=== PATIENT | female | born 1940 | race Caucasian/White ===

== ENCOUNTER 2023-01-29 10:28 | Inpatient (IN) | payer MEDICARE, SELFPAY ==
[2023-01-29 10:40] VITALS: BP 200/74; PULSE 63; RESP 18; TEMP 37.4; O2SAT 96; BMI 24.9
--- NOTE | 2023-01-29 10:48 | CRLHL7_ITS ---
For Patients: As a result of the Century Cures Act, medical imaging exams and procedure reports are released immediately into your electronic medical record. You may view this report before your referring provider. If you have questions, please contact your health care provider. Indication: PAIN, SWOLLEN, DENTAL ABSCESS Technique: Helical axial sections were obtained through the facial skeleton, mandible and adjacent structures without intravenous contrast material. Data was reformatted not only in axial but also coronal planes. Comparison: None Findings: Examination of oral cavity and left facial structures is limited due to significant metallic streak artifact from dental hardware. No fracture is demonstrated in the facial skeleton or mandible. The orbits and their contents are normal in appearance. There is no evidence for penetrating injury to the ocular globes. The lenses are situated in their normally expected anterior locations. No radiodense or metallic foreign body is demonstrated. No significant abnormality is demonstrated in the sinonasal cavities or adjacent structures. Moderate mucosal thickening in the left maxillary sinus. Mild mucosal thickening along the floor of the right maxillary sinus. The ostiomeatal complexes on each side are structurally normal and widely patent. The nasal septum is relatively midline. Periapical lucency along the root of the left maxillary canine tooth with erosion of the buccal cortex. There is moderate adjacent soft tissue swelling of the left nasolabial fold, left facial subcutaneous fat extending to the left submandibular fat concerning for cellulitis. No discrete fluid collection is identified on this noncontrast exam. There is mild thickening of the partially visualized left platysma muscle concerning for myositis. The visualized portions of the brain are normal in appearance. Thinning of the roof and posterior wall of the left superior semicircular canal raises the possibility for dehiscence. Multilevel cervical facet arthrosis. Fusion of the right C2-3 posterior elements. Impression: 1. Periapical lucency along the root of the left maxillary canine tooth with erosion of the buccal cortex. There is moderate adjacent soft tissue swelling of the left nasolabial fold, left facial subcutaneous fat extending to the left submandibular fat concerning for cellulitis. There is mild thickening of the partially visualized left platysma muscle concerning for myositis. No discrete fluid collection is identified on this noncontrast exam. Examination of oral cavity and left facial structures is limited due to significant metallic streak artifact from dental hardware. 2. No facial bone fractures. 3. Thinning of the roof and posterior wall of the left superior semicircular canal raises the possibility for dehiscence. 4. Cervical spondylosis. Please note that all CT scans at this facility use dose modulation, iterative reconstruction, and/or weight-based dosing when appropriate to reduce radiation dose to as low as reasonably achievable. Dictated by Satish Jimenez MD @ 01/29/2023 11:33:27 AM (Electronically Signed)
--- NOTE | 2023-01-29 10:49 | ED.GENADULT ---
HPI - General Adult General Time Seen by Provider: 10:49 Date Seen: 01/29/23 Chief complaint: Dental/Oral/Mouth Injury/Pain Stated complaint: LT side of face very swollen Time Seen by Provider: 01/29/23 10:34 Source: patient Mode of arrival: ambulatory Limitations: no limitations History of Present Illness HPI narrative: Patient is a 82 year white female diabetic insulin-dependent who developed left facial swelling after a sore tooth on the upper gumline about 2 days ago, she noted marked swelling in her left cheek and even up around her eye today. Patient denies rigors or chills has been in a good amount of pain in her left cheek area and gumline area. She has been able to swallow and drink, has no nuchal rigidity. She has been on metformin and insulin as well as metoprolol. Patient presents to ED in moderate discomfort and alert oriented, but seeking help for her situation Related Data Home Medications Medication Instructions Recorded Confirmed insulin glargine 100 unit/mL (3 12 unit subcut HS 05/25/22 01/29/23 mL) subcutaneous pen amlodipine 5 mg tablet 5 mg PO DAILY 01/29/23 01/29/23 chlorthalidone 25 mg tablet 25 mg PO DAILY 01/29/23 01/29/23 insulin aspart U-100 100 unit/mL 5 - 7 unit subcut TIDWMEAL 01/29/23 01/29/23 (3 mL) subcutaneous pen losartan 100 mg tablet 100 mg PO DAILY 01/29/23 01/29/23 metformin 500 mg tablet,extended 2,000 mg PO QPM 01/29/23 01/29/23 release 24 hr metoprolol tartrate 50 mg tablet 50 mg PO BID 01/29/23 01/29/23 Allergies Allergy/AdvReac Type Severity Reaction Status Date / Time No Known Allergies Allergy Verified 01/29/23 13:49 Review of Systems Status of ROS: Reports: 6 or more systems reviewed and unremarkable except as noted in History and below PFSH [facility] Social History Smoking Status: Never smoker Exam Narrative: Exam Narrative: Objective: Patient's vital signs show slightly elevated temperature 99.3?, blood pressure elevated 200/74 O2 sat 96% on room air HEENT shows swelling over her upper eyelid lower eyelid left vehicle area, mild warmth to the vehicle area no obvious fluctuance She has tenderness along her gumline on the left but no obvious abscess throat appears clear Neck is supple Pulse regular Neurologic nonfocal Const: Vital Signs, click to edit/add: Vital Signs - 24 hr 01/29/23 10:40 Temperature 99.3 F Pulse Rate [Right Pulse Oximeter] 63 Respiratory Rate 18 Blood Pressure [Ri ght Upper Arm] 200/74 H Pulse Oximetry 96 Oxygen Delivery Me thod Room Air Course Vital Signs Vital signs: Initial Vital Signs Temperature 99.3 F 01/29/23 10:40 Temperature Source Temporal Artery Scan 01/29/23 10:40 Pulse Rate 63 01/29/23 10:40 Respiratory Rate 18 01/29/23 10:40 Blood Pressure 200/74 H 01/29/23 10:40 Blood Pressure Mean 116 H 01/29/23 10:40 Blood Pressure Position Sitting 01/29/23 10:40 Pulse Oximetry 96 01/29/23 10:40 Oxygen Delivery Method Room Air 01/29/23 10:40 Vital Signs Temperature 99.3 F 01/29/23 10:40 Pulse Rate 63 01/29/23 10:40 Respiratory Rate 18 01/29/23 10:40 Blood Pressure 200/74 H 01/29/23 10:40 Pulse Oximetry 96 01/29/23 10:40 Oxygen Delivery Method Room Air 01/29/23 10:40 Temperature 99.3 F 01/29/23 10:40 Pulse Rate 63 01/29/23 10:40 Respiratory Rate 18 01/29/23 10:40 Blood Pressure 200/74 H 01/29/23 10:40 Pulse Oximetry 96 01/29/23 10:40 Oxygen Delivery Method Room Air 01/29/23 10:40 Medical Decision Making [facility] Narrative Medical decision making narrative: The patient is an 82 year white female diabetic with left facial swelling and likely be a cool cellulitis versus tooth infection. I think at this point a CT scan of her face would be appropriate and maxillofacial bones, blood cultures, IV fluid, IV Zosyn. Patient may need observation in the hospital and repeat antibiotic dosages to make sure this is improving. I am concerned that she is diabetic and might have difficulty getting rid of this infection, and may need further workup and follow-up. Please see addendum dictation. Addendum: Patient has an elevated white count, has a low-grade fever, has CT scan of the face that shows facial cellulitis as well as oscar dental infection possible. I think at this point IV antibiotics and hospital admission be appropriate and treat aggressively. Will notify hospitalist Addendum: Discussed with Dr. Cazares [facility] on-call oral surgeon. Discussed the case, CT findings and he was not convinced that immediate surgery without obvious drainable abscess would be appropriate. And would recommend IV antibiotics which is probably would happen at [facility]. I think we can do that here keep close eye on the patient watch her swelling. Pain control and referred to Dentistry as needed. Patient was comfortable plan. Will discuss with hospitalist as mention. Lab Data Labs: Lab Results 01/29/23 Range/Units 11:15 WBC 12.61 H (4.50-11.00) K/uL RBC 4.46 (4.00-5.20) m/uL Hgb 13.9 (12.0-16.0) gm/dL Hct 40.3 (33.0-51.0) % MCV 90 (80-100) fL MCH 31 (26-34) pg MCHC 35 (32-36) gm/dL RDW Coeff of Funmilayo 11.9 (11.5-15.5) % Plt Count 261 (140-440) K/uL Neut % (Auto) 78.8 H (42.0-72.0) % Lymph % (Auto) 10.9 L (20-44) % [place] % (Auto) 8.1 (0.0-11.0) % Eos % (Auto) 1.8 (0.0-7.0) % Baso % (Auto) 0.2 (0.0-3.0) % Neut # (Auto) 9.90 H (1.7-7.0) K/uL Lymph # (Auto) 1.40 (0.90-2.90) K/uL [place] # (Auto) 1.00 H (0.00-0.90) K/UL Eos # (Auto) 0.20 (0.00-0.50) K/uL Baso # (Auto) 0.00 (0.00-0.30) K/uL Sodium 136 (135-149) mmol/L Potassium 3.7 (3.6-5.1) mmol/L Chloride 102 (96-114) mmol/L Carbon Dioxide 25 (20-32) mmol/L BUN 20 (7-30) mg/dL Creatinine 0.7 (0.5-1.5) mg/dL Estimated Creat Clear 32.73 Estimated GFR 86 ml/min Glucose 268 H (60-115) mg/dL Calcium 9.7 (8.4-10.6) mg/dL C-Reactive Protein 5.2 H (0.5-1.0) mg/dL
[2023-01-29 11:20] LABS: Basophils Percent Auto 0.2 % (0.0-3.0); Eosinophils Percent Auto 1.8 % (0.0-7.0); Hematocrit 40.3 % (33.0-51.0); Hemoglobin* 13.9 gm/dL (12.0-16.0); Immature Granulocytes Pct Auto 0.2 %; Lymphocytes Percent Auto 10.9 % (20-44); Mean Corpuscular HGB Conc 35 gm/dL (32-36); Mean Corpuscular Hemoglobin 31 pg (26-34); Mean Corpuscular Volume 90 fL (80-100); Monocytes Percent Auto 8.1 % (0.0-11.0); Neutrophils Percent Auto 78.8 % (42.0-72.0); Platelet Count* 261 K/uL (140-440); RDW Coefficient of Variation % 11.9 % (11.5-15.5); Red Blood Count 4.46 m/uL (4.00-5.20); White Blood Count* 12.61 K/uL (4.50-11.00)
[2023-01-29 11:24] LABS: Slide Review Reflex No
[2023-01-29 11:40] LABS: Chloride* 102 mmol/L (96-114); Potassium* 3.7 mmol/L (3.6-5.1); Sodium* 136 mmol/L (135-149)
[2023-01-29 11:43] LABS: Carbon Dioxide* 25 mmol/L (20-32); Creatinine* 0.7 mg/dL (0.5-1.5); Est. Creatinine Clearance* 32.73; Estimated Glomerular Filt Rate 86 ml/min
[2023-01-29 11:44] LABS: Blood Urea Nitrogen* 20 mg/dL (7-30); Calcium* 9.7 mg/dL (8.4-10.6); Glucose* 268 mg/dL (60-115)
[2023-01-29 11:47] LABS: C Reactive Protein* 5.2 mg/dL (0.5-1.0)
[2023-01-29] MEDS: 0.9 % SODIUM CHLORIDE 500 ML 500 ML IV (11:47)
[2023-01-29] MEDS: PIPERACILLIN/TAZOBACTAM 3.375 GM in 0.9 % SODIUM CHLORIDE Mini-bag 100 ML IVPB (11:48)
[2023-01-29] MEDS: MORPHINE 2 MG/ML inj IVP (11:48)
[2023-01-29] MEDS: MORPHINE 4 MG/ML INJ 2 MG IVP (12:47)
[2023-01-29 13:48] VITALS: BP 177/70; PULSE 67; RESP 16; TEMP 36.8; O2SAT 95; BMI 26.1
--- NOTE | 2023-01-29 14:07 | P.IMHP_ITS ---
Hospitalist- H&P: HPI History of Present Illness Date Seen: 01/29/23 Chief complaint: LT side of face very swollen Narrative: Lynn Martins is a 82 year old female presenting for evaluation of left facial swelling. The patient lives alone in [place]. She has a history of Insulin dependent T2DM, HTN, who has noted progressive left side facial swelling. She has had increased pain when chewing. She is able to tolerate oral liquids and solids. She has had low grade temp but no fever. She presented to ED where CT face showed Periapical lucency along the root of the left maxillary canine tooth with erosion of the buccal cortex. There is moderate adjacent soft tissue swelling of the left nasolabial fold, left facial subcutaneous fat extending to the left submandibular fat concerning for cellulitis. There is mild thickening of the partially visualized left platysma muscle concerning for myositis. No discrete fluid collection is identified on this noncontrast exam. Examination of oral cavity and left facial structures is limited due to significant metallic streak artifact from dental hardware. No facial bone fractures. Thinning of the roof and posterior wall of the left superior semicircular canal raises the possibility for dehiscence. Her case was discussed with oral surgery. She was started on zosyn and admitted for further evaluation. [facility] Social History Smoking Status: Never smoker Do you use any of these nicotine containing products: None How often do you have a drink containing alcohol: never How often do you have six or more drinks on one occasion: Never AUDIT-C Alcohol total score: 0 Non-prescribed substance use: denies use Caffeine: Yes service: No Meds Home Medications and Allergies Home Medications Medication Instructions Recorded Confirmed Type insulin glargine 100 unit/mL (3 12 unit subcut HS 05/25/22 01/29/23 History mL) subcutaneous pen amlodipine 5 mg tablet 5 mg PO DAILY 01/29/23 01/29/23 History chlorthalidone 25 mg tablet 25 mg PO DAILY 01/29/23 01/29/23 History insulin aspart U-100 100 unit/mL 5 - 7 unit subcut TIDWMEAL 01/29/23 01/29/23 History (3 mL) subcutaneous pen losartan 100 mg tablet 100 mg PO DAILY 05/06/23 05/06/23 History metformin 500 mg tablet,extended 2,000 mg PO QPM 01/29/23 01/29/23 History release 24 hr metoprolol tartrate 50 mg tablet 50 mg PO BID 01/29/23 01/29/23 History Allergies Allergy/AdvReac Type Severity Reaction Status Date / Time No Known Allergies Allergy Verified 01/29/23 13:49 Exam Narrative: Exam Narrative: Gen: no acute distress HEENT: NCAT EOMI mmm; erythema and edema of left face Neck: Supple CV: RRR normal s1 s2 Lungs: CTAB Abd: Soft,nt, nd Neuro: Alert, oriented, CN grossly intact; nonfocal screening exam Psych: appropriate affect MSK: age appropriate muscle mass Skin; Warm, dry no rash on face Const: Vital Signs, click to edit/add: Vital Signs - 24 hr 01/29/23 10:40 Temperature 99.3 F Pulse Rate [Right Pulse Oximeter] 63 Respiratory Rate 18 Blood Pressure [Ri ght Upper Arm] 200/74 H Pulse Oximetry 96 Oxygen Delivery Me thod Room Air Hospitalist - H&P: Result Labs Labs: Short CBC 01/29/23 Range/Units 11:15 WBC 12.61 H (4.50-11.00) K/uL Hgb 13.9 (12.0-16.0) gm/dL Hct 40.3 (33.0-51.0) % Plt Count 261 (140-440) K/uL BMP 01/29/23 11:15 Sodium 136 Potassium 3.7 Chloride 102 Carbon Dioxide 25 BUN 20 Creatinine 0.7 Glucose 268 H Calcium 9.7 Assessment and Plan Assessment and plan (1) Cellulitis: Status: Acute (2) Hypertension: Status: Acute (3) Type II diabetes mellitus: Status: Acute Plan Lynn Martins is a 82 year old female presenting for evaluation of left facial swelling. She presented to ED where CT face showed Periapical lucency along the root of the left maxillary canine tooth with erosion of the buccal cortex. There is moderate adjacent soft tissue swelling of the left nasolabial fold, left facial subcutaneous fat extending to the left submandibular fat concerning for cellulitis. There is mild thickening of the partially visualized left platysma muscle concerning for myositis. No discrete fluid collection is identified on this noncontrast exam. Examination of oral cavity and left facial structures is limited due to significant metallic streak artifact from dental hardware. No facial bone fractures. Thinning of the roof and posterior wall of the left superior semicircular canal raises the possibility for dehiscence. Her case was discussed with oral surgery. She was started on zosyn and admitted for further evaluation. 1. Left facial cellulitis 2. Hx of Type II DM 3. Hx of HTn Plan -admit to inpatient -dc zosyn; start unasyn -pain control -hold metformin -continue presser automatic antihypertensives -outpatient Oral Surgery follow up; if no improvement consider repeat CT scan with contrast Code-Full DVt ppx-
[2023-01-29] MEDS: OXYCODONE 5 MG TABLET PO ×2 (14:32→22:28)
[2023-01-29 15:51] VITALS: BP 167/98; PULSE 66; RESP 18; TEMP 37.2; O2SAT 94
[2023-01-29] MEDS: AMPICILLIN/SULBACTAM 3 GM in 0.9 % SODIUM CHLORIDE Mini-bag 100 ML IVPB ×2 (16:23→22:30)
[2023-01-29] MEDS: SODIUM CHLORIDE 0.9 % (FLUSH) 10 ML SYRINGE 5 ML IVF ×2 (16:23→20:17)
[2023-01-29] MEDS: ONDANSETRON 2 MG/ML inj 4 MG IVP (16:35)
[2023-01-29] MEDS: 0.9 % SODIUM CHLORIDE 250 ml IV (16:36)
[2023-01-29 19:22] VITALS: BP 174/71; PULSE 73; RESP 20; TEMP 36.7; O2SAT 94
[2023-01-29] MEDS: PROCHLORPERAZINE 5 MG/ML VIAL IVP (20:16)
[2023-01-29] MEDS: METOPROLOL TARTRATE 50 MG TABLET PO (21:08)
--- NOTE | 2023-01-29 22:15 | PC.NURSE ---
[id number]: Patient pleasant and cooperative. A&Ox3. Afebrile. Rates pain 2-3/10 on L. side of face. Zofran and Compazine administered for emesis x2. Independent in room and walked halls x2. Eating and voiding.
[2023-01-29] MEDS: MELATONIN 3 MG TABLET PO (22:28)
[2023-01-29 22:37] VITALS: BP 166/95; PULSE 68; RESP 18; TEMP 36.9; O2SAT 93
[2023-01-29 23:00] VITALS: RESP 18
[2023-01-30] VITALS (9 sets, daily range): BP systolic 148–165; BP diastolic 56–82; PULSE 55–73; RESP 16–20; TEMP 36.6–37.5; O2SAT 82–95
[2023-01-30] MEDS: AMPICILLIN/SULBACTAM 3 GM in 0.9 % SODIUM CHLORIDE Mini-bag 100 ML IVPB ×4 (03:42→21:34)
--- NOTE | 2023-01-30 06:38 | PC.NURSE ---
23-: pleasant and cooperative. [place]. Hearing aids charging. Indep. Walks halls. Left side of face and eye swollen, pain controlled with prn oxy given prev shift, pt declined need for ice pack or Tylenol. O2 sats dropped 82% on RA while asleep, 2L O2 NC applied, maintaining sats in the low 90s.
[2023-01-30 06:48] LABS: Basophils Percent Auto 0.4 % (0.0-3.0); Eosinophils Percent Auto 0.8 % (0.0-7.0); Hemoglobin* 12.4 gm/dL (12.0-16.0); Immature Granulocytes Pct Auto 0.2 %; Lymphocytes Percent Auto 13.1 % (20-44); Mean Corpuscular HGB Conc 34 gm/dL (32-36); Mean Corpuscular Hemoglobin 32 pg (26-34); Mean Corpuscular Volume 93 fL (80-100); Monocytes Percent Auto 9.2 % (0.0-11.0); Neutrophils Percent Auto 76.3 % (42.0-72.0); Platelet Count* 225 K/uL (140-440); Red Blood Count 3.88 m/uL (4.00-5.20); White Blood Count* 11.17 K/uL (4.50-11.00)
[2023-01-30 06:54] LABS: Slide Review Reflex No
[2023-01-30 06:58] LABS: Chloride* 102 mmol/L (96-114); Potassium* 3.9 mmol/L (3.6-5.1); Sodium* 137 mmol/L (135-149)
[2023-01-30 07:01] LABS: Creatinine* 0.8 mg/dL (0.5-1.5); Est. Creatinine Clearance* 32.73; Estimated Glomerular Filt Rate 74 ml/min
[2023-01-30 07:02] LABS: Blood Urea Nitrogen* 18 mg/dL (7-30); Calcium* 9.4 mg/dL (8.4-10.6); Carbon Dioxide* 31 mmol/L (20-32); Glucose* 178 mg/dL (60-115)
[2023-01-30 07:16] LABS: C Reactive Protein* 13.6 mg/dL (0.5-1.0)
[2023-01-30] MEDS: LOSARTAN POTASSIUM 50 MG TABLET 100 MG PO (08:43)
[2023-01-30] MEDS: AMLODIPINE 5 MG TABLET PO (08:44)
[2023-01-30] MEDS: METOPROLOL TARTRATE 50 MG TABLET PO ×2 (08:44→20:39)
[2023-01-30] MEDS: CHLORTHALIDONE 25 MG TABLET PO (08:45)
[2023-01-30] MEDS: SODIUM CHLORIDE 0.9 % (FLUSH) 10 ML SYRINGE 5 ML IVF ×2 (09:26→20:45)
--- NOTE | 2023-01-30 15:15 | PM.IMPN1 ---
Progress Note: A&P Assessment and plan (1) Cellulitis: Problem details: Left facial likely due to left canine dental abscess. Responding to IV ampicillin with sulbactam. Status: Acute (2) Hypertension: Status: Acute (3) Type II diabetes mellitus: Status: Acute Plan 1. Reviewed impression with patient. 2. Answered her questions. 3. Continue current plan of care including IV antibiotics and insulin. 4. Patient agreeable to above stated plans and recommendations Time Spent With Patient Total time spent: 30 minute Subjective Time Seen by Provider: 09:00 Date Seen: 01/30/23 Interval history: Hospital day 2. 82-year-old woman with left facial cellulitis from left canine dental abscess. She was given a single dose of piperacillin with tazobactam IV in the emergency department yesterday then subsequently admitted to the floor and started on ampicillin sulbactam. Tolerating this. Exam Narrative: Exam Narrative: T-max today 99.5? F. Appears comfortable and in no acute distress. Friendly, cooperative, articulate. Alert and oriented to self, place, time, situation. Mood and affect are congruent. Persistent mild to moderate amount of left facial erythema and swelling including left suborbital. Patient indicates this is vastly improved from yesterday. Oropharynx benign in appearance. Tenderness to palpation over left canine. Neck is supple. Lungs clear to auscultation. Heart tones with regular rhythm. Abdomen benign. Const: Vital Signs, click to edit/add: Vital Signs - 24 hr 01/29/23 15:51 01/29/23 19:22 01/29/23 22:37 Temperature 98.9 F 98.0 F 98.4 F Pulse Rate [Apical ] 66 73 68 Pulse Rate [Pulse Oximeter] Respiratory Rate 18 20 18 Blood Pressure [Ri ght Arm] 167/98 H 174/71 H 166/95 H Pulse Oximetry 94 94 93 Oxygen Delivery Me thod Room Air Room Air Room Air Oxygen Flow Rate 01/29/23 23:00 01/30/23 03:00 01/30/23 03:53 Temperature 99.4 F Pulse Rate [Apical ] Pulse Rate [Pulse Oximeter] 69 Respiratory Rate 18 20 Blood Pressure [Ri ght Arm] 148/56 H Pulse Oximetry 82 L 92 Oxygen Delivery Me thod Room Air Nasal Cannula Oxygen Flow Rate 2 01/30/23 08:09 01/30/23 12:45 Temperature 99.5 F 98.5 F Pulse Rate [Apical ] Pulse Rate [Pulse Oximeter] 73 58 L Respiratory Rate 16 16 Blood Pressure [Ri ght Arm] 153/82 H 160/67 H Pulse Oximetry 91 91 Oxygen Delivery Me thod Room Air Room Air Oxygen Flow Rate Documenting provider has reviewed patient's vital signs: yes HENMT: Mouth: tongue not normal Labs Labs: Laboratory Results - last 24 hr 01/30/23 06:10 WBC 11.17 H RBC 3.88 L Hgb 12.4 Hct 36.0 MCV 93 MCH 32 MCHC 34 RDW Coeff of Funmilayo 12.0 Plt Count 225 Neut % (Auto) 76.3 H Lymph % (Auto) 13.1 L [place] % (Auto) 9.2 Eos % (Auto) 0.8 Baso % (Auto) 0.4 Neut # (Auto) 8.50 H Lymph # (Auto) 1.50 [place] # (Auto) 1.00 H Eos # (Auto) 0.10 Baso # (Auto) 0.00 Sodium 137 Potassium 3.9 Chloride 102 Carbon Dioxide 31 BUN 18 Creatinine 0.8 Estimated Creat Clear 32.73 Estimated GFR 74 Glucose 178 H Calcium 9.4 C-Reactive Protein 13.6 H
[2023-01-30] MEDS: 0.9 % SODIUM CHLORIDE 250 ml IV ×2 (16:19→16:22)
--- NOTE | 2023-01-30 17:45 | PC.NURSE ---
Pt calm and cooperative during shift (15-1900). Pt alert and oriented. Pt had pain ranging from 1-2. Pain is a 1 when the left side of face is untouched and rates pain a 2 when touching. Pt did not want anything for pain during shift. Pt is independent in room/hallway. Pt's blood glucose 181 see EMAR for insulin adminstration.Pt's IV infiltrated, it was removed catheter intact and new IV placed in L forearm.
--- NOTE | 2023-01-30 18:07 | PC.NURSE ---
Shift Summary 07-15: Patient pleasant and cooperative, up independently, seen walking in halls. Denies nausea, rated pain 2/10 denied need for medication. Tolerating regular diet. Vitals stable and WNL.
[2023-01-30] MEDS: MELATONIN 3 MG TABLET PO (20:38)
[2023-01-31] MEDS: AMPICILLIN/SULBACTAM 3 GM in 0.9 % SODIUM CHLORIDE Mini-bag 100 ML IVPB ×2 (03:24→10:06)
[2023-01-31 03:31] VITALS: BP 136/85; PULSE 65; RESP 16; TEMP 37.1; O2SAT 92
--- NOTE | 2023-01-31 03:34 | PC.NURSE ---
Pt rested well this night. Up IND and walking halls. Afebrile. Left side of face slightly swollen. Rates 1-2 with touch. Oriented and pleasant.
[2023-01-31 07:00] VITALS: BP 163/78; PULSE 62; RESP 14; TEMP 36.7; O2SAT 96
[2023-01-31 07:17] LABS: Hematocrit 34.4 % (33.0-51.0); Hemoglobin* 11.8 gm/dL (12.0-16.0); Mean Corpuscular HGB Conc 34 gm/dL (32-36); Mean Corpuscular Hemoglobin 31 pg (26-34); Mean Corpuscular Volume 92 fL (80-100); Platelet Count* 207 K/uL (140-440); Red Blood Count 3.76 m/uL (4.00-5.20); Slide Review Reflex No; White Blood Count* 8.19 K/uL (4.50-11.00)
[2023-01-31 07:36] LABS: Chloride* 101 mmol/L (96-114); Potassium* 3.2 mmol/L (3.6-5.1); Sodium* 136 mmol/L (135-149)
[2023-01-31 07:39] LABS: Blood Urea Nitrogen* 20 mg/dL (7-30); Carbon Dioxide* 29 mmol/L (20-32); Creatinine* 0.6 mg/dL (0.5-1.5); Est. Creatinine Clearance* 32.73; Estimated Glomerular Filt Rate 90 ml/min; Glucose* 166 mg/dL (60-115)
[2023-01-31 07:40] LABS: Calcium* 9.2 mg/dL (8.4-10.6)
[2023-01-31] MEDS: LOSARTAN POTASSIUM 50 MG TABLET 100 MG PO (09:13)
[2023-01-31] MEDS: AMLODIPINE 5 MG TABLET PO (09:13)
[2023-01-31] MEDS: METOPROLOL TARTRATE 50 MG TABLET PO (09:13)
[2023-01-31] MEDS: CHLORTHALIDONE 25 MG TABLET PO (09:13)
[2023-01-31] MEDS: SODIUM CHLORIDE 0.9 % (FLUSH) 10 ML SYRINGE 5 ML IVF ×2 (10:06→10:07)
[2023-01-31 10:51] VITALS: RESP 14; TEMP 36.7
--- NOTE | 2023-01-31 12:20 | PC.NURSE ---
Patient alert and oriented x 3. Pain to left upper lip and left maxilla reported, patients declines any tylenol for pain. Lungs clear and bowel sounds active x 4 quadrants. Patient reports that she was able to make a dental appointment for this afternoon. Patient discharged from unit at 1125 accompanied by self and patient 's personal vehicle.
--- NOTE | 2023-01-31 12:35 | P.DS_ITS ---
DS: Providers Provider Time Seen by Provider: 08:20 Date Seen: 01/31/23 Date of admission: 01/29/23 14:07 Primary care physician: Not a Local Provider Admitting Clinician: Benito Matias MD Attending Physician on discharge: Benito Matias MD Date of Discharge: 01/31/23 DS: Diagnosis Discharge Diagnosis (1) Cellulitis: Status: Acute Problem details: Left facial likely due to left canine dental abscess. Responding to IV ampicillin with sulbactam. (2) Dental abscess: Status: Acute Problem details: Left canine (3) Type II diabetes mellitus: Status: Acute (4) Hypertension: Status: Acute DS: Summary Hospital Course Hospital Course: Lynn Martins is a 82 year old female presenting for evaluation of left facial swelling. The patient lives alone in [place]. She has a history of Insulin dependent T2DM, HTN, who has noted progressive left side facial swelling. She has had increased pain when chewing. She is able to tolerate oral liquids and solids. She has had low grade temp but no fever. She presented to ED where CT face showed?Periapical lucency along the root of the left maxillary canine tooth with erosion of the buccal cortex. There is moderate adjacent soft tissue swelling of the left nasolabial fold, left facial subcutaneous fat extending to the left submandibular fat concerning for cellulitis. There is mild thickening of the partially visualized left platysma muscle concerning for myositis. No discrete fluid collection is identified on this noncontrast exam. Examination of oral cavity and left facial structures is limited due to significant metallic streak artifact from dental hardware. No facial bone fractures. Thinning of the roof and posterior wall of the left superior semicircular canal raises the possibility for dehiscence. Her case was discussed with oral surgery, who recommended admission for IV antibiotics and close monitoring. If she is responsive to the IV antibiotics then in time switch to oral antibiotics and have her follow-up with her dentist in the outpatient setting. If she is not responsive to the IV antibiotics then transfer her to a tertiary care facility that is able to provide source control. Patient responded well to ampicillin sulbactam IV antibiotics at we initiated in hospital. The pain, swelling, erythema improved over the course of the time that she was here in the hospital. We switched to oral Augmentin and arrange for to have follow-up with her dentist the next 2-4 days. She is to return to the dentist's office, Clinic, or hospital sooner if her condition warrants. Status at Discharge Functional status at discharge: independent ambulation Overall status at discharge: patient is progressing back to baseline Time Spent with Patient Time attestation: Total time spent providing and/or coordinating discharge services: Time spent: Less than 30 minutes Exam Narrative: Exam Narrative: T-max today 99.5? F. Appears comfortable and in no acute distress. Friendly, cooperative, articulate.? Alert and oriented to self, place, time, situation.? Mood and affect are congruent. Persistent mild to moderate amount of left facial erythema and swelling including left suborbital.? Patient indicates this is vastly improved from yesterday. Oropharynx benign in appearance.? Tenderness to palpation over left canine. Neck is supple. Lungs clear to auscultation.? Heart tones with regular rhythm.? Abdomen benign. Independent in transfer, station, and gait. No focal motor neurologic deficits. No lower extremity edema. Const: Vital Signs, click to edit/add: Vital Signs - 24 hr 01/30/23 12:45 01/30/23 15:00 01/30/23 15:15 Temperature 98.5 F 98.0 F Pulse Rate [Pulse Oximeter] 58 L 67 67 Respiratory Rate 16 18 18 Blood Pressure [Ri ght Arm] 160/67 H 158/68 H Pulse Oximetry 91 92 Oxygen Delivery Me thod Room Air Room Air 01/30/23 19:00 01/30/23 22:10 01/30/23 22:14 Temperature 98.7 F 97.8 F Pulse Rate [Pulse Oximeter] 65 55 L 55 L Respiratory Rate 16 16 16 Blood Pressure [Ri ght Arm] 165/68 H 151/61 H Pulse Oximetry 94 95 Oxygen Delivery Me thod Room Air Room Air 01/31/23 03:31 01/31/23 07:00 01/31/23 10:51 Temperature 98.7 F 98.0 F 98.0 F Pulse Rate [Pulse Oximeter] 65 62 Respiratory Rate 16 14 14 Blood Pressure [Ri ght Arm] 136/85 163/78 H Pulse Oximetry 92 96 Oxygen Delivery Me thod Room Air Room Air Documenting provider has reviewed patient's vital signs: yes DS: Data Data Completed and Pending Labs on day of discharge: Labs from last 24 hours 01/31/23 06:14 WBC 8.19 RBC 3.76 L Hgb 11.8 L Hct 34.4 MCV 92 MCH 31 MCHC 34 Plt Count 207 Sodium 136 Potassium 3.2 L Chloride 101 Carbon Dioxide 29 BUN 20 Creatinine 0.6 Estimated Creat Clear 32.73 Estimated GFR 90 Glucose 166 H Calcium 9.2 Preliminary micro results at discharge 01/29/23 11:20 Blood Culture - Preliminary Blood NO GROWTH AFTER 48 HOURS 01/29/23 11:15 Blood Culture - Preliminary Blood NO GROWTH AFTER [address] of face: Attestation: I have reviewed the pertinent imaging results. Radiologist's impression: Impression: 1. Periapical lucency along the root of the left maxillary canine tooth with erosion of the buccal cortex. There is moderate adjacent soft tissue swelling of the left nasolabial fold, left facial subcutaneous fat extending to the left submandibular fat concerning for cellulitis. There is mild thickening of the partially visualized left platysma muscle concerning for myositis. No discrete fluid collection is identified on this noncontrast exam. Examination of oral cavity and left facial structures is limited due to significant metallic streak artifact from dental hardware. 2. No facial bone fractures. 3. Thinning of the roof and posterior wall of the left superior semicircular canal raises the possibility for dehiscence. 4. Cervical spondylosis. Discharge Plan Discharge Disposition: Home, Self-Care Date of Admission: 01/29/23 14:07 Attending Provider on Discharge: Benito Matias Primary Care Provider: Provider,Not a Local Condition: Improved Anticipated Discharge Date/Time: 01/31/23 11:30 Discharge Medications: New amoxicillin-pot clavulanate 875-125 mg tablet 1 tab PO BID Qty: 14 0RF acetaminophen 325 mg tablet 650 mg PO QID PRNQty: 100 0RF Continued insulin glargine 100 unit/mL (3 mL) insulin pen 12 unit subcut HS chlorthalidone 25 mg tablet 25 mg PO DAILY amlodipine 5 mg tablet 5 mg PO DAILY metoprolol tartrate 50 mg tablet 50 mg PO BID losartan 100 mg tablet 100 mg PO DAILY metformin 500 mg tablet extended release 24 hr 2,000 mg PO QPM insulin aspart U-100 100 unit/mL (3 mL) insulin pen 5 - 7 unit subcut TIDWMEAL Rx Instructions: TAKES 5 UNITS WITH BREAKFAST 6-7 UNITS WITH LUNCH AND SUPPER Discharge Orders: Discharge Order (Routine); Ordered 01/31/23 Ordered By: Benito Matias Patient Education: Acetaminophen (By mouth), Amoxicillin/Clavulanate Potassium (By mouth) (Augmentin, Augmentin..., Dental Abscess (GEN), Cellulitis (GEN) Additional Instructions: 1. Make appointment to see your dentist in next 2-4 days; 2. Complete entire course of antibiotic therapy initiated; 3. Return to dentist, clinic, or hospital sooner if needed. Activity Level: No Restrictions and Activity as Tolerated Discharge Diet: Diabetic Follow Up Appointments: Provider,Not a Local [Primary Care Provider] - (Make an appointment to see your dentist in 2 to 4 days. ) Mona Al MD [Referring] - Forms: Tag & See Info Instructions
== END 2023-01-31 11:20 | disposition home or self-care (01) | DRG 603 ==
LOC: ED 12:03 → MEDSURG 13:13
PROVIDERS: Hospitalist; Admitting Provider Internal Medicine; Emergency Provider Family Medicine; Visit Provider Internal Medicine
DX: L03.211 Cellulitis of face (principal); K04.7 Periapical abscess without sinus; E11.9 Type 2 diabetes mellitus without complications; Z79.4 Long term (current) use of insulin; Z79.84 Long term (current) use of oral hypoglycemic drugs; I10 Essential (primary) hypertension
CPT/HCPCS: 36415; 70486; 80048; 82962; 85025; 85027; 86140; 87040; 99284; A9270; J0295; J0780; J2270; J2405; J2543; J7050; J7120

== ENCOUNTER 2023-11-28 10:33 | Outpatient (RCR) | payer SELFPAY | END 2024-01-23 14:47 | disposition home or self-care (01) | LOC: MOW 10:33 | PROVIDERS: Visit Provider Physician Assistant | DX: Z76.0 Encounter for issue of repeat prescription (principal) | CPT/HCPCS: S5170 ==

== ENCOUNTER 2024-04-15 20:53 | Emergency (ER) | payer MEDICARE, MEDICAID, SELFPAY ==
[2024-04-15 20:59] VITALS: BP 155/98; PULSE 72; RESP 18; TEMP 36.7; O2SAT 96; BMI 23.8
--- NOTE | 2024-04-15 21:18 | ED.GENADULT ---
HPI - General Adult General Chief complaint: Unspecified Complaint, Adult Stated complaint: shingles, unable to sleep Time Seen by Provider: 04/15/24 20:56 Source: patient and family Mode of arrival: ambulatory Limitations: no limitations History of Present Illness HPI narrative: Patient is a very nice 83-year-old lady who developed shingles approximately 10 days ago and has finished her course of Valtrex, she finds that the Tylenol number threes make her too tired, and has split them in half, and still makes her somewhat groggy. She is forgetting to take her other medications. She has not had fevers chills there is no nausea vomiting she denies a headache. Or any other stigmata that would suggest an calf follow-up with the. She has no problems walking, she does not have a wide-based gait. She is brought in tonight by her son. She has not tried Tylenol she says that does not any not work for her, despite multiple people telling her to try this. She does find ibuprofen very helpful for her pain. She is followed by her primary care physician. Related Data Home Medications ?Medication ?Instructions ?Recorded ?Confirmed insulin glargine 100 unit/mL (3 12 unit subcut HS 05/25/22 01/29/23 mL) subcutaneous pen amlodipine 5 mg tablet 5 mg PO DAILY 01/29/23 01/29/23 chlorthalidone 25 mg tablet 25 mg PO DAILY 01/29/23 01/29/23 insulin aspart U-100 100 unit/mL 5 - 7 unit subcut TIDWMEAL 01/29/23 01/29/23 (3 mL) subcutaneous pen losartan 100 mg tablet 100 mg PO DAILY 01/29/23 01/29/23 metformin 500 mg tablet,extended 2,000 mg PO QPM 01/29/23 01/29/23 release 24 hr metoprolol tartrate 50 mg tablet 50 mg PO BID 01/29/23 01/29/23 Previous Rx's ?Medication ?Instructions ?Recorded acetaminophen 325 mg tablet 650 mg (2 x 325 mg) PO QID PRN 01/31/23 #100 tabs amoxicillin 875 mg-potassium 1 tab PO BID #14 tabs 01/31/23 clavulanate 125 mg tablet gabapentin 100 mg capsule 100 mg PO TID #90 caps 04/15/24 Allergies Allergy/AdvReac Type Severity Reaction Status Date / Time No Known Allergies Allergy Verified 01/29/23 13:49 Review of Systems Status of ROS: Reports: 10 or more systems reviewed and unremarkable except as noted in History and below [facility] Social History Smoking Status: Never smoker Do you use any of these nicotine containing products: None How often do you have a drink containing alcohol: never How often do you have six or more drinks on one occasion: Never AUDIT-C Alcohol total score: 0 Non-prescribed substance use: denies use Caffeine: Yes service: No Exam Narrative: Exam Narrative: On examination of the T7 dermatome on on the left side, there is a characteristic dried up rash consistent with shingles. No obvious open, or draining lesions. Const: Vital Signs, click to edit/add: Vital Signs - 24 hr 04/15/24 20:59 Temperature 98.0 F Pulse Rate [Pulse Oximeter] 72 Respiratory Rate 18 Blood Pressure [Ri ght Upper Arm] 155/98 H Pulse Oximetry 96 Oxygen Delivery Me thod Room Air Documenting provider has reviewed patient's vital signs: yes Course Course ED Course: I discussed with her and her son, what is been going on with her treatment, she clearly has some grogginess associated with the narcotics, the all can cause this and other side effects. I would recommend that she try Tylenol 1st 1 g 3 times a day, then use some ibuprofen, and then if that does not work then we can try some gabapentin. She was on gabapentin once before she says for tailbone pain that did not work, and I says clearly that is not the indication for this. And it works very well for nerve pain. Any sort of medication can and may not work, but I would think it is worthwhile trying. I went over the risks benefits and side effects of this, and the titration that goes with this. And they think they can try this. They were little concerned with not getting a prescription for more Valtrex, and I explained to them there is no indication for this. I do not think that she has any and couple up with the based on what I am seeing. Vital Signs Vital signs: Initial Vital Signs Temperature 98.0 F 04/15/24 20:59 Temperature Source Temporal Artery Scan 04/15/24 20:59 Pulse Rate 72 04/15/24 20:59 Respiratory Rate 18 04/15/24 20:59 Blood Pressure 155/98 H 04/15/24 20:59 Blood Pressure Mean 117 H 04/15/24 20:59 Blood Pressure Position Sitting 04/15/24 20:59 Pulse Oximetry 96 04/15/24 20:59 Oxygen Delivery Method Room Air 04/15/24 20:59 Vital Signs Temperature 98.0 F 04/15/24 20:59 Pulse Rate 72 04/15/24 20:59 Respiratory Rate 18 04/15/24 20:59 Blood Pressure 155/98 H 04/15/24 20:59 Pulse Oximetry 96 04/15/24 20:59 Oxygen Delivery Method Room Air 04/15/24 20:59 Temperature 98.0 F 04/15/24 20:59 Pulse Rate 72 04/15/24 20:59 Respiratory Rate 18 04/15/24 20:59 Blood Pressure 155/98 H 04/15/24 20:59 Pulse Oximetry 96 04/15/24 20:59 Oxygen Delivery Method Room Air 04/15/24 20:59 Discharge Plan Discharge Clinical Impression: Shingles, Inadequate pain control Patient Disposition: Home w/ Parent or Adult Condition: Stable Instructions: Shingles (ED), Pain Management in Older Adults (DC) Additional Instructions: One star was some Tylenol, and ibuprofen for the discomfort. He may take Tylenol 1 g 3 times a day for the pain. Along with ibuprofen 600 mg 3 times a day. If you feel you still need some other prescription medication we can try the gabapentin we will start with a low-dose of 100 mg by mouth 3 times a day. Follow-up with primary care. Stop the Tylenol with codeine. Activity Level: Light activity Prescriptions: New gabapentin 100 mg capsule 100 mg PO TID Qty: 90 2RF Rx Instructions: Start with 1 pill once a day, increase to 1 pill twice daily after 3 days, then 1 pill 3 times a day after that. Barring side effects such as sedation. No Action insulin glargine 100 unit/mL (3 mL) insulin pen 12 unit subcut HS chlorthalidone 25 mg tablet 25 mg PO DAILY amlodipine 5 mg tablet 5 mg PO DAILY metoprolol tartrate 50 mg tablet 50 mg PO BID losartan 100 mg tablet 100 mg PO DAILY metformin 500 mg tablet extended release 24 hr 2,000 mg PO QPM insulin aspart U-100 100 unit/mL (3 mL) insulin pen 5 - 7 unit subcut TIDWMEAL Rx Instructions: TAKES 5 UNITS WITH BREAKFAST 6-7 UNITS WITH LUNCH AND SUPPER amoxicillin-pot clavulanate 875-125 mg tablet 1 tab PO BID Qty: 14 0RF acetaminophen 325 mg tablet 650 mg PO QID PRNQty: 100 0RF Follow Up/Referrals: Provider,Not a Local [Primary Care Provider] - Stand Alone Forms: WhoGotStuffealth Info Instructions
--- OUTSIDE RECORDS SUMMARY | 2024-04-15 21:24 | XMS_ITS | Clinical Summary ---
Author Organization [facility] Address [place], [place] [address] Care Team Providers Care Engine Lathe Set Up Operator Name Role Phone Jelena Ron Primary Care Provider [phone] Mona Max MOVIE EDITOR Student Unavailable [phone] Allergies No known active allergies Medications Medication Sig Dispensed Refills Start Date End Date Status blood-glucose meterIndications :Type 2 diabetes mellitus without complication, with long-term current use of insulin (HC) Dispense meter, test strips, lancets covered by pt ins. E11.9 NIDDM type II - Test 4 times/day. Reason: Hypoglycemia 1 Device 9 Active OneTouch Delica Plus Lancet 30 gauge miscIndications: Type 2 diabetes mellitus without complication, with long-term current use of insulin (HC) TEST DIRECTED FOUR TIMES DAILY 400 Each 3 3 Active blood sugar diagnostic (OneTouch Verio test strips) stripIndications :Type 2 diabetes mellitus without complication, with long-term current use of insulin (HC) TEST FOUR TIMES DAILY 400 Each 3 3 Active Insulin Spring, Disposable, (BD Suly 2nd Gen Pen Needle) 32 gauge x 5/32Indications :Type 2 diabetes mellitus without complication, with long-term current use of insulin (HC) As directed. Remove the 2 covers on the insulin pen needle before administering insulin dose. 400 Each 3 3 Active cholecalciferol (Vitamin D) 1,000 unit tabletIndication s:Vitamin D deficiency Take 1 Tablet (1,000 units) by mouth once daily. 90 Tablet 3 3 Active aspirin (ECOTRIN) 81 mg enteric coated tabletIndication s:3rd cranial nerve palsy, left Take 1 Tablet (81 mg) by mouth once daily with a meal. 3 Active amLODIPine (NORVASC) 10 mg tabletIndication s:Hypertension, unspecified type Take 1 Tablet (10 mg) by mouth once daily. 90 Tablet 3 3 Active hydrALAZINE (APRESOLINE TABLET) 50 mg tabletIndication s:Hypertensive crisis Take 2 Tablets (100 mg) by mouth three times daily. 180 Tablet 11 3 Active hydroCHLOROthiaz young (HCTZ) 25 mg tabletIndication s:Hypertension, unspecified type Take 1 Tablet (25 mg) by mouth once daily. 90 Tablet 3 3 Active labetaloL (TRANDATE) 200 mg tabletIndication s:Hypertensive urgency Take 1 Tablet (200 mg) by mouth two times daily. 180 Tablet 3 3 Active nystatin (MYCOSTATIN) 100,000 unit/gram topical creamIndications :Intertrigo Apply topically to affected area(s) two times daily. 30 g 3 Active famotidine (PEPCID) 20 mg tabletIndication s:Acute gastritis without hemorrhage, unspecified gastritis type Take 1 Tablet (20 mg) by mouth two times daily. 180 Tablet 3 3 Active atorvastatin (LIPITOR) 10 mg tabletIndication s:3rd cranial nerve palsy, left Take 1 Tablet (10 mg) by mouth at bedtime. 90 Tablet 3 4 Active insulin aspart, U-100, (NOVOLOG FLEXPEN) 100 unit/mL (3 mL) penIndications:T ype II diabetes mellitus with complication (HC) 5 units before breakfast and 6-7 units before lunch and 5 units before supper meals 60 mL 4 Active sertraline (ZOLOFT) 50 mg tabletIndication s:Adjustment disorder with depressed mood Take 1 Tablet (50 mg) by mouth every morning. 90 Tablet 1 4 Active acetaminophen (TYLENOL EXTRA STRGTH) 500 mg tablet Take 500 mg by mouth every 4 hours if needed. Take 1-2 tablets every 4 hours PRN pain max dosing 4000mg in 24 hours. 4 Active hydrOXYzine HCL (ATARAX) 25 mg tabletIndication s:Primary insomnia Take 1 Tablet (25 mg) by mouth at bedtime. 90 Tablet 3 4 Active insulin glargine, U-100, (Lantus Solostar U-100 Insulin) 100 unit/mL (3 mL) penIndications:T ype II diabetes mellitus with complication (HC) Inject 12 units subcutaneous at bedtime. 15 mL 2 4 Active FreeStyle Smith 3 Sensor for continuous blood glucose monitor (CGM)Indications :Type II diabetes mellitus with complication (HC) To be used to read blood sugars, follow filter cleaner directions. 6 Each 3 4 Active FreeStyle Smith 3 [place] for continuous blood glucose monitor (CGM)Indications :Type II diabetes mellitus with complication (HC) To be used to read blood sugars follow filter cleaner directions. 1 Each 4 Active oxybutynin (DITROPAN) 5 mg tabletIndication s:OAB (overactive bladder) Take 0.5 Tablets (2.5 mg) by mouth once daily in the evening. 45 Tablet 4 Active valsartan (DIOVAN) 160 mg tabletIndication s:Hypertensive urgency Take 1 Tablet (160 mg) by mouth two times daily. 180 Tablet 3 4 Active Semglee,insulin glarg-yfgn,Pen 100 unit/mL (3 mL) pen INJECT 15 UNIT SUBCUTANEOUS AT BEDTIME 4 Active acetaminophen-co deine (TYLENOL #3) 300-30 mg per tabletIndication s:Acute left-sided thoracic back pain,Left-sided chest wall pain,Herpes zoster without complication TAKE 0.5-1 TABLETS BY MOUTH 2 TIMES DAILY IF NEEDED FOR PAIN. MAX ACETAMINOPHEN DOSE: 4000MG IN 24 HRS. 10 Tablet 4 Active metFORMIN (GLUCOPHAGE XR) 500 mg Extended-Release tabletIndication s:Type II diabetes mellitus with complication (HC) Take 4 Tablets (2,000 mg) by mouth once daily with evening meal. 360 Tablet 4 Active metFORMIN (GLUCOPHAGE XR) 500 mg Extended-Release tabletIndication s:Type II diabetes mellitus with complication (HC) Take 4 Tablets (2,000 mg) by mouth once daily with evening meal. 360 Tablet 3 3 024 Discontinued(*A vailability/For mulary change/Cost of medication) valsartan (DIOVAN) 160 mg tabletIndication s:Hypertensive urgency Take 1 Tablet (160 mg) by mouth two times daily. 180 Tablet 3 3 024 Discontinued HYDROcodone-acet aminophen (5-325 mg/tablet)Indica tions:Rib pain on left side Take 1/2 tablet-1 tablet up to 2 times in a day for severe pain if needed. Max acetaminophen dose: 4000 mg in 24 hrs. 10 Tablet 4 024 Discontinued(*M edication adjustment) acetaminophen-co deine (TYLENOL #3) 300-30 mg per tabletIndication s:Acute left-sided thoracic back pain,Left-sided chest wall pain Take 0.5-1 Tablets by mouth 2 times daily if needed for Pain. Max acetaminophen dose: 4000mg in 24 hrs. 10 Tablet 4 024 Discontinued(Re order (E-cancel not sent)) acetaminophen-co deine (TYLENOL #3) 300-30 mg per tabletIndication s:Acute left-sided thoracic back pain,Left-sided chest wall pain Take 0.5-1 Tablets by mouth 2 times daily if needed for Pain. Max acetaminophen dose: 4000mg in 24 hrs. 10 Tablet 4 024 Discontinued valACYclovir (Valtrex) 1 gram tabletIndication s:Herpes zoster without complication Take 1 Tablet (1 g) by mouth two times daily for 7 days. 14 Tablet 4 024 Active Problems Problem Noted Date Diagnosed Date Potential for cognitive impairment 09/06/2023 Maxillary sinusitis 09/06/2023 Hypertensive urgency 09/05/2023 3rd cranial nerve palsy, left 09/05/2023 Basal cell carcinoma (BCC) of ala nasi 2 Osteoporosis 01/29/2021 Overview: DEXA scan 01/2021 CKD (chronic kidney disease) stage 3, GFR 30-59 ml/min 10/02/2019 Overview: Initially decreased 05/2019 Problems with hearing, bilateral 09/27/2017 HTN (hypertension) 09/14/2016 Hyperlipidemia associated with type 2 diabetes m karl 09/14/2016 Type II diabetes mellitus with complication 08/27 Overview: Diagnosed about age 60 Resolved Problems Problem Noted Date Diagnosed Date Resolved Date Impacted cerumen of left ear 09/27/2017 11/16/2023 Encounters Date Type Department Care Team Description 04/13/2024 Refill [facility] [address] [place] [address] Jelena Ron PA Refill Request (Metformin) 04/12/[address] [address] Jelena Ron PA Refill Request (Acetaminophen-code ine) 04/11/[address] [address] Jelena Ron PA Refill Request (Valtrex & TYLENOL #3) 04/10/[address] [address] Jelena Ron PA Medication Management 04/06/2024 6:30 PM CDT Office Visit [facility] [address] [place] [phone] Lizz Calderón NP Derm Problem (rash left side and back, painful) 04/06/2024 1:50 PM CDT Office Visit [address] [address] Jelena Ron PA Pain (Left rib cage is very painful-hurts to lay on back and very painful to hit a bump in the car) 04/06/2024 Nurse Triage [facility] [address] [place] [address] Jelena Ron PA Derm Problem (Painful linear, blistered rash to left trunk) 04/06/2024 Travel 04/05/[address] [place] [address] Jelena Ron PA Results 04/03/[address] [address] Jelena Ron PA Refill Request (Valsartan) 03/24/[address] [address] Jelena Ron PA Refill Request (Valsartan, Oxybutynin) 02/03/2024 2:00 PM CDT Ancillary Procedure [address] [address] 02/03/2024 1:30 PM CDT Office Visit [address] [address] Jelnea Ron PA Pain (Upper left sided pain for two weeks-had to stop wearing under wire bras as they were too painful) 02/03/2024 Travel 02/03/2024 Nurse Triage [address] [address] Jelena Ron PA Chest Pain 01/30/[address] [address] Jelena Ron PA Refill Request (Oxybutynin) 01/24/2024 3:10 PM CDT Office Visit [address] [address] Jelena Ron PA Ear Problem (Check ears-getting new hearing aids on 01-30) 01/24/2024 Travel from Last 3 Months Immunizations Name Administration Dates Next Due COVID-19 vaccine (Pfizer-Bio NTech 30mcg/0.3mL) 12YO+ BIVALENT PF, MDV 06/14/2022 COVID-19 vaccine (Pfizer-Bio NTech 30mcg/0.3mL) PF, MDV 12/23/2020,12/02/2020 Influenza Virus, Unspecified 07/15/2014,07/10/20 10 Influenza, High-dose Inactivated 09/14/2016,11/0 02/2015 Influenza, IIV3 (Age >=3 years) 06/26/20 12,10/15/2008,07/17/2007,2001 Influenza, Inactivated AIIV4 (Age 65+ Years) Preserv Free 09/07/2023,08/09/2022,10/07/2021,2019 Influenza, Inactivated IIV3 (Age 65+ Years) Preserv Free 09/27/2019,07/12/2017 Pneumococcal Poly,23-Valent (Pneumovax) 06/01/2018,04/05/2005,07/17/2002 Pneumococcal conj 13-Valent (Prevnar 13) 01/20/2015 Tdap 08/01/2015,04/05/2015,04/05/2005 Family History Relation Name Status Comments Son (Age 51) suicide Social History Tobacco Use Types Packs/Day Years Used Date Smoking Tobacco: Never Smokeless Tobacco: Never Tobacco Cessation:Counseling Given: Yes Alcohol Use Standard Drinks/Week Comments No 0 (1 standard drink = 0.6 oz pur e alcohol) rarely PHQ-2 Answer Date Recorded PHQ-2 TOTAL SCORE 0 08/12/2023 Social Connections Answer Date Recorded Frequency of Communication with Friends and Fami ly 0 09/06/2023 Financial Resource Strain Answer Date R ecorded Difficulty of Paying Living Expenses 3 09/06/2023 Difficulty of Paying Living Expenses Not on file 09/06/2023 Food Insecurity Answer Date Recorded Worried About Running Out of Food in the Last Ye ar 1 09/06/2023 Transportation Needs Answer Date Record ed Lack of Transportation (Medical) 1 09/06/2023 Housing Stability Answer Date Recorded Unable to Pay for Housing in the Last Year 1 09/06/2023 Sex and Gender Information Value Date Recorded Sex Assigned at Not on file Gender Identity Not on file Sexual Orientation Not on file Obstetrics History Last Filed Vital Signs Vital Sign Reading Time Taken Comments Blood Pressure 158/88 04/06/2024 6:37 PM CDT Pulse 70 04/06/2024 6:37 PM CDT Temperature 37.7 ??C (99.8 ??F) 04/06/2024 6:37 PM CD T Respiratory Rate 20 04/06/2024 6:37 PM CDT Oxygen Saturation 94% 04/06/2024 6:37 PM CDT Inhaled Oxygen Concentration - - Weight 60.3 kg (133 lb) 04/06/2024 6:37 PM CDT Height 155 cm (5' 1.02) 11/14/2023 2:36 PM CUSTOMER TRAINER Body Mass Index 25.11 11/14/2023 2:36 PM CUSTOMER TRAINER Plan of Treatment Health Maintenance Due Date Last Done Comments Zoster (shingles) series for age 50+ (1 of 2) 1990 COVID-19 vaccine series ( season) 2023 06/14/2022, 09/04/2021, 12/23/2020, Additional history exists Influenza for age 65+ 05/27/2024 09/07/2023 , 08/09/2022, 10/07/2021, Additional history exists Medicare Wellness for age 65+ 08/12/2024, 08/09/2022, 01/29/2021 Depression screening for age 12+ 08/15/2024 08/15/2023, 08/12/2023, 08/11/2022, Additional history exists BMI (ht and wt on same day) for age 18+ 11/14/2024 11/14/2023, 08/12/2023, 08/09/2022, Additional history exists Tetanus booster 08/01/2025 08/01/2015, 03/26, 04/05/2005 Tdap Completed 08/01/2015, 03/26, 04/05/2005 Pneumococcal series for age 65+ Completed 06/01/2018, 01/20/2015, 04/05/2005, Additional history exists DEXA/DXA scan for age 65+ Completed 02/19/2021 Procedures Procedure Name Priority Date/Time Associated Diagnosis Comments FERRITIN Add On 04/06/2024 2:40 PM CDT Anemia of unknown etiology IRON PLUS IRON BINDING CAP Add On 04/06/2024 2:40 PM CDT Anemia of unknown etiology CBC WITH AUTO DIFFERENTIAL Routine 04/06/2024 2:40 PM CDT Upper abdominal pain LIPASE Routine 04/06/2024 2:40 PM CDT Upper abdominal pain C-REACTIVE PROTEIN Routine 04/06/2024 2: 40 PM CDT Upper abdominal pain COMP METABOLIC PANEL Routine 04/06/2024 2:40 PM CDT Upper abdominal pain CBC WITH AUTO DIFFERENTIAL Routine 04/06/2024 2:40 PM CDT Upper abdominal pain XR RIBS LEFT AND PA CHEST MINIMUM 3 VIEWS Routine 02/03/2024 2:08 PM CDT Rib pain on left side XR DXA BONE DENSITY 2 SITES AXIAL Routine 02/19/2021 3:02 PM CDT Menopause Osteopenia, unspecified location from Last 3 Months or Most Recently Relevant to Health Maintenance Results * (ABNORMAL) CBC WITH AUTO DIFFERENTIAL (04/06/2024 2:40 PM CDT) [facility] WHITE BLOOD COUNT 7.1 4.5 - 11.0 thou/cu mm 04/06/2024 2:47 PM CDT [facility] RED BLOOD COUNT 3.40(L) 4.00 - 5.20 mil/cu mm 04/06/2024 2:47 PM CDT [facility] HEMOGLOBIN 10.9(L) 12.0 - 16.0 g/dL 04/06/2024 2:47 PM CDT [facility] HEMATOCRIT 31.9(L) 33.0 - 51.0 % 04/06/2024 2:47 PM CDT [facility] MCV 94 80 - 100 fL 04/06/2024 2:47 PM CDT [facility] MCH 32.1 26.0 - 34.0 pg 04/06/2024 2:47 PM CDT [facility] MCHC 34.2 32.0 - 36.0 g/dL 04/06/2024 2:47 PM CDT [facility] RDW 12.8 11.5 - 15.5 % 04/06/2024 2:47 PM CDT [facility] PLATELET COUNT 214 140 - 440 thou/cu mm 04/06/2024 2:47 PM CDT [facility] MPV 10.3 6.5 - 11.0 fL 04/06/2024 2:47 PM CDT [facility] % NEUT 75.3 % 04/06/2024 2:47 PM CDT [facility] % LYMPH 10.2 % 04/06/2024 2:47 PM CDT [facility] % MONO 9.1 % 04/06/2024 2:47 PM CDT [facility] % EOS 4.7 % 04/06/2024 2:47 PM CDT [facility] % BASO 0.7 % 04/06/2024 2:47 PM CDT [facility] ABSOLUTE NEUTROPHILS 5.3 1.7 - 7.0 thou/cu mm 04/06/2024 2:47 PM CDT [facility] ABSOLUTE LYMPHOCYTES 0.7(L) 0.9 - 2.9 thou/cu mm 04/06/2024 2:47 PM CDT [facility] ABSOLUTE MONOCYTES 0.6 <0.9 thou/cu mm 04/06/2024 2:47 PM CDT [facility] ABSOLUTE EOSINOPHILS 0.3 <0.5 thou/cu mm 04/06/2024 2:47 PM CDT [facility] ABSOLUTE BASOPHILS 0.1 <0.3 thou/cu mm 04/06/2024 2:47 PM CDT [facility] Blood BLOOD SPECIMEN / Unknown Venipuncture / Unknown 04/06/2024 2:40 PM CDT 04/06/2024 2:42 PM CDT Jelena HAGER HEMATOLOGY [facility] [address] [place] [address], [place] [phone] * IRON PLUS IRON BINDING CAP (04/06/2024 2:40 PM CDT) IRON 69 37 - 145 ug/dL 04/09/2024 1:22 PM CDT [facility] UIBC (UNSATURATED) 240 112 - 347 ug/dL 04/09/2024 1:22 PM CDT [facility] IRON BINDING CAPACITY 309 250 - 400 ug/dL 04/09/2024 1:22 PM CDT [facility] IRON,% SATURATION 22 14 - 50 % 04/09/2024 1:22 PM CDT [facility] Blood BLOOD SPECIMEN / Unknown Venipuncture / Unknown 04/06/2024 2:40 PM CDT 04/06/2024 2:42 PM CDT Jelena HAGER CHEMISTRY [facility] [address] [place] [address], * C-REACTIVE PROTEIN (04/06/2024 2:40 PM CDT) C-REACTIVE PROTEIN <0.3 <0.5 mg/dL 04/06/2024 11:21 PM CDT [facility] Blood BLOOD SPECIMEN / Unknown Venipuncture / Unknown 04/06/2024 2:40 PM CDT 04/06/2024 2:42 PM CDT Jelena HAGER CHEMISTRY [facility] [address] [place] [address], * LIPASE (04/06/2024 2:40 PM CDT) LIPASE 28.1 13.0 - 60.0 IU/L 04/06/2024 11:40 PM CDT [facility] Blood BLOOD SPECIMEN / Unknown Venipuncture / Unknown 04/06/2024 2:40 PM CDT 04/06/2024 2:42 PM CDT Jelena [facility]AGER [facility] [address] [place] [address], * FERRITIN (04/06/2024 2:40 PM CDT) FERRITIN 55.0 15.0 - 150.0 ng/mL 04/09/2024 1:13 PM CDT [facility] Blood BLOOD SPECIMEN / Unknown Venipuncture / Unknown 04/06/2024 2:40 PM CDT 04/06/2024 2:42 PM CDT Jelena HAGER CHEMISTRY Performing Organization Address [facility]/ZIP Co de Phone Number [facility] [address] [place] [address], * (ABNORMAL) COMP METABOLIC PANEL (04/06/2024 2:40 PM CDT) Pathologist [facility] SODIUM 137 136 - 145 mmol/L 04/06/2024 11:21 PM CDT [facility] POTASSIUM 4.4 3.5 - 5.1 mmol/L 04/06/2024 11:21 PM CDT [facility] CHLORIDE 104 98 - 107 mmol/L 04/06/2024 11:21 PM CDT [facility] CO2,TOTAL 25 22 - 29 mmol/L 04/06/2024 11:21 PM CDT [facility] ANION GAP 8 5 - 18 04/06/2024 11:21 PM CDT [facility] GLUCOSE 166(H) 70 - 99 mg/dL 04/06/2024 11:21 PM CDT [facility] CALCIUM 10.4(H) 8.8 - 10.2 mg/dL 04/06/2024 11:21 PM CDT [facility] BUN 25(H) 8 - 23 mg/dL 04/06/2024 11:21 PM CDT [facility] CREATININE 0.91(H) 0.50 - 0.90 mg/dL 04/06/2024 11:21 PM CDT [facility] BUN/CREAT RATIO 27(H) 10 - 20 11:21 PM CDT [facility] eGFR 63(L) >90 mL/min/1.7 3m2 04/06/2024 11:21 PM CDT [facility] Comment:As of 2021, eG FR is calculated by the CKD-EPI creatinine equation without race adjustment. ??eGFR can be influenced by muscle mass, exercise, and diet. ??The reported eGFR is an estimation only and is only applicable if the renal function is stable. ALBUMIN 4.2 4.0 - 4.9 g/dL 04/06/2024 11:21 PM CDT [facility] PROTEIN,TOTAL 6.8 6.0 - 8.0 g/dL 04/06/2024 11:21 PM CDT [facility] BILIRUBIN,TOTAL 0.5 0.0 - 1.2 mg/dL 04/06/2024 11:21 PM CDT [facility] ALK PHOSPHATASE 100 35 - 104 IU/L 04/06/2024 11:21 PM CDT [facility] ALT (SGPT) 29 10 - 35 IU/L 04/06/2024 11:21 PM CDT [facility] AST (SGOT) 33 10 - 35 IU/L 04/06/2024 11:21 PM CDT [facility] Blood BLOOD SPECIMEN / Unknown Venipuncture / Unknown 04/06/2024 2:40 PM CDT 04/06/2024 2:42 PM CDT Jelena HAGER CHEMISTRY [facility] [address] [place] [address], * XR RIBS LEFT AND PA CHEST MINIMUM 3 VIEWS (02/03/2024 2:08 PM CDT) Anatomical Region Laterality Modality RIBS, RIBS L, CHEST Computed Rad iography 02/06/2024 6:47 AM CDT Impressions 02/06/2024 6:47 AM CDT No acute cardiopulmonary disease. Intact left-sided ribs. Dictated by Satish Goodman MD @ 02/06/2024 6:47:24 AM (Electronically Signed) Narrative 02/06/2024 6:47 AM CDT For Patients: ??As a result of the Cures Act, medical imaging exams and procedure reports are released immediately into your electronic medical record. ??You may view this report before your referring provider. ??If you have questions, please contact your health care provider. INDICATION: Rib pain on left side COMPARISON: none TECHNIQUE: PA chest and left ribs. FINDINGS: Mild areas of scarring are present bilaterally. There is no evidence of pulmonary contusion, pneumothorax or pleural effusion. The cardiac silhouette is prominent and there is tortuosity of the aorta along with vascular calcifications. Oblique detail views of the ribs demonstrate no evidence of fracture or intrinsic bone lesion. ??There is no evidence of pleural hematoma. Procedure Note Satish Goodman MD - 02/06/2024 For Patients: As a result of the Cures Act, medical imagingexams and procedure reports are released immediately into your electronicmedical record. You may view this report before your referring provider.If you have questions, please contact your health care provider. INDICATION: Rib pain on left side COMPARISON: none TECHNIQUE: PA chest and left ribs. FINDINGS: Mild areas of scarring are present bilaterally. There is no evidence ofpulmonary contusion, pneumothorax or pleural effusion. The cardiacsilhouette is prominent and there is tortuosity of the aorta along withvascular calcifications. Oblique detail views of the ribs demonstrate noevidence of fracture or intrinsic bone lesion. There is no evidence ofpleural hematoma. IMPRESSION: No acute cardiopulmonary disease. Intact left-sided ribs. Dictated by Satish Goodman MD @ 02/06/2024 6:47:24 AM (Electronically Signed) Jelena HAGER GENERAL IMAGING * (ABNORMAL) XR DXA BONE DENSITY 2 SITES AXIAL [99223.1] (02/19/2021 3:02 PM CDT) Anatomical Region Laterality Modality Spine, HIPS, HIPL, HIPR Other Impressions 02/24/2021 4:34 PM CDT Osteoporosis. RECOMMENDATIONS: The National Osteoporosis Foundation recommends pharmacologic treatment for patients with T-scores of -2.5 or less, patients with prior history of fragility fractures, or patients with 10-year probability of greater than 3% at hips or greater than 20% of suffering major osteoporotic fractures. Recommend continued optimization of calcium and vitamin D intake through dietary means and/or supplementation and regular exercise. Consider pharmacologic therapy for osteoporosis. Follow-up bone density reading in 2 years if therapy initiated to assess therapeutic efficacy. Halina Arriaga PA-C [facility] 02/24/2021 Narrative 02/24/2021 4:34 PM CDT XR DXA Bone Mineral Density (BMD) EXAM LOCATION: [address] [address] PATIENT NAME: Lynn Martins DATE OF : 1940 EXAM DATE: 02/19/2021 REQUESTING PROVIDER: Mona Al MD GENDER AT : female HEIGHT: 5' 1.5 (01/29/2021) WEIGHT: ??133 lb 9.6 oz (01/29/2021) MENOPAUSAL STATUS: Postmenopausal RACE/ETHNICITY: White RISK FACTORS: White Race CURRENT MEDICATION FOR BONE LOSS: NONE INDICATION: Screening for osteoporosis COMPARISON DATE(S): none DXA scans are compared to prior studies for a patient only when the two (or more) studies were performed on the same scanner. It is not possible to compare data generated on one scanner to data from another because there are not standards in DXA equipment. This applies even if the two scanners are made by the same filter cleaner. PROCEDURE: Dual-energy x-ray absorptiometry performed with routine technique. Reporting is completed in the form of a T-score. The T-score represents the standard deviation from peak bone mass based on young healthy adult. A Z-score is used for diagnosis in premenopausal women, and for men under the age of 50. FINDINGS: RESULT LUMBAR SPINE L1 - L4 BMD: 1.099 g/cm2 T-Score: - 0.8 Z-Score: + 1.2 RESULT FEMORAL NECK Right Total Femoral Neck BMD: 0.658 g/cm2 T-Score: - 2.7 Z-Score: - 0.5 RESULT TOTAL HIP Bilateral Total Hip BMD: 0676 g/cm2 T-Score: - 2.6 Z-Score: - 0.5 WHO criteria: Normal: T-score at or above -1 SD Osteopenia: T-score between -1.1 and -2.4 SD Osteoporosis: T-score at or below -2.5 SD Mona Al MD DEXA from Last 3 Months or Most Recently Relevant to Health Maintenance Advance Directives * Full Code (Latest Code Status on File) Date Activated Date Inactivated Comments 09/05/2023 10:42 PM 09/09/2023 6:59 PM Question Answer Comments Code Status Discussion: Reviewed Preferences Care Teams Engine Lathe Set Up Operator Relationship Specialty Start Date End Date Jelena Ron PA [address] [place] [address] PCP - General Physician Truck Crane Operator 10/20/23 Mona Max, MOVIE EDITOR Student [address] [place] [address] Inventory Control/Shipping Receiving Registered Nurse 12/16/23
[2024-04-15 21:33] VITALS: TEMP 36.7
[2024-04-15] MEDS: ACETAMINOPHEN 500 MG TABLET 1000 MG PO (21:33)
[2024-04-15 21:34] VITALS: TEMP 36.7
[2024-04-15] MEDS: IBUPROFEN 200 MG TABLET 600 MG PO (21:34)
== END 2024-04-15 21:37 | disposition home or self-care (01) ==
PROVIDERS: Emergency Provider Family Medicine; PCP Physician Assistant
DX: B02.9 Zoster without complications (principal); G89.4 Chronic pain syndrome
CPT/HCPCS: 99283; A9270

== ENCOUNTER 2025-05-19 13:20 | Inpatient (IN) | payer MEDICARE, SELFPAY ==
--- OUTSIDE RECORDS SUMMARY | 2025-05-19 13:23 | XMS_ITS | Clinical Summary ---
Author Organization [employer] [facility] Address [address] [place] [id number] Care Team Providers Care Cat Scan Technologist Name Role Phone Jelena Ron Primary Care Provider [phone] Mona Max NP Unavailable [phone] Allergies No known active allergies Medications OneTouch Delica Plus Lancet 30 gauge miscIndications :Type 2 diabetes mellitus without complication, with long-term current use of insulin (HC) TEST DIRECTED FOUR TIMES DAILY 400 Each 3 023 Active acetaminophen (TYLENOL EXTRA STRGTH) 500 mg tablet Take 500 mg by mouth every 4 hours if needed. Take 1-2 tablets every 4 hours PRN pain max dosing 4000mg in 24 hours. 024 Active amLODIPine (NORVASC) 10 mg tabletIndicatio ns:Hypertension , unspecified type Take 1 Tablet (10 mg) by mouth once daily. 90 Tablet 3 024 Active atorvastatin (LIPITOR) 10 mg tabletIndicatio ns:3rd cranial nerve palsy, left Take 1 Tablet (10 mg) by mouth at bedtime. 90 Tablet 3 024 Active cholecalciferol (Vitamin D) 1,000 unit tabletIndicatio ns:Vitamin D deficiency Take 1 Tablet (1,000 units) by mouth once daily. 90 Tablet 3 024 Active hydrALAZINE (APRESOLINE TABLET) 50 mg tabletIndicatio ns:Hypertension , unspecified type Take 2 Tablets (100 mg) by mouth three times daily. 180 Tablet 11 Active hydroCHLOROthia zide 25 mg tabletIndicatio ns:Hypertension , unspecified type Take 1 Tablet (25 mg) by mouth once daily. 90 Tablet 3 024 Active hydrOXYzine HCL (ATARAX) 25 mg tabletIndicatio ns:Primary insomnia Take 1 Tablet (25 mg) by mouth at bedtime. 90 Tablet 3 024 Active labetaloL (TRANDATE) 200 mg tabletIndicatio ns:Hypertension , unspecified type Take 1 Tablet (200 mg) by mouth two times daily. 180 Tablet 3 Active valsartan (DIOVAN) 160 mg tabletIndicatio ns:Hypertension , unspecified type Take 1 Tablet (160 mg) by mouth two times daily. 180 Tablet 3 Active pen needle (BD Suly 2nd Gen Pen Needle) 32 gauge x 5/32 (disposable insulin pen needle)Indicati ons:Type II diabetes mellitus with complication (HC),Type 2 diabetes mellitus without complication, with long-term current use of insulin (HC) Use to administer insulin 4 times daily. Remove the 2 covers on the insulin pen needle before administering insulin dose.As directed. Remove the 2 covers on the insulin pen needle before administering insulin dose. 400 Each 3 Active gabapentin (NEURONTIN) 100 mg capsule Take 100 mg by mouth two times daily. Active sensor (Open Utility G7 Sensor) for continuous blood glucose monitor (CGM) To be used to read blood sugars, follow agricultural produce packer directions. Active aspirin enteric coated 81 mg tabletIndicatio ns:3rd cranial nerve palsy, left Take 1 Tablet (81 mg) by mouth once daily with a meal. 90 Tablet 3 Active gabapentin (NEURONTIN) 100 mg capsuleIndicati ons:Post herpetic neuralgia Take 1 Capsule (100 mg) by mouth two times daily. 180 Capsule 3 Active insulin aspart (U-100) (NOVOLOG FLEXPEN) 100 unit/mL (3 mL) penIndications: Type II diabetes mellitus with complication (HC) 5 units before breakfast and 6-7 units before lunch and 5 units before supper meals 60 mL 1 025 Active insulin glargine (U-100) (Lantus Solostar U-100 Insulin) 100 unit/mL (3 mL) penIndications: Type II diabetes mellitus with complication (HC) Inject 12 units subcutaneous at bedtime. 15 mL 2 025 Active metFORMIN (GLUCOPHAGE XR) 500 mg Extended-Releas e tabletIndicatio ns:Type II diabetes mellitus with complication (HC) Take 4 Tablets (2,000 mg) by mouth once daily with evening meal. 360 Tablet 1 025 Active ferrous sulfate 325 mg delayed release tabletIndicatio ns:Iron deficiency anemia, unspecified iron deficiency anemia type Take 1 Tablet (325 mg) by mouth once daily with a meal. 90 Tablet 3 025 Active aspirin (ECOTRIN) 81 mg enteric coated tabletIndicatio ns:3rd cranial nerve palsy, left Take 1 Tablet (81 mg) by mouth once daily with a meal. 023 2024 Discontinued(R eorder (E-cancel not sent)) nystatin (MYCOSTATIN) 100,000 unit/gram topical creamIndication s:Intertrigo Apply topically to affected area(s) two times daily. 30 g 023 2024 Discontinued(* Med complete/Regim en complete/Level of care change) FreeStyle Smith 3 Sensor for continuous blood glucose monitor (CGM)Indication s:Type II diabetes mellitus with complication (HC) To be used to read blood sugars, follow agricultural produce packer directions. 6 Each 3 024 2024 Discontinued(* Med complete/Regim en complete/Level of care change) FreeStyle Smith 3 [place] for continuous blood glucose monitor (CGM)Indication s:Type II diabetes mellitus with complication (HC) To be used to read blood sugars follow agricultural produce packer directions. 1 Each 024 2024 Discontinued(* Med complete/Regim en complete/Level of care change) famotidine (PEPCID) 20 mg tabletIndicatio ns:Acute gastritis without hemorrhage, unspecified gastritis type Take 1 Tablet (20 mg) by mouth two times daily. 180 Tablet 3 024 2024 Discontinued(* Med complete/Regim en complete/Level of care change) insulin aspart, U-100, (NOVOLOG FLEXPEN) 100 unit/mL (3 mL) penIndications: Type II diabetes mellitus with complication (HC) 5 units before breakfast and 6-7 units before lunch and 5 units before supper meals 60 mL 1 024 2024 Discontinued(R eorder (E-cancel not sent)) insulin glargine, U-100, (Lantus Solostar U-100 Insulin) 100 unit/mL (3 mL) penIndications: Type II diabetes mellitus with complication (HC) Inject 12 units subcutaneous at bedtime. 15 mL 2 024 2024 Discontinued(R eorder (E-cancel not sent)) oxybutynin (DITROPAN) 5 mg tabletIndicatio ns:OAB (overactive bladder) Take 0.5 Tablets (2.5 mg) by mouth once daily in the evening. 45 Tablet 3 024 2024 Discontinued(* Med complete/Regim en complete/Level of care change) sertraline (ZOLOFT) 50 mg tabletIndicatio ns:Adjustment disorder with depressed mood Take 1 Tablet (50 mg) by mouth once daily in the morning. 90 Tablet 3 024 2024 Discontinued(* Med complete/Regim en complete/Level of care change) fluticasone (50 mcg per actuation) nasal solution (FLONASE)Indica tions:Viral sinusitis Inhale 2 Sprays in both nostrils once daily. 16 g 025 2024 Discontinued(* Med complete/Regim en complete/Level of care change) gabapentin 300 mg capsuleIndicati ons:Post herpetic neuralgia TAKE 1 CAPSULE BY MOUTH THREE TIMES A DAY 270 Capsule 025 2024 Discontinued metFORMIN 500 mg Extended-Releas e tabletIndicatio ns:Type II diabetes mellitus with complication (HC) TAKE 4 TABLETS BY MOUTH ONCE DAILY WITH EVENING MEAL. 360 Tablet 025 2024 Discontinued(R eorder (E-cancel not sent)) gabapentin (NEURONTIN) 300 mg capsuleIndicati ons:Post herpetic neuralgia TAKE 1 CAPSULE BY MOUTH THREE TIMES A DAY 270 Capsule 025 2024 Discontinued(* Medication adjustment) Active Problems Problem Noted Date Diagnosed Date Post herpetic neuralgia 06/25/2024 Potential for cognitive impairment 09/06/2023 Maxillary sinusitis 09/06/2023 3rd cranial nerve palsy, left 09/05/2023 Basal cell carcinoma (BCC) of ala nasi 2 Osteoporosis 01/29/2021 Overview (03/05/2021): DEXA scan 01/2021 CKD (chronic kidney disease) stage 3, GFR 30-59 ml/min 10/02/2019 Overview (10/02/2019): Initially decreased 05/2019 Problems with hearing, bilateral 09/27/2017 HTN (hypertension) 09/14/2016 Hyperlipidemia associated with type 2 diabetes m ellitus 09/14/2016 Type II diabetes mellitus with complication 08/27 Overview (07/12/2017): Diagnosed about age 60 Resolved Problems Problem Noted Date Diagnosed Date Resolved Date Hypertensive urgency 09/05/2023 024 Impacted cerumen of left ear 09/27/2017 11/16/2023 Encounters Date Type Department Care Team Description 05/13/2025 12:30 PM CDT Office Visit [facility] [address] [place] [address] Jenna Mejia AuD Hearing Aid (ANGELO fitting) 05/13/2025 Travel 05/03/2025 Telephone [facility] [address] [place] [address] Jelena Ron PA Medication Management (Ibuprofen /) 05/03/2025 Telephone [facility] [address] [place] [address] Jelena Ron PA Results 05/02/2025 3:00 PM CDT Ancillary Procedure [facility] [address] [place] [address] 05/02/2025 1:10 PM CDT Office Visit [facility] [address] [place] [address] Jelena Ron PA Medication Management; Hand Pain/problem (Wakes up in the night and can't feel her hands but they hurt-gets up to walk around and it goes away-also was moving a table a few weeks ago and sprained both of her wrists-swollen) 05/02/2025 Travel 04/25/2025 12:30 PM CDT Office Visit [facility] [address] [place] [address] Jenna Mejia AuD Hearing Aid (ANGELO consult) 04/25/[address] [phone] Jenna Mejia AuD Hearing Aid (ANGELO medical clearance) 04/25/2025 Travel 04/20/2025 Refill [facility] [address] [place] [address] Jelena Ron PA Refill Request (Gabapentin) 04/12/2025 2:00 PM CDT Office Visit [address] [phone] Ashlee Car PA Recheck (sudden hearing loss) 04/12/2025 1:30 PM CDT Office Visit [facility] [address] [place] [phone] Moraima Pan, Rito Ear Problem 04/12/2025 Travel 03/18/2025 Refill [facility] [address] [place] [address] Jelena Ron PA Refill Request (Metformin) 03/12/2025 10:30 AM CDT Office Visit [address] [phone] Ashlee Car PA Consult (SNHL) 03/12/2025 Orders Only [address] [address] Ashlee Car PA <No scans attached> 03/11/2025 9:30 AM CDT Office Visit [facility] [address] [place] [address] Jenna Mejia AuD Hearing Problem (Urgent audio) 03/11/2025 Telephone [facility] [address] [place] [phone] Jenna Mejia AuD Appointment (Sudden SNHL) 03/11/2025 Travel 03/08/2025 3:35 PM CDT Office Visit [facility] [address] [address] Ayse Toledo DO Ear Problem (Muffled, [place] DEE-NI') 03/08/2025 Travel from Last 3 Months Immunizations Immunization Administration Dates Next Due COVID-19 vaccine (Pfizer-Bio NTech 30mcg/0.3mL) 12YO+ BIVALENT PF, MDV 06/14/2022 COVID-19 vaccine (Pfizer-Bio NTech 30mcg/0.3mL) PF, MDV 12/23/2020,12/02/2020 Influenza Virus, Unspecified 07/15/2014,07/10/20 10 Influenza, High-dose Inactivated 09/14/2016,02/2015 Influenza, IIV3 (Age >=3 years) 06/26/20 12,10/15/2008,07/17/2007,2001 Influenza, Inactivated AIIV4 (Age 65+ Years) Preserv Free 09/07/2023,08/09/2022,10/07/2021,2019 Influenza, Inactivated IIV3 (Age 65+ Years) Preserv Free 08/16/2024,09/27/2019,07/12/2017 Pneumococcal Poly,23-Valent (Pneumovax) 06/01/2018,04/05/2005,07/17/2002 Pneumococcal conj 13-Valent (Prevnar 13) 01/20/2015 Tdap 08/01/2015,04/05/2015,04/05/2005 Zoster (Shingrix-RZV, recombinant) 02/06/2024 Family History Relation Name Status Comments Son (Age 51) suicide Social History Tobacco Use Types Packs/Day Years Used Date Smoking Tobacco: Never Smokeless Tobacco: Never Tobacco Cessation:Counseling Given: Yes Alcohol Use Standard Drinks/Week Comments No 0 (1 standard drink = 0.6 oz pur e alcohol) rarely PHQ-2 Answer Date Recorded PHQ-2 TOTAL SCORE 0 08/16/2024 Social Connections Answer Date Recorded Do you often feel lonely or isolated from those around you? 0 10/24/2024 Financial Resource Strain Answer Date R ecorded Difficulty of Paying Living Expenses 3 10/24/2024 Difficulty of Paying Living Expenses Not on file 10/24/2024 Food Insecurity Answer Date Recorded Do you worry your food will run out before you are able to buy more? 1 10/24/2024 Transportation Needs Answer Date Record ed Does lack of transportation keep you from medica l appointments? 1 10/24/2024 Does lack of transportation keep you from work, meetings or getting things that you need? 1 10/24/2024 Housing Stability Answer Date Recorded What is your housing situation today? 1 10/24/2024 Utilities Answer Date Recorded Do you have trouble paying f or utilities (for example, heat, electricity, water, phone)? 1 10/24/2024 Comments No Sex and Gender Information Value Date Recorded Sex Assigned at Not on file Legal Sex Female 5:28 AM [employer] Gender Identity Not on file Sexual Orientation Not on file Obstetrics History Last Filed Vital Signs Vital Sign Reading Time Taken Comments Blood Pressure 144/64 05/02/2025 2:01 PM CDT Pulse 61 05/02/2025 1:23 PM CDT Temperature 36.8 C (98.2 F) 10/24/2024 2:22 PM [employer] Respiratory Rate 20 04/06/2024 6:37 PM CDT Oxygen Saturation 95% 05/02/2025 1:23 PM CDT Inhaled Oxygen Concentration - - Weight 59 kg (130 lb) 05/02/2025 1:23 PM CDT Height 153 cm (5' 0.25) 08/16/2024 1:04 PM [employer] Body Mass Index 25.18 08/16/2024 1:04 PM [employer] Plan of Treatment Upcoming Encounters Date Type Department Care Team (Late st Contact Info) Description 06/03/2025 12:30 PM CDT Office Visit [address] [place] [address] Jackie, Jenna, AuD [address] [place] [address] 06/14/2025 2:15 PM CDT Orders Only [facility] [address] [place] [address] Lab, [place] [facility] Maintenance Due Date Last Done Comments RSV vaccine for adults or (1 - 1-dose 75+ series) 2015 Zoster (shingles) series for age 50+ (2 of 2) 04/02/2024 02/06/2024 COVID-19 vaccine series (2023- season) 2024 06/14/2022, 09/04/2021, 12/23/2020, Additional history exists Influenza Vaccine (#1) 2025 , 09/07/2023, 08/09/2022, Additional history exists Tetanus booster 08/01/2025 08/01/2015, 03/26, 04/05/2005 BMI (ht and wt on same day) for age 18+ 08/16/2025 08/16/2024, 11/14/2023, 08/12/2023, Additional history exists Medicare Wellness for age 65+ 08/17/2025 08/16/2024, 08/12/2023, 08/09/2022, Additional history exists Depression screening for age 12+ 08/20/2025 08/20/2024, 08/16/2024, 08/15/2023, Additional history exists Pneumococcal series for age 50+ Completed 06/01/2018, 01/20/2015, 04/05/2005, Additional history exists DEXA/DXA scan for age 65+ Completed 02/19/2021 Hepatitis B series for 19+ Aged Out N o longer eligible based on patient's age to complete this topic Procedures Procedure Name Priority Date/Time Associated Diagnosis Comments HEMOGLOBIN A1C MONITORING (POCT) Routine 05/02/2025 2:33 PM CDT Type II diabetes mellitus with complication (HC) XR HAND 3 VIEWS BILATERAL Routine 05/02/2025 2:32 PM CDT Injury of right hand, initial encounter CBC WITH AUTO DIFFERENTIAL Routine 05/02/2025 2:32 PM CDT Anemia of unknown etiology URINE ALBUMIN TO CREATININE RATIO, RANDOM Routine 05/02/2025 2:31 PM CDT Type II diabetes mellitus with complication (HC) Stage 3a chronic kidney disease (HC) HEARING AID MEDICAL CLEARANCE Routine 04/25/2025 3:48 PM CDT Mixed conductive and sensorineural hearing loss of left ear with restricted hearing of right ear Sensorineural hearing loss (SNHL) of right ear with restricted hearing of left ear XR DXA BONE DENSITY 2 SITES AXIAL Routine 02/19/2021 3:02 PM CDT Menopause Osteopenia, unspecified location from Last 3 Months or Most Recently Relevant to Health Maintenance Results * (ABNORMAL) HEMOGLOBIN A1C MONITORING (POCT) (05/02/2025 2:33 PM CDT) POC HEMOGLOBIN A1C 6.0(H) <6.0 % OF TOTAL HGB [facility] Comment: Any point of care results exhibiting inconsistency with the patient's clinical status should be repeated using a different testing method. Blood BLOOD SPECIMEN / Unknown 05/02/2025 2:33 PM CDT 05/02/2025 2:34 PM CDT us Jelena HAGER CHEMISTRY Final Resu lt [facility] [address] [place] [address], [facility] [address] [place] [phone] * XR HAND 3 VIEWS BILATERAL (05/02/2025 2:32 PM CDT) Anatomical Region Laterality Modality HAND L, HAND R, HANDS Computed R adiography 05/02/2025 3:18 PM CDT Narrative 05/02/2025 3:18 PM CDT For Patients: As a result of the Cures Act, medical imaging exams and procedure reports are released immediately into your electronic medical record. You may view this report before your referring provider. If you have questions, please contact your health care provider. Indication: Injury, pain Technique: Three views each hand, 6 views total Comparison: None Findings: Narrowing and spurring at the 1st carpometacarpal joints bilaterally with subchondral degenerative cystic change. No erosions. Osteopenia. Multifocal narrowing and spurring at the interphalangeal joints bilaterally. Relative sparing of the metacarpophalangeal joints. Impression: Multifocal degenerative joint disease bilaterally particularly at the 1st carpometacarpal joints. Dictated by Satish Goodman MD @ 05/02/2025 3:18:59 PM (Electronically Signed) Procedure Note Satish Goodman MD - 05/02/2025 For Patients: As a result of the Cures Act, medical imagingexams and procedure reports are released immediately into your electronicmedical record. You may view this report before your referring provider.If you have questions, please contact your health care provider. Indication: Injury, pain Technique: Three views each hand, 6 views total Comparison: None Findings: Narrowing and spurring at the 1st carpometacarpal joints bilaterally withsubchondral degenerative cystic change. No erosions. Osteopenia.Multifocal narrowing and spurring at the interphalangeal jointsbilaterally. Relative sparing of the metacarpophalangeal joints. Impression: Multifocal degenerative joint disease bilaterally particularly at the 1stcarpometacarpal joints. Dictated by Satish Goodman MD @ 05/02/2025 3:18:59 PM (Electronically Signed) us Jelena HAGER GENERAL IMAGING Final Resu lt * (ABNORMAL) CBC AND DIFFERENTIAL (05/02/2025 2:32 PM CDT) WHITE BLOOD CELL COUNT 8.6 3.8 - 10.8 Thousand/u L [facility] RED BLOOD CELL COUNT 3.52(L) 3.80 - 5.10 Million/uL [facility] HEMOGLOBIN 10.9(L) 11.7 - 15.5 g/dL [facility] HEMATOCRIT 33.6(L) 35.0 - 45.0 % [facility] MCV 95.5 80.0 - 100.0 fL [facility] MCH 31.0 27.0 - 33.0 pg [facility] MCHC 32.4 32.0 - 36.0 g/dL [facility] Comment: For adults, a slight decrease in the calculated MCHC value (in the range of 30 to 32 g/dL) is most likely not clinically significant; however, it should be interpreted with caution in correlation with other red cell parameters and the patient's clinical condition. RDW 12.5 11.0 - 15.0 % [facility] PLATELET COUNT 254 140 - 400 Thousand/u L [facility] MPV 10.6 7.5 - 12.5 fL [facility] ABSOLUTE NEUTROPHILS 6,717 1,500 - 7,800 cells/uL [facility] ABSOLUTE LYMPHOCYTES 1,041 850 - 3,900 cells/uL [facility] ABSOLUTE MONOCYTES 593 200 - 950 cells/uL [facility] ABSOLUTE EOSINOPHILS 198 15 - 500 cells/uL [facility] ABSOLUTE BASOPHILS 52 0 - 200 cells/uL [facility] NEUTROPHILS 78.1 % [facility] LYMPHOCYTES 12.1 % [facility] MONOCYTES 6.9 % [facility] EOSINOPHILS 2.3 % [facility] BASOPHILS 0.6 % [facility] Blood BLOOD SPECIMEN / Unknown 05/02/2025 2:32 PM CDT 05/02/2025 2:32 PM CDT us Jelena HAGER HEMATOLOGY Final Resu lt [facility] [address] [place] [address], [facility] [address] [place] [phone] * URINE ALBUMIN TO CREATININE RATIO, RANDOM (05/02/2025 2:31 PM CDT) ALB RAND URINE <12.0 mg/L 05/03/2025 12:38 AM CDT [facility] CREATININE,URINE 0.46 g/L 05/03/20 12:38 AM CDT [facility] ALBUMIN TO CREATININE RATIO,RAND UR 05/03/2025 12:38 AM CDT [facility] Comment:Urine Albumin below measurement range, unable to calculate. Urine URINE SPECIMEN / Unknown Non-Blood / Unknown 05/02/2025 2:31 PM CDT 05/02/2025 2:31 PM CDT Narrative [facility] - 05/03/2025 12:38 AM CDT If Albumin to Creatinine Ratio is elevated, consider the following: Elevations seen with incipient nephropathy associated with diabetes mellitus or hypertension. Stress, exercise,hematuria, and urinary tract infection may also produce elevated results. If clinically indicated, confirm with 24 Hour Albumin to Creatinine Ratio. us Jelena Ron PA URINE Final [facility] [address] [place] [address], [place] * (ABNORMAL) XR DXA BONE DENSITY 2 SITES AXIAL [62701.1] (02/19/2021 3:02 PM CDT) Anatomical Region Laterality [...] to assess therapeutic efficacy. Halina Arriaga PA-C [facility] 02/24/2021 Narrative 02/24/2021 4:34 PM CDT XR DXA Bone Mineral Density (BMD) EXAM LOCATION: [facility] [address] [facility] [address] PATIENT NAME: Lynn Martins DATE OF : 1940 EXAM DATE: 02/19/2021 REQUESTING PROVIDER: Mona Al MD GENDER AT : female HEIGHT: 5' 1.5 (01/29/2021) WEIGHT: 133 lb 9.6 oz (01/29/2021) MENOPAUSAL STATUS: Postmenopausal [...] two scanners are made by the same agricultural produce packer. PROCEDURE: Dual-energy x-ray absorptiometry performed with routine [...] below -2.5 SD Mona Al MD DEXA Final Result from Last 3 Months or Most Recently Relevant to Health Maintenance Insurance [facility] MEDICARE ADVANTAGE MR [facility] MEDICARE [place] MEDICAID Advance Directives * Full Code (Latest Code Status on File) Date Activated Date Inactivated Comments 09/05/2023 10:42 PM 09/09/2023 6:59 PM Question Answer Comments Code Status Discussion: Reviewed Preferences Care Teams Cat Scan Technologist Relationship Specialty Start Date End Date Jelena Ron PA [address] [place] [address] PCP - General Physician [employer] Machine Operator 10/20/23 Mona Max NP [address] [facility] [address] [place] [address] Community Support Professional Registered Nurse 12/16/23
[2025-05-19 13:30] VITALS: BP 130/71; PULSE 57; RESP 20; TEMP 37.1; O2SAT 92; BMI 24.6
--- NOTE | 2025-05-19 13:43 | ED.GENADULT ---
HPI - General Adult General Date Seen: 05/19/25 Chief complaint: Shortness of Breath/Dyspnea Stated complaint: difficulty breathing, fatigued Time Seen by Provider: 05/19/25 13:21 History of Present Illness HPI narrative: Patient is an 84-year-old woman here with her daughter for evaluation of shortness of breath. Daughter went to pick her up today to do some grocery shopping and noted that her breathing was fairly labored. She says she has been feeling short of breath for the past 4 days or so, it is difficult for her to get up and do anything due to shortness of breath. She denies any chest pain. Not aware of any swelling on her legs, denies fever cough. No ill exposures that they know of. She is currently getting supplements for low iron and thought maybe that was why she was feeling short of breath. She has insulin-dependent diabetes but no history of COPD, asthma, congestive heart failure. Patient reports an echo a couple of years ago and says her heart looked fine, I am not able to find that in our system. She does not smoke. Related Data Home Medications ?Medication ?Instructions ?Recorded ?Confirmed insulin glargine 100 unit/mL (3 12 unit subcut HS 05/25/22 01/29/23 mL) subcutaneous pen amlodipine 5 mg tablet 5 mg PO DAILY 01/29/23 01/29/23 chlorthalidone 25 mg tablet 25 mg PO DAILY 01/29/23 01/29/23 insulin aspart U-100 100 unit/mL 5 - 7 unit subcut TIDWMEAL 01/29/23 01/29/23 (3 mL) subcutaneous pen losartan 100 mg tablet 100 mg PO DAILY 01/29/23 01/29/23 metformin 500 mg tablet,extended 2,000 mg PO QPM 01/29/23 01/29/23 release 24 hr metoprolol tartrate 50 mg tablet 50 mg PO BID 01/29/23 01/29/23 Previous Rx's ?Medication ?Instructions ?Recorded acetaminophen 325 mg tablet 650 mg (2 x 325 mg) PO QID PRN 01/31/23 #100 tabs amoxicillin 875 mg-potassium 1 tab PO BID #14 tabs 01/31/23 clavulanate 125 mg tablet gabapentin 100 mg capsule 100 mg PO TID #90 caps 04/15/24 Allergies Allergy/AdvReac Type Severity Reaction Status Date / Time No Known Allergies Allergy Verified 05/19/25 15:30 Review of Systems Status of ROS: Reports: 10 or more systems reviewed and unremarkable except as noted in History and below [facility] Social History Smoking Status: Never smoker Do you use any of these nicotine containing products: None How often do you have a drink containing alcohol: never How often do you have six or more drinks on one occasion: Never AUDIT-C Alcohol total score: 0 Non-prescribed substance use: denies use Caffeine: Yes service: No Exam Narrative: Exam Narrative: Vital signs reviewed In general, alert, nontoxic elderly woman. Tachypneic. Head: Normocephalic, atraumatic. Eyes: Sclera clear. Pupils equal and reactive. ENT: Mucous membranes moist. Neck: Supple without adenopathy. Heart: Regular rate and rhythm, systolic murmur heard over the right and left upper sternal border. Lungs: Overall clear, significantly decreased in the right base and somewhat decreased throughout. No wheezes. No crackles. Abdomen: Soft, nontender to palpation. Extremities: Well perfused, pulses intact. One to 2+ pitting edema in bilateral lower extremities. No calf tenderness or erythema. Neurologic: Alert, conversant. Speech fluent, face symmetric. Moves all extremities equally. Speaks in short sentences. Skin: Warm, dry well perfused. Affect: Normal. Const: Vital Signs, click to edit/add: Vital Signs - 24 hr 05/19/25 13:30 05/19/25 14:45 05/19/25 14:51 Temperature 98.7 F Pulse Rate [Pulse Oximeter] 57 L Respiratory Rate 20 33 H 29 H Blood Pressure [Ri t Upper Arm] 130/71 Pulse Oximetry 92 86 L 88 Oxygen Delivery Me thod Room Air Room Air Room Air Course Course ED Course: Patient presents with shortness of breath for several days, tachypneic and mildly labored on initial evaluation, O2 sats borderline low at 92%. Diagnostic considerations include congestive heart failure, pulmonary embolism, pleural effusion, pneumonia, pneumothorax, viral process, anemia among others. Will start with routine labs, EKG, chest x-ray. At this time I do not hear any significant bronchospasm, would suspect that this is more likely heart failure in the setting of leg edema and heart murmur, but may try a neb depending on how evaluation proceeds. Labs reviewed in their entirety. BNP mildly elevated at 1080, no previous values for comparison. Troponin is 0. D-dimer was elevated at 2.5 and therefore elected to do a CT scan. Did review the chest x-ray 1st, she has an effusion on the left, did not see any significant consolidation, maybe a little bit of vascular congestion. Radiology report reviewed, they note a small left-sided effusion, diffuse interstitial prominence bilaterally, and then some patchy opacification in the left base which could be pneumonia versus atelectasis. She does not complain of cough, is afebrile, has a normal white blood cell count of 8.8, overall I think this is more likely to be related to fluid overload than infection. I did review her CT scan, she has bilateral pleural effusions which are small, I do not see any significant consolidation on CT scan. Awaiting final radiology read. We did ambulate her in the ER here, she had become significantly dyspneic and O2 sats dropped to 86%. I think she will need hospitalization for diuresis and observation, will discuss with hospitalist. CT scan read reviewed and discussed with hospitalist as well, no PE, bilateral pleural effusions, note is made some somewhat pathologic adenopathy in the axilla and chest wall of indeterminate significance at this time. Admitted to hospital service. Vital Signs Vital signs: Initial Vital Signs Respiratory Effort Tachypnea 05/19/25 13:22 Respiratory Depth Normal 05/19/25 13:22 Respiratory Pattern Tachypnea 05/19/25 13:22 Vital Signs Temperature 98.7 F 05/19/25 13:30 Pulse Rate 57 L 05/19/25 13:30 Respiratory Rate 20 05/19/25 13:30 Blood Pressure 130/71 05/19/25 13:30 Pulse Oximetry 92 05/19/25 13:30 Oxygen Delivery Method Room Air 05/19/25 13:30 Temperature 98.7 F 05/19/25 13:30 Pulse Rate 57 L 05/19/25 13:30 Respiratory Rate 29 H 05/19/25 14:51 Blood Pressure 130/71 05/19/25 13:30 Pulse Oximetry 88 05/19/25 14:51 Oxygen Delivery Method Room Air 05/19/25 14:51 Medical Decision Making Lab Data Labs: Lab Results 05/19/25 05/19/25 Range/Units 13:43 14:04 WBC 8.82 (4.50-11.00) K/uL RBC 3.32 L (4.00-5.20) m/uL Hgb 10.1 L (12.0-16.0) gm/dL Hct 30.4 L (33.0-51.0) % MCV 92 (80-100) fL MCH 30 (26-34) pg MCHC 33 (32-36) gm/dL RDW Coeff of Funmilayo 12.8 (11.5-15.5) % Plt Count 248 (140-440) K/uL Neut % (Auto) 87.7 H (42.0-72.0) % Lymph % (Auto) 6.1 L (20-44) % Catron % (Auto) 4.2 (0.0-11.0) % Eos % (Auto) 1.4 (0.0-7.0) % Baso % (Auto) 0.3 (0.0-3.0) % Neut # (Auto) 7.70 H (1.7-7.0) K/uL Lymph # (Auto) 0.50 L (0.90-2.90) K/uL Catron # (Auto) 0.40 (0.00-0.90) K/UL Eos # (Auto) 0.12 (0.00-0.50) K/uL Baso # (Auto) 0.03 (0.00-0.30) K/uL Abs Immat Gran (auto) 0.03 (0.00-0.30) K/uL Imm/Tot Granulo (auto) 0.3 % D-Dimer Quant (PE/DVT) 2.50 H (0.00-0.50) ug/ml VBG pH 7.415 (7.32-7.43) VBG pCO2 40 (40-50) mmHG VBG pO2 57.6 H (25-47) mmHG VBG HCO3 25 (21-28) mmol/L Sodium 134 L (135-149) mmol/L Potassium 4.1 (3.6-5.1) mmol/L Chloride 104 (96-114) mmol/L Carbon Dioxide 26 (20-32) mmol/L Anion Gap 4 L (7-15) mEq/L BUN 31 H (7-30) mg/dL Creatinine 0.8 (0.5-1.5) mg/dL Estimated Creat Clear 31.60 Estimated GFR 73 ml/min Glucose 221 H (60-115) mg/dL Calcium 10.6 (8.4-10.6) mg/dL Magnesium 1.6 (1.5-2.6) mg/dL Total Bilirubin 0.6 (0.1-1.5) mg/dL AST 27 (12-35) U/L ALT 21 (4-35) U/L Alkaline Phosphatase 90 (40-150) U/L C-Reactive Protein 2.7 H (0.5-1.0) mg/dL NT-Pro-B Natriuret Pep 1080 H (See Note) pg/mL Total Protein 6.3 (6.0-8.3) g/dL Albumin 3.6 (3.3-5.0) g/dL SARS-CoV-2 (PCR) Negative SARS-CoV-2 (Negative) Influenza Type A (PCR) Negative PCR FLU A (Negative) Influenza Type B (PCR) Negative PCR FLU B (Negative) RSV (PCR) Negative PCR RSV (Negative) POC Troponin I 0.00 L (0.01-0.04) ng/ml Imaging Data Chest x-ray: Attestation: I have reviewed the pertinent imaging results. Radiologist's impression: Patient: Lynn Martins MR#: [id number] : 1940 Acct:[id number] Loc: ED Service Date: 05/19/[address]: Ordering Physician: Jelena Krishnamurthy M.D. Date of Service: 05/19/25 Procedure(s): XR chest 1V portable Accession Number(s): [id number] cc: Jelena Krishnamurthy M.D.; Jelena Ron PA-C~ For Patients: As a result of the Century Cures Act, medical imaging exams and procedure reports are released immediately into your electronic medical record. You may view this report before your referring provider. If you have questions, please contact your health care provider. INDICATION: Shortness of breath TECHNIQUE: Chest radiograph 1 view COMPARISON: None FINDINGS: Mediastinum: The central pulmonary arteries are near the upper limits of normal in size. The heart silhouette is normal in size and morphology. Lung: Diffuse interstitial prominence is present bilaterally with small left pleural effusion. Patchy airspace consolidation is seen in the left lateral lung base. No pneumothorax is identified. Bone and Soft tissue: Unremarkable for age. IMPRESSIONS: 1. Diffuse interstitial prominence is present bilaterally with small left pleural effusion. Findings may be due to interstitial edema. 2. Patchy airspace consolidation is seen in the left lateral lung base. These findings can be seen with atelectasis and/or pneumonia. Dictated by Norberto Benitez MD @ 05/19/2025 2:15:07 PM Dictated by: Norberto Benitez MD @ 05/19/2025 14:15:09 CT scan - chest: Attestation: I have reviewed the pertinent imaging results. Radiologist's impression: Patient: Lynn Martins MR#: [id number] : 1940 Acct:[id number] Loc: ED Service Date: 05/19/[address]: Ordering Physician: Jelena Krishnamurthy M.D. Date of Service: 05/19/25 Procedure(s): CT angio chest PE protocol Accession Number(s): [id number] cc: Jelena Krishnamurthy M.D.; Jelena Ron PA-C~ For Patients: As a result of the Cures Act, medical imaging exams and procedure reports are released immediately into your electronic medical record. You may view this report before your referring provider. If you have questions, please contact your health care provider. Indication: Shortness of breath, elevated D-dimer Technique: Volumetric multidetector CT images of the chest were obtained after the administration of IV contrast. 95 cc Isovue 370 low osmolar intravenous contrast Comparison: None available. Findings: There is a somewhat bulky appearance of the thyroid with minimal substernal thyroid extension. The thoracic aorta is nonaneurysmal with scattered atherosclerotic calcification. There is no central filling defect to suggest pulmonary embolism. There are extensive pathologic and confluent mediastinal and hilar lymph nodes. There is additional prominent lymph nodes appreciated within the right axilla. Marked central bronchial thickening and mucoid impaction of the lower lobe bronchi. Moderate basilar pleural effusions with diffusely increased interlobular septal markings and ground-glass opacity throughout the bilateral hemithoraces. No definite suspicious pulmonary mass lesion. The partially visualized upper abdomen demonstrates cystic changes. The thoracic vertebral body heights are grossly maintained with flowing anterior osteophytosis. There is no significant spondylolisthesis or displaced fracture. Impression: 1. Extensive thickening of the bronchi with mucoid impaction and confluent hilar and mediastinal soft tissue which may represent extensive pathologic mediastinal adenopathy. Additional somewhat pathologic right axillary and chest wall lymph nodes are appreciated. Findings may represent sequela atypical infectious process; however, underlying metastatic disease of unknown primary is not entirely excluded. 2. No evidence of pulmonary embolus. Moderate basilar pleural effusions with diffusely increased interlobular septal markings and ground-glass opacity commensurate with pulmonary edema. Please note that all CT scans at this facility use dose modulation, iterative reconstruction, and/or weight-based dosing when appropriate to reduce radiation dose to as low as reasonably achievable. Dictated by Freddie Bray MD @ 05/19/2025 4:10:12 PM Discharge Plan Discharge Clinical Impression: Dyspnea on exertion, Pleural effusion, bilateral Patient Disposition: Admitted As Inpatient Procedures ABG Interpretation ABG Results: 05/19/25 14:04 VBG pH 7.415 VBG pCO2 40 VBG pO2 57.6 H VBG HCO3 25
[2025-05-19 14:15] LABS: Hematocrit 30.4 % (33.0-51.0); Hemoglobin* 10.1 gm/dL (12.0-16.0); Immature Granulocytes Abs Auto 0.03 K/uL (0.00-0.30); Immature Granulocytes Pct Auto 0.3 %; Mean Corpuscular HGB Conc 33 gm/dL (32-36); Mean Corpuscular Hemoglobin 30 pg (26-34); Mean Corpuscular Volume 92 fL (80-100); RDW Coefficient of Variation % 12.8 % (11.5-15.5); Red Blood Count 3.32 m/uL (4.00-5.20); White Blood Count* 8.82 K/uL (4.50-11.00)
[2025-05-19 14:18] LABS: HCO3 VBG 25 mmol/L (21-28); PCO2 VBG 40 mmHG (40-50); PO2 VBG 57.6 mmHG (25-47); pH VBG 7.415 (7.32-7.43)
[2025-05-19 14:20] LABS: Troponin, Point-of-Care* 0.00 ng/ml (0.01-0.04)
[2025-05-19 14:23] LABS: Lymphocytes Absolute Auto 0.50 K/uL (0.90-2.90); Slide Review Reflex No
[2025-05-19 14:35] LABS: Albumin* 3.6 g/dL (3.3-5.0); Chloride* 104 mmol/L (96-114); Potassium* 4.1 mmol/L (3.6-5.1); Sodium* 134 mmol/L (135-149)
[2025-05-19 14:37] LABS: Alanine Aminotransferase* 21 U/L (4-35); Aspartate Amino Transferase* 27 U/L (12-35); Blood Urea Nitrogen* 31 mg/dL (7-30); Creatinine* 0.8 mg/dL (0.5-1.5); Est. Creatinine Clearance* 31.60; Estimated Glomerular Filt Rate 73 ml/min
[2025-05-19 14:38] LABS: Alkaline Phosphatase* 90 U/L (40-150); Anion Gap 4 mEq/L (7-15); Bilirubin Total* 0.6 mg/dL (0.1-1.5); Calcium* 10.6 mg/dL (8.4-10.6); Carbon Dioxide* 26 mmol/L (20-32); Glucose* 221 mg/dL (60-115); Total Protein* 6.3 g/dL (6.0-8.3)
[2025-05-19 14:45] VITALS: RESP 33; O2SAT 86
[2025-05-19 14:47] LABS: NT Pro B Type NatriureticPept* 1080 pg/mL (See Note)
[2025-05-19 14:50] LABS: D Dimer Quantitative* 2.50 ug/ml (0.00-0.50)
[2025-05-19 14:51] VITALS: RESP 29; O2SAT 88
[2025-05-19 14:55] LABS: PCR FLU A Negative PCR FLU A (Negative); PCR FLU B Negative PCR FLU B (Negative); PCR RSV Negative PCR RSV (Negative); SARS PCR* Negative SARS-CoV-2 (Negative)
--- NOTE | 2025-05-19 14:58 | CRLHL7_ITS ---
For Patients: As a result of the Century Cures Act, medical imaging exams and procedure reports are released immediately into your electronic medical record. You may view this report before your referring provider. If you have questions, please contact your health care provider. Indication: Shortness of breath, elevated D-dimer Technique: Volumetric multidetector CT images of the chest were obtained after the administration of IV contrast. 95 cc Isovue 370 low osmolar intravenous contrast Comparison: None available. Findings: There is a somewhat bulky appearance of the thyroid with minimal substernal thyroid extension. The thoracic aorta is nonaneurysmal with scattered atherosclerotic calcification. There is no central filling defect to suggest pulmonary embolism. There are extensive pathologic and confluent mediastinal and hilar lymph nodes. There is additional prominent lymph nodes appreciated within the right axilla. Marked central bronchial thickening and mucoid impaction of the lower lobe bronchi. Moderate basilar pleural effusions with diffusely increased interlobular septal markings and ground-glass opacity throughout the bilateral hemithoraces. No definite suspicious pulmonary mass lesion. The partially visualized upper abdomen demonstrates cystic changes. The thoracic vertebral body heights are grossly maintained with flowing anterior osteophytosis. There is no significant spondylolisthesis or displaced fracture. Impression: 1. Extensive thickening of the bronchi with mucoid impaction and confluent hilar and mediastinal soft tissue which may represent extensive pathologic mediastinal adenopathy. Additional somewhat pathologic right axillary and chest wall lymph nodes are appreciated. Findings may represent sequela atypical infectious process; however, underlying metastatic disease of unknown primary is not entirely excluded. 2. No evidence of pulmonary embolus. Moderate basilar pleural effusions with diffusely increased interlobular septal markings and ground-glass opacity commensurate with pulmonary edema. Please note that all CT scans at this facility use dose modulation, iterative reconstruction, and/or weight-based dosing when appropriate to reduce radiation dose to as low as reasonably achievable. Dictated by Freddie Bray MD @ 05/19/2025 4:10:12 PM (Electronically Signed)
[2025-05-19] MEDS: FUROSEMIDE 10 MG/ML inj 40 MG IVP ×2 (16:45→21:34)
[2025-05-19 17:33] VITALS: BP 170/52; PULSE 68; RESP 22; TEMP 37.4; O2SAT 92; BMI 25.7
--- NOTE | 2025-05-19 18:22 | PM.IMHP1 ---
Assessment and Plan Assessment and plan (1) Acute heart failure with preserved ejection fraction (HFpEF): Problem comment: - RAMOS, dyspnea with conversation, PND, orthopnea, unitentional 2.7 kg weight gain over the past 17 days, decreased BS in both lung bases, peripheral edema, JVD, HJR, split S2, holosystolic murmur, exertional hypoxemia with RA SaO2 dropping to 83-86%, CXR and CT scan of chest demonstrate pleural effusions, increased interstitial edema and ground-glass opacity commensurate with pulmonary edema - etiology not yet determined: hypertensive cardiomyopathy with HF versus secondary to worsening valvular cardiomyopathy - 40 mg furosemide IV in ED and BID - modify meds for treatment guidelines - monitor weights, I/O's, telemetry, ECG, TTE - education, measuring clerk consultation Status: Acute (2) Acute respiratory failure with hypoxia: Problem comment: - resting RA SaO2 90-92% - exertional RA Sa)2 83-86% - O2 supplementation - treat HF Status: Acute (3) Pleural effusion, bilateral: Problem comment: - most likely related to HF, but with abnormal CT scan of chest may need to consider obtaining diagnostic needle thoracentesis in inpatient versus outpatient setting Status: Acute (4) Abnormal CT scan of lung: Problem comment: - CT scan 05/19/2025 demonstrated the following: Extensive thickening of the bronchi with mucoid impaction and confluent hilar and mediastinal soft tissue which may represent extensive pathologic mediastinal adenopathy. Additional somewhat pathologic right axillary and chest wall lymph nodes are appreciated. Findings may represent sequela atypical infectious process; however, underlying metastatic disease of unknown primary is not entirely excluded. - will need to consider additional outpatient assessments and interventions Status: Acute (5) Mitral valve regurgitation: Problem comment: - GISELLE 08/2023 mild - recheck GISELLE in hospital Status: Acute (6) Mitral stenosis: Problem comment: - mild GISELLE 08/2023 - recheck GISELLE in hospital Status: Acute (7) Diabetes mellitus type 2 with complications: Problem comment: - modify insulin while in hospital including sliding scale - check hemoglobin A1c morning of 05/20/2025 Status: Acute (8) Bilateral hearing loss: Status: Acute (9) Essential hypertension: Status: Acute (10) Hyperlipidemia associated with type 2 diabetes mellitus: Status: Acute (11) Potential for cognitive impairment: Problem comment: - occupational therapy consultation in hospital for cognitive assessment Status: Acute Plan 1. I reviewed my impression, plans, recommendations with the patient and her daughter, Arpita 2. Answered their questions to their satisfaction 3. Continue with other supportive efforts 4. They are agreeable with above stated plans and recommendations Total Time Spent Total Time Spent: 75 min Hospitalist- H&P: TJ History of Present Illness Date Seen: 05/19/25 Chief complaint: difficulty breathing, fatigued Narrative: Lynn Martins is a 84 year old woman presents to the emergency department with her daughter today for further assessment of dyspnea. For the last 7 days the patient has noted increasing dyspnea. Initially she noted increasing dyspnea with exertion. Over time she has noted that she cannot sleep unless the head of her bed is elevated, due to dyspnea with laying down, consistent with orthopnea and paroxysmal nocturnal dyspnea. Denies chest heaviness, pressure, tightness, or pain. Denies syncope or near-syncope. Denies nausea or vomiting. Denies palpitations or fluttering. Acknowledges increasing edema of lower extremities and upper extremities. Has never been told she has heart failure in the past. Is not treated for heart failure with any diuretics. Has longstanding history of difficult to manage hypertension with patient on multiple medications for the same, hydrochlorothiazide, labetalol, valsartan, amlodipine, hydralazine. Additionally has had diabetes for some time treated with insulin, reportedly well controlled. Last transthoracic echocardiogram was in August of 2023 and demonstrated an estimated left ventricular ejection fraction of 65-70% with mild mitral regurgitation and mild mitral stenosis with mitral annular calcification. No recent fever, rigors, diaphoresis. Denies cough. No blood loss of any sort. Has been told she has iron deficiency anemia for which she takes 1 ferrous sulfate tablet 325 mg once daily. Denies icterus, jaundice, josé miguel-colored stools or dark colored urine. Denies diarrhea or constipation. Denies dysuria, urgency, frequency, hematuria. States she takes her medications as prescribed. Follows with her clinician regularly. Last saw her clinician, Jelena Ron, physician ophthalmic surgical assistant, on 05/02/2025, when her standing weight was measured at 59 kg. Standing weight today measured at 61.7 kg. Review of Systems Status of ROS: Reports: 10 or more systems reviewed and unremarkable except as noted in History and below Medical Decision Making Medical Decision Making Code Status: DNR DNI resuscitation status Has patient completed a Health Care Directive: No During This Stay, Who Would You Like To Make Decisions For You In The Event You Are Unable To Make Them For Yourself?: Son, Gutierrez, son, Binh, daughter, Arpita, daughter, Thao. [facility] Medical History (Updated 05/19/25 @ 18:44 by Benito Matias MD) Mitral stenosis ?I05.0 - Rheumatic mitral stenosis (ICD-10) Mitral valve regurgitation ?I34.0 - Nonrheumatic mitral (valve) insufficiency (ICD-10) Iron deficiency anemia ?D50.9 - Iron deficiency anemia, unspecified (ICD-10) Paresthesia and pain of both upper extremities ?R20.2 - Paresthesia of skin (ICD-10) ?M79.601 - Pain in right arm (ICD-10) ?M79.602 - Pain in left arm (ICD-10) Potential for cognitive impairment ?Z91.89 - Other specified personal risk factors, not elsewhere classified (ICD-10) Post herpetic neuralgia ?B02.29 - Other postherpetic nervous system involvement (ICD-10) Cranial nerve III palsy, partial, left ?H49.02 - Third [oculomotor] nerve palsy, left eye (ICD-10) Basal cell carcinoma of nose ?C44.311 - Basal cell carcinoma of skin of nose (ICD-10) Osteoporosis ?M81.0 - Age-related osteoporosis without current pathological fracture (ICD-10) Chronic kidney disease, stage 3 ?N18.30 - Chronic kidney disease, stage 3 unspecified (ICD-10) Bilateral hearing loss ?H91.93 - Unspecified hearing loss, bilateral (ICD-10) Diabetes mellitus type 2 with complications ?E11.8 - Type 2 diabetes mellitus with unspecified complications (ICD-10) Hyperlipidemia associated with type 2 diabetes mellitus ?E11.69 - Type 2 diabetes mellitus with other specified complication (ICD-10) ?E78.5 - Hyperlipidemia, unspecified (ICD-10) Essential hypertension ?I10 - Essential (primary) hypertension (ICD-10) Surgical History History of tonsillectomy ?Z90.89 - Acquired absence of other organs (ICD-10) Social History What is your current living situation?: I presently have a place to live Problems where you live: no known problems Problems where you live details: No Known problems In the past 12 months, utilities in danger of being shut off: no In past 12 months, lack of transportation kept you from medical appts, meetings, work, or getting things needed for daily living: no In the past 12 mos, have been you worried that your food would run out before you had money to buy more?: never true In the past 12 mos, the food you bought just didn't last and you didn't have money to buy more?: never true Highest level of school completed/degree received: high school graduate Smoking Status: Never smoker Do you use any of these nicotine containing products: None How often do you have a drink containing alcohol: never How often do you have six or more drinks on one occasion: Never AUDIT-C Alcohol total score: 0 Non-prescribed substance use: denies use Caffeine: Yes How often does anyone, including family, friends and others, physically hurt you: never How often does anyone, including family, friends and others, insult or talk down to you: never How often does anyone, including family, friends and others, threaten you with harm: never How often does anyone, including family, friends and others, scream or curse at you: never Do you think of yourself as: straight/heterosexual Gender Identity: female service: No Meds Home Medications and Allergies Home Medications ?Medication ?Instructions ?Recorded ?Confirmed ?Type insulin glargine 100 unit/mL (3 12 unit subcut HS 05/25/22 01/29/23 History mL) subcutaneous pen amlodipine 5 mg tablet 5 mg PO DAILY 01/29/23 01/29/23 History chlorthalidone 25 mg tablet 25 mg PO DAILY 01/29/23 01/29/23 History insulin aspart U-100 100 unit/mL 5 - 7 unit subcut TIDWMEAL 01/29/23 01/29/23 History (3 mL) subcutaneous pen losartan 100 mg tablet 100 mg PO DAILY 01/29/23 01/29/23 History metformin 500 mg tablet,extended 2,000 mg PO QPM 01/29/23 01/29/23 History release 24 hr metoprolol tartrate 50 mg tablet 50 mg PO BID 01/29/23 01/29/23 History acetaminophen 325 mg tablet 650 mg (2 x 325 mg) PO QID PRN 01/31/23 Rx #100 tabs amoxicillin 875 mg-potassium 1 tab PO BID #14 tabs 01/31/23 Rx clavulanate 125 mg tablet gabapentin 100 mg capsule 100 mg PO TID #90 caps 04/15/24 Rx Home Medication Comments: Current medications from outside medical records and her medication record are as follows: Hydrochlorothiazide 25 mg once daily Centrum multivitamin 1 tab daily Labetalol 200 mg twice daily Valsartan 160 mg twice daily Vitamin D 3 25 mg once daily Amlodipine 10 mg once daily Gabapentin 100 mg twice daily Hydralazine 100 mg 3 times daily Metformin 1000 mg every evening Atorvastatin 10 mg once daily Hydroxyzine 25 mg at bedtime Aspirin 81 mg once daily Ferrous sulfate 325 mg once daily Glargine insulin at bedtime dose not specified Aspart insulin 3 times daily with meals, dose not specified Allergies Allergy/AdvReac Type Severity Reaction Status Date / Time No Known Allergies Allergy Verified 05/19/25 15:30 Exam Narrative: Exam Narrative: I examined the patient in the emergency department. She is sitting on the exam table with head of bed elevated at 60? and legs outstretched in front of her. Appears dyspneic at rest. 4-6 word dyspnea, having to stop to take a breath after every 4-6 words. Obvious increased dyspnea with minimal exertion. Very hard of hearing. Able to hear when we speak slowly and directly. Does better with reading lips. Vision is adequate. External auditory canals and tympanic membranes normal. Midline nasal septum. Dentition in good repair. Moist buccal mucosa. Neck is supple. Midline trachea. Has JVD senior living up her neck and hepatojugular reflux to the angle of the jaw with head of bed at 60?. No head neck lymphadenopathy. Bilateral hand edema and bilateral lower extremity edema up to her knees. Decreased breath sounds both lung bases. Lungs otherwise clear to auscultation at this time. Chest wall excursions are full. No CVA tenderness. Heart tones with regular rhythm, normal S1 and split S2. Holosystolic murmur across the precordium grade 3-4/6. Does have a gallop. No rub. PMI is not laterally displaced. Abdomen with active bowel sounds, soft, nontender. No hepatomegaly. Skin is warm, dry, intact. Const: Vital Signs, click to edit/add: Vital Signs - 24 hr 05/19/25 13:30 05/19/25 14:45 05/19/25 14:51 Temperature 98.7 F Pulse Rate [Left P ulse Oximeter] Pulse Rate [Pulse Oximeter] 57 L Respiratory Rate 20 33 H 29 H Blood Pressure [Ri ght Arm] Blood Pressure [Ri ght Upper Arm] 130/71 Pulse Oximetry 92 86 L 88 Oxygen Delivery Me thod Room Air Room Air Room Air 05/19/25 17:33 05/19/25 17:33 Temperature 99.3 F Pulse Rate [Left P ulse Oximeter] 68 Pulse Rate [Pulse Oximeter] Respiratory Rate 22 22 Blood Pressure [Ri ght Arm] 170/52 H Blood Pressure [Ri ght Upper Arm] Pulse Oximetry 92 92 Oxygen Delivery Me thod Room Air Room Air Hospitalist - H&P: Result Labs Labs: Short CBC 05/19/25 Range/Units 14:04 WBC 8.82 (4.50-11.00) K/uL Hgb 10.1 L (12.0-16.0) gm/dL Hct 30.4 L (33.0-51.0) % Plt Count 248 (140-440) K/uL BMP 05/19/25 14:04 Sodium 134 L Potassium 4.1 Chloride 104 Carbon Dioxide 26 BUN 31 H Creatinine 0.8 Glucose 221 H Calcium 10.6 Liver Function 05/19/25 Range/Units 14:04 Total Bilirubin 0.6 (0.1-1.5) mg/dL AST 27 (12-35) U/L ALT 21 (4-35) U/L Alkaline Phosphatase 90 (40-150) U/L Albumin 3.6 (3.3-5.0) g/dL ECG Attestation: I personally reviewed and interpreted this ECG as follows: ECG interpretation date: 05/19/25 Interpretation: Sinus bradycardia without ischemic or infarct pattern Imaging Chest x-ray: Radiologist's impression: IMPRESSIONS: 1. Diffuse interstitial prominence is present bilaterally with small left pleural effusion. Findings may be due to interstitial edema. 2. Patchy airspace consolidation is seen in the left lateral lung base. These findings can be seen with atelectasis and/or pneumonia. CT scan of chest with PE protocol: Attestation: I have reviewed the pertinent imaging results. Radiologist's impression: Impression: 1. Extensive thickening of the bronchi with mucoid impaction and confluent hilar and mediastinal soft tissue which may represent extensive pathologic mediastinal adenopathy. Additional somewhat pathologic right axillary and chest wall lymph nodes are appreciated. Findings may represent sequela atypical infectious process; however, underlying metastatic disease of unknown primary is not entirely excluded. 2. No evidence of pulmonary embolus. Moderate basilar pleural effusions with diffusely increased interlobular septal markings and ground-glass opacity commensurate with pulmonary edema.
[2025-05-19] MEDS: POTASSIUM CHLORIDE 10 MEQ CAPSULE ER 20 MEQ PO (18:33)
[2025-05-19] MEDS: METOPROLOL SUCCINATE (XL) 25 MG TAB PO (18:34)
[2025-05-19] MEDS: INSULIN ASPART 100 UNIT/ML SUBCUT ×3 (18:49→21:41)
[2025-05-19 19:00] VITALS: BP 161/94; PULSE 67; RESP 22; TEMP 37.3; O2SAT 93
--- NOTE | 2025-05-19 19:04 | PC.NURSE ---
Patient was admitted for SOB and fatigued. Accompanied by daughter (Arpita). Vitally stable. She demonstrates moderate anxiety. Patient is hard of hearing, has hearing aids on, but like to see the lips of the person speaking to her. New IV started at 18:00 on right forearm (previously on left AC). Patient stated she was worried about the initial IV location because she is left handed. Dexcom on left upper arm. Patient took all her home meds (including insulin) without notifying RN or MD. Purewick in place due to diuresis.
[2025-05-19] MEDS: ENOXAPARIN 30 MG/0.3ML INJ SUBCUT (21:32)
[2025-05-19] MEDS: HYDRALAZINE 25 MG TABLET PO (21:33)
[2025-05-19] MEDS: GABAPENTIN 100 MG CAPSULE PO (21:33)
[2025-05-19] MEDS: ATORVASTATIN CALCIUM 10 MG TABLET PO (21:34)
[2025-05-19] MEDS: SODIUM CHLORIDE 0.9 % (FLUSH) 10 ML SYRINGE 5 ML IVF (21:38)
[2025-05-19] MEDS: MELATONIN 3 MG TABLET PO (22:43)
[2025-05-19 23:00] VITALS: BP 148/52; PULSE 67; PULSE 68; RESP 20; TEMP 37.5; O2SAT 90
[2025-05-20] VITALS (12 sets, daily range): BP systolic 141–168; BP diastolic 60–92; PULSE 56–70; RESP 16–18; TEMP 36.6–37.6; O2SAT 91–95
--- NOTE | 2025-05-20 06:27 | PC.NURSE ---
The patient is alert and orientated, KAW and quite anxious with interactions throughout the night. No reports of pain this shift. SOB noted at times even at rest, dry intermittent cough. Purewick in place due to diuresis and frequent voids. 2+ Edema in BLE. VS on RA. Call light within reach and alarm is in place. Elana HERNANDEZ BSN
[2025-05-20 06:32] LABS: Lactate* 0.7 mmol/L (0.5-1.9)
[2025-05-20 06:41] LABS: Hematocrit 31.3 % (33.0-51.0); Hemoglobin* 10.6 gm/dL (12.0-16.0); Mean Corpuscular HGB Conc 34 gm/dL (32-36); Mean Corpuscular Hemoglobin 31 pg (26-34); Mean Corpuscular Volume 91 fL (80-100); Red Blood Count 3.45 m/uL (4.00-5.20); White Blood Count* 9.25 K/uL (4.50-11.00)
[2025-05-20 06:43] LABS: Slide Review Reflex No
[2025-05-20 06:51] LABS: Albumin* 3.6 g/dL (3.3-5.0); Chloride* 103 mmol/L (96-114); Potassium* 3.5 mmol/L (3.6-5.1); Sodium* 137 mmol/L (135-149)
[2025-05-20 06:54] LABS: Anion Gap 4 mEq/L (7-15); Blood Urea Nitrogen* 29 mg/dL (7-30); Calcium* 10.8 mg/dL (8.4-10.6); Carbon Dioxide* 30 mmol/L (20-32); Cholesterol* 89 mg/dL (90-199); Creatinine* 1.0 mg/dL (0.5-1.5); Est. Creatinine Clearance* 31.04; Estimated Glomerular Filt Rate 55 ml/min; Glucose* 107 mg/dL (60-115); Triglycerides* 93 mg/dL (40-149)
[2025-05-20 06:55] LABS: HDL Cholesterol* 31 mg/dL (>=50)
[2025-05-20 07:12] LABS: NT Pro B Type NatriureticPept* 1290 pg/mL (See Note)
--- NOTE | 2025-05-20 07:15 | PM.IMPN1 ---
Assessment and Plan Assessment and plan (1) Acute heart failure with preserved ejection fraction (HFpEF): Problem comment: - with evidence of exacerbation given RAMOS, PND, orthopnea, 2.7 kg weight gain, peripheral edema, JVD, HJR, split S2, holosystolic murmur, exertional hypoxemia (83-86%) - CXR and CT scan of chest demonstrate pleural effusions, increased interstitial edema and ground-glass opacity commensurate with pulmonary edema - etiology not yet determined: hypertensive cardiomyopathy with HF versus secondary to worsening valvular cardiomyopathy - received 40 mg furosemide IV in ED on 05/19, now scheduled BID - medication changes: STOPPED Labetalol, Amlodipine, and HCTZ; INITIATED Metoprolol, Entresto, Lasix and Spironolactone - TTE 05/20: normal LV size and wall thickness, EF 55-60%, normal diastolic function Status: Acute (2) Acute respiratory failure with hypoxia: Problem comment: - resting RA SaO2 90-92%, as low as 86% on RA in ER - improving with HF management Status: Acute (3) Cognitive impairment: Problem comment: - MOCA with OT on 05/20; family aware - son is managing medications, Lynn is not driving Status: Acute (4) Pleural effusion, bilateral: Problem comment: - most likely related to HF, but with abnormal CT scan of chest may need to consider obtaining diagnostic needle thoracentesis in inpatient versus outpatient setting Status: Acute (5) Abnormal CT scan of lung: Problem comment: - CT scan 05/19/2025 demonstrated the following: Extensive thickening of the bronchi with mucoid impaction and confluent hilar and mediastinal soft tissue which may represent extensive pathologic mediastinal adenopathy. Additional somewhat pathologic right axillary and chest wall lymph nodes are appreciated. Findings may represent sequela atypical infectious process; however, underlying metastatic disease of unknown primary is not entirely excluded. - will need to consider additional outpatient assessments and interventions Status: Acute (6) Diabetes mellitus type 2 with complications: Problem comment: - modify insulin while in hospital including sliding scale - last A1C 6.0 Status: Acute (7) Bilateral hearing loss: Status: Acute (8) Essential hypertension: Problem comment: - medication changes: STOPPED Labetalol, Amlodipine, and HCTZ; INITIATED Metoprolol, Entresto, Lasix and Spironolactone - currently has age appropriate control Status: Acute Plan - per above - monitor weight, VS with medication changes - likely back to [facility] 1-2 days - daughter Arpita updated by phone, questions answered Subjective Date Seen: 05/20/25 Interval history: Lynn presented to the hospital on 05/19 for RAMOS, PND, weight gain. + hypoxia with saturations as low as 86% on RA, 90-91% this morning. Evaluation consistent with CHF exacerbation and she was admitted for diuresis with IV furosemide, EF evaluation, and titration of GDMT. Exam Narrative: Exam Narrative: GEN: Alert, nontoxic, sitting in bedside chair without increased work of breathing HEENT: EOMIs bilaterally, no scleral icterus CV: RRR, No concerning murmurs, rubs, or gallops R: LCTA bilaterally without concerning wheezing, rales, or rhonchi Ext: wwp, + edema of BUEs and BLEs, improved from admission per patient Neuro: No focal deficits Psych: Cognitive impairment is evident, + anxiety, some perseveration on health, no agitation Const: Vital Signs, click to edit/add: Vital Signs - 24 hr 05/19/25 13:30 05/19/25 14:45 05/19/25 14:51 Temperature 98.7 F Pulse Rate Pulse Rate [Left P ulse Oximeter] Pulse Rate [Pulse Oximeter] 57 L Respiratory Rate 20 33 H 29 H Blood Pressure [Ri ght Arm] Blood Pressure [Ri ght Upper Arm] 130/71 Pulse Oximetry 92 86 L 88 Oxygen Delivery Sd thod Room Air Room Air Room Air 05/19/25 17:33 05/19/25 17:33 05/19/25 19:00 Temperature 99.3 F 99.2 F Pulse Rate Pulse Rate [Left P ulse Oximeter] 68 67 Pulse Rate [Pulse Oximeter] Respiratory Rate 22 22 22 Blood Pressure [Ri ght Arm] 170/52 H 161/94 H Blood Pressure [Ri ght Upper Arm] Pulse Oximetry 92 92 93 Oxygen Delivery Me thod Room Air Room Air Room Air 05/19/25 23:00 05/19/25 23:00 05/19/25 23:00 Temperature 99.5 F Pulse Rate 68 Pulse Rate [Left P ulse Oximeter] 67 Pulse Rate [Pulse Oximeter] Respiratory Rate 20 20 Blood Pressure [Ri ght Arm] 148/52 H Blood Pressure [Ri ght Upper Arm] Pulse Oximetry 90 90 Oxygen Delivery Me thod Room Air Room Air 05/20/25 03:00 Temperature 99.0 F Pulse Rate Pulse Rate [Left P ulse Oximeter] 70 Pulse Rate [Pulse Oximeter] Respiratory Rate 18 Blood Pressure [Ri ght Arm] 145/60 H Blood Pressure [Ri ght Upper Arm] Pulse Oximetry 91 Oxygen Delivery Me thod Room Air Labs Labs: Laboratory Results - last 24 hr 05/19/25 05/19/25 05/20/25 13:43 14:04 06:10 WBC 8.82 9.25 RBC 3.32 L 3.45 L Hgb 10.1 L 10.6 L Hct 30.4 L 31.3 L MCV 92 91 MCH 30 31 MCHC 33 34 RDW Coeff of [place]mil[place] 12.8 Plt Count 248 289 Neut % (Auto) 87.7 H Lymph % (Auto) 6.1 L [place] % (Auto) 4.2 Eos % (Auto) 1.4 Baso % (Auto) 0.3 Neut # (Auto) 7.70 H Lymph # (Auto) 0.50 L [place] # (Auto) 0.40 Eos # (Auto) 0.12 Baso # (Auto) 0.03 Abs Immat Gran (auto) 0.03 Imm/Tot Granulo (auto) 0.3 D-Dimer Quant (PE/DVT) 2.50 H VBG pH 7.415 VBG pCO2 40 VBG pO2 57.6 H VBG HCO3 25 Sodium 134 L 137 Potassium 4.1 3.5 L Chloride 104 103 Carbon Dioxide 26 30 Anion Gap 4 L 4 L BUN 31 H 29 Creatinine 0.8 1.0 Estimated Creat Clear 31.60 31.04 Estimated GFR 73 55 Glucose 221 H 107 Lactate 0.7 Calcium 10.6 10.8 H Phosphorus 2.9 Magnesium 1.6 1.6 Total Bilirubin 0.6 AST 27 ALT 21 Alkaline Phosphatase 90 Troponin I < 0.01 C-Reactive Protein 2.7 H NT-Pro-B Natriuret Pep 1080 H 1290 H Total Protein 6.3 Albumin 3.6 3.6 Triglycerides 93 Cholesterol 89 L LDL Cholesterol, Calc 39 HDL Cholesterol 31 L SARS-CoV-2 (PCR) Negative SARS-CoV-2 Influenza Type A (PCR) Negative PCR FLU A Influenza Type B (PCR) Negative PCR FLU B RSV (PCR) Negative PCR RSV POC Troponin I 0.00 L
[2025-05-20] MEDS: POTASSIUM CHLORIDE 10 MEQ CAPSULE ER 20 MEQ PO ×2 (08:08→17:41)
[2025-05-20] MEDS: FUROSEMIDE 10 MG/ML inj 40 MG IVP ×2 (08:08→14:38)
[2025-05-20] MEDS: INSULIN ASPART 100 UNIT/ML SUBCUT ×4 (08:10→20:58)
[2025-05-20] MEDS: GABAPENTIN 100 MG CAPSULE PO ×3 (09:35→20:57)
[2025-05-20] MEDS: FERROUS SULFATE 325 MG TABLET PO (09:35)
[2025-05-20] MEDS: ASPIRIN 81 MG TAB.CHEW PO (09:35)
[2025-05-20] MEDS: SODIUM CHLORIDE 0.9 % (FLUSH) 10 ML SYRINGE 5 ML IVF ×2 (09:36→21:03)
[2025-05-20] MEDS: SPIRONOLACTONE 25 MG TABLET PO (09:36)
[2025-05-20] MEDS: HYDRALAZINE 25 MG TABLET PO ×3 (09:36→20:57)
[2025-05-20] MEDS: METOPROLOL SUCCINATE (XL) 25 MG TAB PO ×2 (09:37→20:57)
--- NOTE | 2025-05-20 11:18 | NUTR.NU ---
RDN with MD consult for new heart failure diagnosis with diabetes mellitus and patient on a heart healthy diet. Patient admitted with acute heart failure with preserved ejection fraction. Medical history includes, but not limited to acute respiratory failure with hypoxia, bilateral pleural effusion, mitral valve regurgitation, mitral stenosis, type 2 diabetes mellitus, bilateral hearing loss, essential hypertension, hyperlipidemia, and osteoporosis. Current weight 129lbs, height 5ft 1in, and BMI 24.4 kg/m2. No recent weight history available for review at this time. Admission weight 136lbs. RDN anticipates patient's weight may fluctuate d/t diuretic use and diagnosis of heart failure. Per learning and development specialist, patient is eating 75-100% of most meals recorded since admission. [facility] RDN visited with patient in room on this day and also communicated with designated caregiver Arpita via phone for nutrition education. Nutrition education provided on a low sodium diet related to heart failure.? Verbal and written information provided. Recommend limiting sodium to 2,000 mg per day.? Also discussed limiting saturated fat intake. Discussed foods recommended and to avoid.? Handouts provided from [facility] on heart failure nutrition therapy, sodium content of foods, heart healthy label reading tips, sodium-free flavoring tips and heart healthy cooking and shopping tips. Diabetic diet education provided. Discussed basics of carbohydrate counting including sources of carbohydrates, serving sizes, and label reading. Discussed using the plate method for carbohydrate-controlled, balanced meals that include ? plate non-starchy vegetables, ? plate protein, and 3-4 servings of carbohydrates per meal (fruit, whole grains, legumes, milk, yogurt) and 1-2 per snack. Handouts provided to support discussion. Patient and designated caregiver verbalized understanding.?RDN's contact information was provided and patient was encouraged to call with questions.?RDN to follow-up prn.
[2025-05-20 15:35] LABS: Appearance Urine Clear (Clear)
--- NOTE | 2025-05-20 15:43 | PC.SOCIAL ---
Discharge planning- Phone call to patient's daughter Arpita Martins to obtain information. Arpita informs that patient lives at [facility] and is independent and does not receive any services through the facility. Patient has two daughters and two sons that are involved and provide assistance. Arpita informs that patient's other daughter Thao takes patient shopping as patient will not eat meals at [facility] as she is very particular with what she eats. Patients eats many organic foods including salads and frozen foods. Patient does not cook much, but typically only prepares foods. Patient's children also occasionally take patient out to eat meals. Patient's son does medication set up and medication management. Patient currently completes her own ADL's including showering. Patient's family is open to increasing services, if recommended. Nuclear Instructor informs that social work will continue to follow up as needed and assist with discharge needs based on discharge recommendations.
[2025-05-20] MEDS: ATORVASTATIN CALCIUM 10 MG TABLET PO (17:41)
--- NOTE | 2025-05-20 18:46 | PC.NURSE ---
End of shift [id number]: Pt AxOx4, cooperative, and pleasant with cares. Pt is anxious and asks repeated questions. Education continued to be given. SBA with GB. Tolerating diabetic?diet and fluids well. Denies pain. Continent of bladder. Reports SOB with prolonged activity. Denies SOB at rest. Sats remain >90% on RA. Family visiting to celebrate Pts birthday. Call light within reach. Up in chair. Chair alarm in place. ?
[2025-05-20] MEDS: ENOXAPARIN 30 MG/0.3ML INJ SUBCUT (20:57)
[2025-05-20] MEDS: MELATONIN 3 MG TABLET PO (23:00)
[2025-05-21 02:59] VITALS: BP 138/51; PULSE 57; RESP 16; TEMP 37.2; O2SAT 89
[2025-05-21 06:29] LABS: Hematocrit 32.8 % (33.0-51.0); Hemoglobin* 10.8 gm/dL (12.0-16.0); Immature Granulocytes Abs Auto 0.03 K/uL (0.00-0.30); Immature Granulocytes Pct Auto 0.3 %; Mean Corpuscular HGB Conc 33 gm/dL (32-36); Mean Corpuscular Hemoglobin 30 pg (26-34); Mean Corpuscular Volume 92 fL (80-100); RDW Coefficient of Variation % 12.8 % (11.5-15.5); Red Blood Count 3.56 m/uL (4.00-5.20); White Blood Count* 8.69 K/uL (4.50-11.00)
[2025-05-21 06:42] LABS: Chloride* 104 mmol/L (96-114); Lymphocytes Absolute Auto 1.60 K/uL (0.90-2.90); Sodium* 139 mmol/L (135-149)
[2025-05-21 06:43] LABS: Potassium* 3.8 mmol/L (3.6-5.1); Slide Review Reflex No
[2025-05-21 06:45] LABS: Albumin* 3.5 g/dL (3.3-5.0); Blood Urea Nitrogen* 25 mg/dL (7-30); Chloride* 105 mmol/L (96-114); Creatinine* 0.9 mg/dL (0.5-1.5); Est. Creatinine Clearance* 31.04; Estimated Glomerular Filt Rate 63 ml/min; Potassium* 3.7 mmol/L (3.6-5.1); Sodium* 139 mmol/L (135-149)
[2025-05-21 06:46] LABS: Anion Gap 5 mEq/L (7-15); Calcium* 10.4 mg/dL (8.4-10.6); Carbon Dioxide* 30 mmol/L (20-32); Glucose* 122 mg/dL (60-115)
[2025-05-21 06:48] LABS: Anion Gap 4 mEq/L (7-15); Blood Urea Nitrogen* 25 mg/dL (7-30); Calcium* 10.4 mg/dL (8.4-10.6); Carbon Dioxide* 30 mmol/L (20-32); Creatinine* 0.9 mg/dL (0.5-1.5); Est. Creatinine Clearance* 31.04; Estimated Glomerular Filt Rate 63 ml/min; Glucose* 121 mg/dL (60-115)
--- NOTE | 2025-05-21 06:54 | PC.NURSE ---
Arrived to find the patient alert and able to answer correctly all my orientation questions but of a strange mentation. She often speaks very softly, has difficulty getting our her words, and tremors while awake. By morning she was hyperverbal and seemed to have racing thoughts. Evident impairment of information retention. Does not always use her call light to signal need to get out of bed. Hard of hearing and uses hearing aids. Wears glasses. Vitally they have been bradycardic. For most the night they have been sitting around 50 but did for an hour dip into the mid 40s. I called our on-call physician service and was given a directive by Dr. De La Cruz that her bradycardia is allowable at this time and not in need of intervention. The patient?s compression socks were removed overnight. No signs of any edema or swelling once removed. Some swelling noted by the morning but non-pitting. Oxygenation has been in the upper 80s while asleep and on room air. I applied a nasal canula and 2L to keep her oxygenated in the lower 90s. No other developments overnight. ?
[2025-05-21 07:00] VITALS: BP 153/63; PULSE 55; PULSE 57; RESP 20; TEMP 37.2; O2SAT 93
[2025-05-21] MEDS: INSULIN ASPART 100 UNIT/ML SUBCUT ×3 (08:31→12:25)
[2025-05-21] MEDS: ASPIRIN 81 MG TAB.CHEW PO (08:35)
[2025-05-21] MEDS: FUROSEMIDE 10 MG/ML inj 40 MG IVP (08:36)
[2025-05-21] MEDS: POTASSIUM CHLORIDE 10 MEQ CAPSULE ER 20 MEQ PO (08:36)
[2025-05-21] MEDS: GABAPENTIN 100 MG CAPSULE PO (08:37)
[2025-05-21] MEDS: SPIRONOLACTONE 25 MG TABLET PO (08:37)
[2025-05-21] MEDS: SODIUM CHLORIDE 0.9 % (FLUSH) 10 ML SYRINGE 5 ML IVF (08:37)
[2025-05-21] MEDS: FERROUS SULFATE 325 MG TABLET PO (08:37)
--- NOTE | 2025-05-21 09:28 | PM.IMPN1 ---
Assessment and Plan Assessment and plan (1) Acute heart failure with preserved ejection fraction (HFpEF): Problem comment: - with evidence of exacerbation given RAMOS, PND, orthopnea, 2.7 kg weight gain, peripheral edema, JVD, HJR, split S2, holosystolic murmur, exertional hypoxemia (83-86%) - CXR and CT scan of chest demonstrate pleural effusions, increased interstitial edema and ground-glass opacity commensurate with pulmonary edema - etiology not yet determined: hypertensive cardiomyopathy with HF versus secondary to worsening valvular cardiomyopathy - received 40 mg furosemide IV in ED on 05/19, now scheduled BID - medication changes: STOPPED Labetalol, Amlodipine, and HCTZ; INITIATED Metoprolol, Entresto, Lasix and Spironolactone - TTE 05/20: normal LV size and wall thickness, EF 55-60%, normal diastolic function Status: Acute (2) Acute respiratory failure with hypoxia: Problem comment: - resting RA SaO2 90-92%, as low as 86% on RA in ER - improving with HF management Status: Acute (3) Cognitive impairment: Problem comment: - MOCA with OT on 05/20; family aware - son is managing medications, Lynn is not driving Status: Acute (4) Pleural effusion, bilateral: Problem comment: - most likely related to HF, but with abnormal CT scan of chest may need to consider obtaining diagnostic needle thoracentesis in inpatient versus outpatient setting Status: Acute (5) Abnormal CT scan of lung: Problem comment: - CT scan 05/19/2025 demonstrated the following: Extensive thickening of the bronchi with mucoid impaction and confluent hilar and mediastinal soft tissue which may represent extensive pathologic mediastinal adenopathy. Additional somewhat pathologic right axillary and chest wall lymph nodes are appreciated. Findings may represent sequela atypical infectious process; however, underlying metastatic disease of unknown primary is not entirely excluded. - will need to consider additional outpatient assessments and interventions Status: Acute (6) Diabetes mellitus type 2 with complications: Problem comment: - modify insulin while in hospital including sliding scale - last A1C 6.0 Status: Acute (7) Bilateral hearing loss: Status: Acute (8) Essential hypertension: Problem comment: - medication changes: STOPPED Labetalol, Amlodipine, and HCTZ; INITIATED Metoprolol, Entresto, Lasix and Spironolactone - currently has age appropriate control Status: Acute Subjective Date Seen: 05/21/25 Interval history: Lynn presented to the hospital on 05/19 for RAMOS, PND, weight gain. + hypoxia with saturations as low as 86% on RA, 90-91% this morning. Evaluation consistent with CHF exacerbation and she was admitted for diuresis with IV furosemide, EF evaluation, and titration of GDMT. Imaging in ER revealed no PE, but + incidental bronchial thickening and concerns for pathologic mediastinal adenopathy + R axillary and chest wall lymphadenopathy, could not exclude underlying metastatic disease. Patient and daughter updated on these findings on admission; considering plans for f/u based on goals fo care. Since admission: - initiated Furosemide: received 40 mg furosemide IV in ED on 05/19, given IV BID on 05/20, transitioning to oral Furosemide 05/21 - other medication changes: STOPPED Labetalol, Amlodipine, and HCTZ; INITIATED Metoprolol, Entresto, Lasix and Spironolactone - TTE 05/20: normal LV size and wall thickness, EF 55-60%, normal diastolic function - UA negative for proteinuria - MOCA Lynn is tolerating medication changes, working with therapies. Exam Const: Vital Signs, click to edit/add: Vital Signs - 24 hr 05/20/25 11:23 05/20/25 14:34 05/20/25 14:46 Temperature 98.6 F 98.6 F Pulse Rate 56 L Pulse Rate [Left P ulse Oximeter] 59 L 59 L Respiratory Rate 18 16 Blood Pressure [Ri ght Arm] 144/64 H 141/92 H Pulse Oximetry 92 92 Oxygen Delivery Me thod Room Air Room Air 05/20/25 15:00 05/20/25 19:46 05/20/25 22:41 Temperature 98 F Pulse Rate Pulse Rate [Left P ulse Oximeter] 58 L Respiratory Rate 16 16 16 Blood Pressure [Ri ght Arm] 156/63 H Pulse Oximetry 92 92 95 Oxygen Delivery Me thod Room Air Room Air Room Air 05/20/25 22:56 05/20/25 23:00 05/21/25 02:59 Temperature 98.6 F 98.9 F Pulse Rate 65 Pulse Rate [Left P ulse Oximeter] 65 57 L Respiratory Rate 16 16 Blood Pressure [Ri ght Arm] 168/63 H 138/51 L Pulse Oximetry 91 89 Oxygen Delivery Me thod Room Air Room Air 05/21/25 07:00 05/21/25 07:00 05/21/25 07:00 Temperature 98.9 F Pulse Rate 55 L Pulse Rate [Left P ulse Oximeter] 57 L Respiratory Rate 20 20 Blood Pressure [Ri ght Arm] 153/63 H Pulse Oximetry 93 93 Oxygen Delivery Me thod Room Air Room Air Labs Labs: Laboratory Results - last 24 hr 05/20/25 05/21/25 05/21/25 15:27 06:08 06:08 WBC 8.69 RBC 3.56 L Hgb 10.8 L Hct 32.8 L MCV 92 MCH 30 MCHC 33 RDW Coeff of [place] 12.8 Plt Count 289 Neut % (Auto) 67.3 Lymph % (Auto) 18.3 L [place] % (Auto) 9.0 Eos % (Auto) 4.4 Baso % (Auto) 0.7 Neut # (Auto) 5.85 Lymph # (Auto) 1.60 [place] # (Auto) 0.80 Eos # (Auto) 0.38 Baso # (Auto) 0.06 Abs Immat Gran (auto) 0.03 Imm/Tot Granulo (auto) 0.3 Sodium 139 139 Potassium 3.8 Chloride Carbon Dioxide Anion Gap BUN Creatinine Estimated Creat Clear Estimated GFR Glucose Calcium Phosphorus Albumin Urine Color Yellow Urine Appearance Clear Urine pH 6.5 Ur Specific [place] 1.015 Urine Protein Negative Urine Glucose (UA) Negative Urine Ketones Negative Urine Blood Negative Urine Nitrite Negative Urine Bilirubin Negative Urine Urobilinogen 0.2 Ur Leukocyte Esterase Negative 05/21/25 05/21/25 05/21/25 06:08 06:08 06:08 WBC RBC Hgb Hct MCV MCH MCHC RDW Coeff of [place] Plt Count Neut % (Auto) Lymph % (Auto) [place] % (Auto) Eos % (Auto) Baso % (Auto) Neut # (Auto) Lymph # (Auto) [place] # (Auto) Eos # (Auto) Baso # (Auto) Abs Immat Gran (auto) Imm/Tot Granulo (auto) Sodium Potassium 3.7 Chloride 104 105 Carbon Dioxide 30 30 Anion Gap 5 L BUN Creatinine Estimated Creat Clear Estimated GFR Glucose Calcium Phosphorus Albumin Urine Color Urine Appearance Urine pH Ur Specific [place] Urine Protein Urine Glucose (UA) Urine Ketones Urine Blood Urine Nitrite Urine Bilirubin Urine Urobilinogen Ur Leukocyte Esterase 05/21/25 05/21/25 05/21/25 06:08 06:08 06:08 WBC RBC Hgb Hct MCV MCH MCHC RDW Coeff of [place] Plt Count Neut % (Auto) Lymph % (Auto) [place] % (Auto) Eos % (Auto) Baso % (Auto) Neut # (Auto) Lymph # (Auto) [place] # (Auto) Eos # (Auto) Baso # (Auto) Abs Immat Gran (auto) Imm/Tot Granulo (auto) Sodium Potassium Chloride Carbon Dioxide Anion Gap 4 L BUN 25 25 Creatinine 0.9 0.9 Estimated Creat Clear 31.04 Estimated GFR Glucose Calcium Phosphorus Albumin Urine Color Urine Appearance Urine pH Ur Specific [place] Urine Protein Urine Glucose (UA) Urine Ketones Urine Blood Urine Nitrite Urine Bilirubin Urine Urobilinogen Ur Leukocyte Esterase 05/21/25 05/21/25 05/21/25 06:08 06:08 06:08 WBC RBC Hgb Hct MCV MCH MCHC RDW Coeff of [place] Plt Count Neut % (Auto) Lymph % (Auto) [place] % (Auto) Eos % (Auto) Baso % (Auto) Neut # (Auto) Lymph # (Auto) [place] # (Auto) Eos # (Auto) Baso # (Auto) Abs Immat Gran (auto) Imm/Tot Granulo (auto) Sodium Potassium Chloride Carbon Dioxide Anion Gap BUN Creatinine Estimated Creat Clear 31.04 Estimated GFR 63 63 Glucose 122 H 121 H Calcium 10.4 Phosphorus Albumin Urine Color Urine Appearance Urine pH Ur Specific [place] Urine Protein Urine Glucose (UA) Urine Ketones Urine Blood Urine Nitrite Urine Bilirubin Urine Urobilinogen Ur Leukocyte Esterase 05/21/25 06:08 WBC RBC Hgb Hct MCV MCH MCHC RDW Coeff of [place]mil[place] Plt Count Neut % (Auto) Lymph % (Auto) [place] % (Auto) Eos % (Auto) Baso % (Auto) Neut # (Auto) Lymph # (Auto) [place] # (Auto) Eos # (Auto) Baso # (Auto) Abs Immat Gran (auto) Imm/Tot Granulo (auto) Sodium Potassium Chloride Carbon Dioxide Anion Gap BUN Creatinine Estimated Creat Clear Estimated GFR Glucose Calcium 10.4 Phosphorus 3.2 Albumin 3.5 Urine Color Urine Appearance Urine pH Ur Specific [place] Urine Protein Urine Glucose (UA) Urine Ketones Urine Blood Urine Nitrite Urine Bilirubin Urine Urobilinogen Ur Leukocyte Esterase
[2025-05-21] MEDS: METOPROLOL SUCCINATE (XL) 25 MG TAB PO (09:31)
[2025-05-21] MEDS: HYDRALAZINE 25 MG TABLET PO (09:31)
[2025-05-21 11:03] VITALS: BP 138/76; PULSE 61; O2SAT 92
--- NOTE | 2025-05-21 11:07 | P.DS_ITS ---
DS: Providers Provider Date Seen: 05/21/25 Date of admission: 05/19/25 20:07 Primary care physician: Jelena Ron PA-C Admitting Clinician: Benito Matias MD Consults: PT, OT Attending Physician on discharge: Keena Hyman MD Date of Discharge: 05/21/25 DS: Diagnosis Discharge Diagnosis (1) Acute heart failure with preserved ejection fraction (HFpEF): Status: Acute Problem details: - with evidence of exacerbation given RAMOS, PND, orthopnea, 2.7 kg weight gain, peripheral edema, JVD, HJR, split S2, holosystolic murmur, exertional hypoxemia (83-86%) - CXR and CT scan of chest demonstrate pleural effusions, increased interstitial edema and ground-glass opacity commensurate with pulmonary edema - etiology not yet determined: hypertensive cardiomyopathy with HF versus secondary to worsening valvular cardiomyopathy - received 40 mg furosemide IV in ED on 05/19, now scheduled BID - medication changes: STOPPED Labetalol, Amlodipine, and HCTZ; INITIATED Metoprolol, Entresto, Lasix and Spironolactone - TTE 05/20: normal LV size and wall thickness, EF 55-60%, normal diastolic function - down 5kg from admission to discharge (2) Acute respiratory failure with hypoxia: Status: Acute Problem details: - resting RA SaO2 90-92%, as low as 86% on RA in ER - improved with HF management, stable on RA during the day and with therapies (3) Cognitive impairment: Status: Acute Problem details: - MOCA 18/30 with OT on 05/20; family aware - son is managing medications, Lynn is not driving (4) Pleural effusion, bilateral: Status: Acute Problem details: - most likely related to HF, but with abnormal CT scan of chest may need to consider obtaining diagnostic needle thoracentesis in inpatient versus outpatient setting (5) Abnormal CT scan of lung: Status: Acute Problem details: - CT scan 05/19/2025 demonstrated the following: Extensive thickening of the bronchi with mucoid impaction and confluent hilar and mediastinal soft tissue which may represent extensive pathologic mediastinal adenopathy. Additional somewhat pathologic right axillary and chest wall lymph nodes are appreciated. Findings may represent sequela atypical infectious process; however, underlying metastatic disease of unknown primary is not entirely excluded. - patient and daughter aware, will discuss f/u with PCP (6) Diabetes mellitus type 2 with complications: Status: Acute Problem details: - modify insulin while in hospital including sliding scale - last A1C 6.0 (7) Bilateral hearing loss: Status: Acute Problem details: - wears hearing aides (8) Essential hypertension: Status: Acute Problem details: - medication changes: STOPPED Labetalol, Amlodipine, Hydralazine, and HCTZ; INITIATED Metoprolol, Entresto, Lasix and Spironolactone - currently has age appropriate control DS: Summary Hospital Course Hospital Course: Lynn presented to the hospital on 05/19 for RAMOS, PND, weight gain. + hypoxia with saturations as low as 86% on RA, improved during stay and stable on RA upon discharge. Imaging in ER revealed no PE, but + incidental bronchial thickening and concerns for pathologic mediastinal adenopathy + R axillary and chest wall lymphade nopathy, could not exclude underlying metastatic disease. Patient and daughter updated on these findings on admission and discharge; considering plans for f/u based on goals of care. Initial evaluation consistent with CHF exacerbation and she was admitted for diuresis with IV furosemide, EF evaluation, and titration of GDMT. No proteinuria, reassuring LFTs. During stay: - initiated Furosemide: received 40 mg furosemide IV in ED on 05/19, given IV BID on 05/20, transitioned to oral Furosemide 05/21 - other medication changes: STOPPED Labetalol, Hydralazine, Amlodipine, and HCTZ; INITIATED Metoprolol, Entresto, Lasix and Spironolactone - TTE 05/20: normal LV size and wall thickness, EF 55-60%, normal diastolic function - MOCA 18 - No PT needs identified, OT recommended outpatient evaluation at [facility] Lynn tolerated medication changes, stable labs on 05/21 and medically appropriate for d/c back to [facility] with family. Status at Discharge Functional status at discharge: uses cane/walker Time Spent with Patient Time attestation: Total time spent providing and/or coordinating discharge services: Time spent: Greater than 30 minutes Specific discharge activities: Medication reconciliation, family updates Exam Narrative: Exam Narrative: GEN: Alert, nontoxic, sitting in bedside chair and having breakfast HEENT: EOMIs bilaterally, no scleral icterus CV: RRR, No concerning murmurs, rubs, or gallops R: LCTA bilaterally without concerning wheezing, rales, or rhonchi Ext: Edema of BUEs much improved, LE also have improved edema from admission Neuro: No focal deficits Psych: Nervous about discharge but redirectable, no agitation Const: Vital Signs, click to edit/add: Vital Signs - 24 hr 05/20/25 11:23 05/20/25 14:34 05/20/25 14:46 Temperature 98.6 F 98.6 F Pulse Rate 56 L Pulse Rate [Bilate ral Dorsalis Pedis ] Pulse Rate [Left P ulse Oximeter] 59 L 59 L Respiratory Rate 18 16 Blood Pressure [Ri ght Arm] 144/64 H 141/92 H Pulse Oximetry 92 92 Oxygen Delivery Sd thod Room Air Room Air 05/20/25 15:00 05/20/25 19:46 05/20/25 22:41 Temperature 98 F Pulse Rate Pulse Rate [Bilate ral Dorsalis Pedis ] Pulse Rate [Left P ulse Oximeter] 58 L Respiratory Rate 16 16 16 Blood Pressure [Ri ght Arm] 156/63 H Pulse Oximetry 92 92 95 Oxygen Delivery Sd thod Room Air Room Air Room Air 05/20/25 22:56 05/20/25 23:00 05/21/25 02:59 Temperature 98.6 F 98.9 F Pulse Rate 65 Pulse Rate [Bilate ral Dorsalis Pedis ] Pulse Rate [Left P ulse Oximeter] 65 57 L Respiratory Rate 16 16 Blood Pressure [Ri ght Arm] 168/63 H 138/51 L Pulse Oximetry 91 89 Oxygen Delivery Sd thod Room Air Room Air 05/21/25 07:00 05/21/25 07:00 05/21/25 07:00 Temperature 98.9 F Pulse Rate 55 L Pulse Rate [Bilate ral Dorsalis Pedis ] Pulse Rate [Left P ulse Oximeter] 57 L Respiratory Rate 20 20 Blood Pressure [Ri ght Arm] 153/63 H Pulse Oximetry 93 93 Oxygen Delivery Sd thod Room Air Room Air 05/21/25 11:03 Temperature Pulse Rate Pulse Rate [Bilate ral Dorsalis Pedis ] 61 Pulse Rate [Left P ulse Oximeter] Respiratory Rate Blood Pressure [Ri ght Arm] 138/76 Pulse Oximetry 92 Oxygen Delivery Sd thod Room Air DS: Data Data Completed and Pending Labs on day of discharge: Labs from last 24 hours 05/21/25 05/21/25 05/21/25 06:08 06:08 06:08 WBC RBC Hgb Hct MCV MCH MCHC RDW Coeff of Funmil[place] Plt Count Neut % (Auto) Lymph % (Auto) [place] % (Auto) Eos % (Auto) Baso % (Auto) Neut # (Auto) Lymph # (Auto) [place] # (Auto) Eos # (Auto) Baso # (Auto) Abs Immat Gran (auto) Imm/Tot Granulo (auto) Sodium Potassium Chloride Carbon Dioxide Anion Gap BUN Creatinine Estimated Creat Clear Estimated GFR 63 Glucose 121 H 122 H Calcium 10.4 10.4 Phosphorus 3.2 Albumin 3.5 Urine Color Urine Appearance Urine pH Ur Specific [place] Urine Protein Urine Glucose (UA) Urine Ketones Urine Blood Urine Nitrite Urine Bilirubin Urine Urobilinogen Ur Leukocyte Esterase 05/21/25 05/21/25 05/21/25 06:08 06:08 06:08 WBC RBC Hgb Hct MCV MCH MCHC RDW Coeff of [place]mil[place] Plt Count Neut % (Auto) Lymph % (Auto) [place] % (Auto) Eos % (Auto) Baso % (Auto) Neut # (Auto) Lymph # (Auto) [place] # (Auto) Eos # (Auto) Baso # (Auto) Abs Immat Gran (auto) Imm/Tot Granulo (auto) Sodium Potassium Chloride Carbon Dioxide Anion Gap BUN 25 Creatinine 0.9 0.9 Estimated Creat Clear 31.04 31.04 Estimated GFR 63 Glucose Calcium Phosphorus Albumin Urine Color Urine Appearance Urine pH Ur Specific [place] Urine Protein Urine Glucose (UA) Urine Ketones Urine Blood Urine Nitrite Urine Bilirubin Urine Urobilinogen Ur Leukocyte Esterase 05/21/25 05/21/25 05/21/25 06:08 06:08 06:08 WBC RBC Hgb Hct MCV MCH MCHC RDW Coeff of [place] Plt Count Neut % (Auto) Lymph % (Auto) [place] % (Auto) Eos % (Auto) Baso % (Auto) Neut # (Auto) Lymph # (Auto) [place] # (Auto) Eos # (Auto) Baso # (Auto) Abs Immat Gran (auto) Imm/Tot Granulo (auto) Sodium Potassium Chloride 105 Carbon Dioxide 30 30 Anion Gap 4 L 5 L BUN 25 Creatinine Estimated Creat Clear Estimated GFR Glucose Calcium Phosphorus Albumin Urine Color Urine Appearance Urine pH Ur Specific [place] Urine Protein Urine Glucose (UA) Urine Ketones Urine Blood Urine Nitrite Urine Bilirubin Urine Urobilinogen Ur Leukocyte Esterase 05/21/25 05/21/25 05/21/25 06:08 06:08 06:08 WBC 8.69 RBC 3.56 L Hgb 10.8 L Hct 32.8 L MCV 92 MCH 30 MCHC 33 RDW Coeff of [place] 12.8 Plt Count 289 Neut % (Auto) 67.3 Lymph % (Auto) 18.3 L [place] % (Auto) 9.0 Eos % (Auto) 4.4 Baso % (Auto) 0.7 Neut # (Auto) 5.85 Lymph # (Auto) 1.60 [place] # (Auto) 0.80 Eos # (Auto) 0.38 Baso # (Auto) 0.06 Abs Immat Gran (auto) 0.03 Imm/Tot Granulo (auto) 0.3 Sodium 139 139 Potassium 3.7 3.8 Chloride 104 Carbon Dioxide Anion Gap BUN Creatinine Estimated Creat Clear Estimated GFR Glucose Calcium Phosphorus Albumin Urine Color Urine Appearance Urine pH Ur Specific [place] Urine Protein Urine Glucose (UA) Urine Ketones Urine Blood Urine Nitrite Urine Bilirubin Urine Urobilinogen Ur Leukocyte Esterase 05/20/25 15:27 WBC RBC Hgb Hct MCV MCH MCHC RDW Coeff of [place] Plt Count Neut % (Auto) Lymph % (Auto) [place] % (Auto) Eos % (Auto) Baso % (Auto) Neut # (Auto) Lymph # (Auto) [place] # (Auto) Eos # (Auto) Baso # (Auto) Abs Immat Gran (auto) Imm/Tot Granulo (auto) Sodium Potassium Chloride Carbon Dioxide Anion Gap BUN Creatinine Estimated Creat Clear Estimated GFR Glucose Calcium Phosphorus Albumin Urine Color Yellow Urine Appearance Clear Urine pH 6.5 Ur Specific [place] 1.015 Urine Protein Negative Urine Glucose (UA) Negative Urine Ketones Negative Urine Blood Negative Urine Nitrite Negative Urine Bilirubin Negative Urine Urobilinogen 0.2 Ur Leukocyte Esterase Negative Discharge Plan Discharge Disposition: Home, Self-Care Date of Admission: 05/19/25 20:07 Attending Provider on Discharge: Keena Hyman Primary Care Provider: Jelena Ron Condition: Improved Anticipated Discharge Date/Time: 05/21/25 10:45 Discharge Medications: New melatonin 3 mg Tablet 3 mg PO HS PRN (Reason: Anxiety) Qty: 30 0RF spironolactone 25 mg Tablet 25 mg PO DAILY Qty: 30 0RF metoprolol succinate 25 mg Tablet Extended Release 24 Hr 25 mg PO BID Qty: 30 0RF sacubitril-valsartan [Entresto] 24-26 mg Tablet 1 tab PO BID Qty: 60 0RF furosemide 40 mg Tablet 40 mg PO BID@0800,1400 Qty: 60 0RF Continued insulin glargine 100 unit/mL (3 mL) insulin pen 12 unit subcut HS metformin 500 mg tablet extended release 24 hr 2,000 mg PO QPM insulin aspart U-100 100 unit/mL (3 mL) insulin pen 5 - 7 unit subcut TIDWMEAL Rx Instructions: TAKES 5 UNITS WITH BREAKFAST 6-7 UNITS WITH LUNCH AND SUPPER atorvastatin 10 mg tablet 10 mg PO QPM aspirin 81 mg tablet,delayed release (DR/EC) 81 mg PO DAILY ferrous sulfate 325 mg (65 mg iron) tablet 325 mg PO DAILY cholecalciferol (vitamin D3) 25 mcg (1,000 unit) tablet 25 mcg PO DAILY gabapentin 100 mg capsule 100 mg PO Q12H Rx Instructions: Start with 1 pill once a day, increase to 1 pill twice daily after 3 days, then 1 pill 3 times a day after that. Barring side effects such as sedation. acetaminophen 500 mg capsule 500 - 1,000 mg PO Q4H PRN Discontinued labetalol 200 mg tablet 200 mg PO BID amlodipine 10 mg tablet 10 mg PO DAILY hydroxyzine HCl 25 mg tablet 25 mg PO QPM hydralazine 50 mg tablet 100 mg PO Q8H hydrochlorothiazide 25 mg tablet 25 mg PO DAILY valsartan 160 mg tablet 160 mg PO BID Discharge Orders: Discharge Order (Routine); Ordered 05/21/25 Ordered By: Keena Hyman Patient Education: Metoprolol (By mouth), Spironolactone (By mouth), Furosemide (By mouth), Melatonin (By mouth), Sacubitril/Valsartan (By mouth) (Pollysto Entresto Bob), Heart Failure (DC) Additional Instructions: Medication changes: STOPPED Labetalol, Amlodipine, Valsartan, HCTZ STARTED Metoprolol, Entresto, Lasix and Spironolactone It would be a good idea to weigh yourself daily (call Jelena if your weight increases by more than 3 pounds in 1-2 days, or more than 5 pounds in one week). It would also be a good idea to check your Blood Pressure at home daily and bring those readings to your appointment. The occupational therapist will see you at [facility] for your wrists and also to make sure you don't need additional services. Activity Level: Activity as Tolerated Activity Detail: OT will come see you at [facility] (outpatient evaluation in the apartment) Discharge Diet: Diabetic Follow Up Appointments: Jelena Ron PA-C [Primary Care Provider, Family Practice] - 05/28/25 1:40 pm Referral Note: follow-up at [facility] Forms: Patient Belongings, MyHealth Info Instructions
[2025-05-21] MEDS: FUROSEMIDE 40 MG TABLET PO (13:33)
--- NOTE | 2025-05-21 14:02 | PC.SOCIAL ---
Addendum entered by MITCHELL Acosta 05/21/25 16:33: Discharge planning: cinder worker secure emailed pt's discharge orders for OT with [facility] to BRIGIDO Anton at [facility] who confirmed receipt of them and will send them to the [facility] team to start services. Social work to follow-up as needed. Original Note: Discharge planning: cinder worker met with pt in her room and also talked with pt's daughter, Arpita, over the phone. There have been a lot of medication changes for the pt during this hospital stay. The pt's son who sets up her medication each week is out of town until Tuesday and the pt's other children are feeling overwhelmed with the medication changes. However, pt states that she does not want [facility] taking over her medication set-up and administration because she would then have to be seen by their provider and not be able to see her current PCP anymore. Pt's daughter stated that the family will still continue to assist the pt with her medication set-up and administration. When this worker was talking with BRIGIDO Anton at [facility] in hypotheticals, she stated if someone is living in Independent Living at [facility] and needs services set-up through their Assisted Living, like medication set-up and administration it can take anywhere from three days to a week to set that up depending on when they get the orders, are able to review the medications and move the pt from an Independent Living apartment to an Assisted Living apartment on their campus. cinder worker also spoke to pt's daughter about how OT is recommending bathing assistance to be added for the pt at [facility]. Pt's daughter said that they would have a conversation as a family and decide later if they would like to add on that service for their mother or have one of the family members assist with it. Pt is also being recommended for OT at [facility] through their outpatient rehab program with [facility]. The pt and her daughter were onboard with this and this worker will secure email the discharge orders to [facility] when they are ready. Social work to follow-up as needed.
--- NOTE | 2025-05-21 14:06 | PC.NURSE ---
End of shift [id number]. Patient ambulated in room with stand by assist. Blood sugars were elevated. Insulin given for this. PIV is out and catheter intact. Waiting for son to arrive to go through discharge paperwork and discharge back to prior living arrangement.
--- NOTE | 2025-05-21 16:28 | PC.NURSE ---
Patient discharged with son to [facility] Reviewed discharge instructions with patient and son and answered all questions. Patient given scale to manage weight at home.
--- NOTE | 2025-05-21 17:15 | PC.NURSE ---
Son Gutierrez called and stated that Entresto would not be filled until tomorrow potentially in afternoon/evening. Dr. Carlson and pharmacy are ok with missing tonight and tomorrow morning dose. Instructed son that if he is able to get medication early tomorrow to do BID dosing and if gets it late he may only do one dose but if he is not able to get med tomorrow, he will need to call back for further instruction. Understands this plan.
== END 2025-05-21 16:30 | disposition home or self-care (01) | DRG 291 ==
LOC: ED 16:48 → MEDSURG 17:06
PROVIDERS: Family Medicine; Admitting Provider Internal Medicine; Emergency Provider Emergency Medicine; PCP Physician Assistant; Visit Provider Internal Medicine
DX: I11.0 Hypertensive heart disease with heart failure (principal); I50.31 Acute diastolic (congestive) heart failure; J96.01 Acute respiratory failure with hypoxia; E11.9 Type 2 diabetes mellitus without complications; Z79.4 Long term (current) use of insulin; Z79.84 Long term (current) use of oral hypoglycemic drugs; R94.2 Abnormal results of pulmonary function studies; I05.2 Rheumatic mitral stenosis with insufficiency; G31.84 Mild cognitive impairment of uncertain or unknown etiology; R59.0 Localized enlarged lymph nodes; H91.93 Unspecified hearing loss, bilateral; E78.5 Hyperlipidemia, unspecified
CPT/HCPCS: 36415; 71045; 71275; 80048; 80053; 80061; 80069; 81003; 82803; 82962; 83605; 83735; 83880; 84443; 84484; 85025; 85027; 85379; 86140; 87631; 93005; 93306; 97116; 97161; 97165; 97530; 97535; 99284; 99285; A9270; J1650; J1815; J1938; Q9967

== ENCOUNTER 2025-09-18 16:26 | Emergency (ER) | payer MEDICARE, SELFPAY ==
--- OUTSIDE RECORDS SUMMARY | 2025-09-18 16:29 | XMS_ITS | Data Portability ---
Author Organization [facility], Main Office Address [address] [place] [address] Assessment Encounter Date Assessment Date Assessment LastModified by Organization Details LastModified Time 02/15/2022 02/15/2022 1. Biopsy-proven basal carcinoma left alar crease. 6 mm preoperatively. Verbally and with the digital board in great detail. We discussed the guaranteed bruising and swelling of the left lower eyelid. Pain on a scale of 1-10 of 3-4 for a few days. Increasing pain would be a sign of infection. Risk of bruising and bleeding. The difficulty of reconstructing the nose we reviewed flaps and grafts prior to the procedure. Written and verbal informed consent obtained. Cleansed with alcohol anesthetized 1% lidocaine with epinephrine. Cosmetic lines marked prior to surgery. Mohs case number [id number] Stage I: Curette debulk. 1 to 2 mm margins taken to the mid dermis revealing marked basaloid nodular islands of 456 and 7:00 pole. Slightly towards 8:00. Total sections were 2. Stage II: No debulking peripheral rim of 1 to 2 mm taken to the deep dermis revealing no residual basal carcinoma in portion a of stage II. Total stages 2 total sections 3. Final defect 1.3 x 1.0 cm. A medial cheek based transposition flap was performed by and anesthetized the medial cheek. Flap taken approximately 45 degree angles. Undermined onto the cheek 1 to 2 cm elevated onto the nose. Redundancies removed at the superior aspect of the flap. Closed with 4-0 Vicryl and 4-0 Prolene to be removed in 8 days in [place]. At 1:00 on Tuesday. Ice given. Recommend icing every 2 hours for 20 minutes. Hand written and typewritten and verbal instructions given along with cell phone number. Total stages 2 total sections 3 final defect 1.3 cm with a flap equaling 12 cm??. Undermined laterally 3 cm superiorly 2 cm medially over the dorsum of the nose. Therefore 5 x 4 cm. Pressure dressing applied wound care instructions given verbally and in typewritten and in written format Also discussed prior to the procedure potential need for a revision. And pincushioning.[id number]/23/2022 23:16:06 Plan of Treatment Reminders Order DateSubmit DateProviderLast Modified ByMigule DetailsLast Modified TimeDetailsAppointmentsNone recorded.LabNone recorded.ReferralNone recorded. ProceduresNone recorded.SurgeriesNone recorded.ImagingNone recorded.Medication OrdersNone recorded. Patient TargetsNo targets recorded. Patient InstructionsNo instructions recorded. Reason for Referral None Reported. Medical Equipment None Reported. Medications Name Sig Start Date Stop Date Status Note LastModified by Organization Details LastModified Time atorvastatin 10 mg tablet TAKE 1 TABLET BY MOUTH EVERY DAY activeNot AvailableNot AvailableNot Availablealendronate 70 mg tabletactiveNot AvailableNot AvailableNot Availablechlorthalidone 25 mg tabletactiveNot AvailableNot AvailableNot Availableamlodipine 5 mg tabletTAKE 1 TABLET BY MOUTH EVERY DAYactiveNot AvailableNot AvailableNot Availablemetoprolol tartrate 50 mg tabletTAKE 1 AND 1/2 TABLETS BY MOUTH TWICE DAILYactiveNot AvailableNot AvailableNot Availablelosartan 100 mg tabletactiveNot AvailableNot AvailableNot Availablemetformin ER 500 mg tablet,extended release 24 hractiveNot AvailableNot AvailableNot Availableinsulin aspart (U-100) 100 unit/mL (3 mL) subcutaneous pen activeNot AvailableNot AvailableNot AvailableLantus Solostar U-100 Insulin 100 unit/mL (3 mL) subcutaneous penADMINISTER 16 UNITS UNDER THE SKIN EVERY NIGHT AT BEDTIMEactiveNot AvailableNot AvailableNot AvailableOneTouch Verio test strips TEST FOUR TIMES DAILYactiveNot AvailableNot AvailableNot AvailableBD Suly 2nd Gen Pen Needle 32 gauge x 5/32USE FOUR TIMES DAILY DIRECTEDactiveNot AvailableNot AvailableNot AvailableOneTouch Delica Plus Lancet 30 gaugeTEST DIRECTED FOUR TIMES DAILYactiveNot AvailableNot AvailableNot Available Vitals None Recorded Social History None recorded. Functional Status None recorded. Mental Status None recorded. Family History Nothing Reported. Medical History No medical history recorded. Gynecological HistoryNo gynecological history recorded. Obstetrics History GPAL:G 0 P 0 0 0 0 Past Encounters Encounter ID Performer Location Encounter Start Date Encounter Closed Date Diagnosis/Indication Diagnosis SNOMED-CT Code Diagnosis ICD10 Code Diagnosis IMO Codes Diagnosis Note [id number] Elba Moreno MD Main Office [address],[place] [address] 02/15/2022 12:32:13 02/15/2022 23:17:05 Basal cell carcinoma of nose [id number] C44.311 Health Concerns Section Related Observation LastModified by Organization Detai ls LastModified Time None Recorded Concern Status LastModified by Organization Details LastModified Time None Recorded Advance Directives Directive None Recorded Payers Insurance Date Sequence Insurance Name Policy Number Policy Oh Covered Member ID Oh Member ID Guarantor Name 02/15/2022 1 [employer] - DOS ON O R AFTER 19 (MEDICARE REPLACEMENT/ADVANTAGE - HMO) [id number] Lynn Martins [id number] Lynn Martins Notes Date Note Type Note Provider Name and Address Orga nization Details Recorded Time 02/15/2022 text/html 81-year-old female presents today for Mohs surgery of a biopsy-proven poorly defined basal carcinoma left anterior alar crease. She is accompanied during the informed consent during the entire visit during the reconstruction by her daughter at her bedside. Her past medical history, family history and social history unchanged since her visit in [place]. Review systems: patient feels overall excellent health, weight stable, no issues with bleeding, clotting or healing.Elba Moreno MD [address] [place], [address], [facility] [id number]/23/2022 23:16:54 OBGyn Episode No OBEpisode recorded.
--- OUTSIDE RECORDS SUMMARY | 2025-09-18 16:29 | XMS_ITS | Clinical Summary ---
Author Organization [employer] [facility] Address [facility] [place] [address] Care Team Providers Care Machine Engraver Name Role Phone Jelena Ron Primary Care Provider [phone] Mona Max NP Unavailable [phone] Allergies No known active allergies Medications MedicationSigDispense QuantityRefillsLast FilledStart DateEnd DateStatus OneTouch Delica Plus Lancet 30 gauge misc Indications:Type 2 diabetes mellitus without complication, with long-term current use of insulin (HC)TEST DIRECTED FOUR TIMES DAILY 400 Each 3Active acetaminophen (TYLENOL EXTRA STRGTH) 500 mg tablet Take 500 mg by mouth every 4 hours if needed. Take 1-2 tablets every 4 hours PRN pain max dosing 4000mg in 24 hours.4Active pen needle (BD Suly 2nd Gen Pen Needle) 32 gauge x 5/32 (disposable insulin pen needle) Indications:Type II diabetes mellitus with complication (HC),Type 2 diabetes mellitus without complication, with long-term current use of insulin (HC)Use to administer insulin 4 times daily. Remove the 2 covers on the insulin pen needle before administering insulin dose.As directed. Remove the 2 covers on the insulin pen needle before administering insulin dose. 400 Each 4Active sensor ([employer] G7 Sensor) for continuous blood glucose monitor (CGM) To be used to read blood sugars, follow soil sort worker directions.5Active aspirin enteric coated 81 mg tablet Indications:3rd cranial nerve palsy, leftTake 1 Tablet (81 mg) by mouth once daily with a meal. 90 Tablet 5Active insulin aspart (U-100) (NOVOLOG FLEXPEN) 100 unit/mL (3 mL) pen Indications:Type II diabetes mellitus with complication (HC)5 units before breakfast and 6-7 units before lunch and 5 units before supper meals 60 mL 5Active insulin glargine (U-100) (Lantus Solostar U-100 Insulin) 100 unit/mL (3 mL) pen Indications:Type II diabetes mellitus with complication (HC)Inject 12 units subcutaneous at bedtime. 15 mL 5Active metFORMIN (GLUCOPHAGE XR) 500 mg Extended-Release tablet Indications:Type II diabetes mellitus with complication (HC)Take 4 Tablets (2,000 mg) by mouth once daily with evening meal. 360 Tablet 5Active ferrous sulfate 325 mg delayed release tablet Indications:Iron deficiency anemia, unspecified iron deficiency anemia typeTake 1 Tablet (325 mg) by mouth once daily with a meal. 90 Tablet 5Active melatonin 3 mg tablet Take 3 mg by mouth.5Active wxpxuapm-frr-idnp-FA-vit K-lut (Centrum Silver Women) 8 mg iron-400 mcg-50 mcg tab Take by mouth.5Active metoprolol succinate (TOPROL XL) 25 mg Sustained-Release tablet Indications:Heart failure with preserved ejection fraction, unspecified HF chronicity (HC)Take 1 Tablet (25 mg) by mouth two times daily. 180 Tablet 5Active triamcinolone 0.1 % ointment Indications:DermatitisApply topically to affected area(s) two times daily. 30 g 5Active cholecalciferol (Vitamin D) 1,000 unit tablet Indications:Vitamin D deficiencyTake 1 Tablet (1,000 units) by mouth once daily. 90 Tablet 5Active atorvastatin (LIPITOR) 10 mg tablet Indications:3rd cranial nerve palsy, leftTAKE 1 TABLET BY MOUTH EVERYDAY AT BEDTIME 90 Tablet 5Active hydrOXYzine HCL (ATARAX) 25 mg tablet Indications:Primary insomniaTAKE 1 TABLET BY MOUTH AT BEDTIME 90 Tablet 311/08/2025Active gabapentin (NEURONTIN) 300 mg capsule Indications:Neuropathic painTake 300 mg (1 capsule) at noon and 600 mg (2 capsules) at bedtime. 270 Capsule 5Active valsartan (DIOVAN) 160 mg tablet Indications:HTN (hypertension)TAKE 1 TABLET (160 MG) BY MOUTH DAILY 90 Tablet 5Active amLODIPine (NORVASC) 10 mg tablet Indications:HTN (hypertension)TAKE 1 TABLET BY MOUTH EVERY DAY 90 Tablet 5Active valsartan (DIOVAN) 160 mg tablet Indications:HTN (hypertension)Take 1 Tablet (160 mg) by mouth once daily. 90 Tablet Discontinued amLODIPine (NORVASC) 10 mg tablet Indications:HTN (hypertension)Take 1 Tablet (10 mg) by mouth once daily. 90 Tablet Discontinued Active Problems ProblemNoted DateDiagnosed DateMultiple thyroid wkfsymd2207/30/2025 Overview (07/30/2025): Follow up US due in July 2026. Jelena Ron PA-C, Family Medicine.....................07/30/2025 2:59 PM Mediastinal kupzltujdh63/10/2025(HFpEF) heart failure with preserved ejection duxnfmyf05/03/2025Post herpetic yhxmueote24/30/2024otential for cognitive ozlxszkngk55/12/2023Maxillary pngfjlhou18/12/43731cn cranial nerve palsy, left 09/05/2023asal cell carcinoma (BCC) of ala nasi3217Tytvrcpoojyy72/06/2021 Overview (03/05/2021): DEXA scan 01/2021 CKD (chronic kidney disease) stage 3, GFR 30-59 ml/min10/02/2019 Overview (10/02/2019): Initially decreased 05/2019 Problems with hearing, /02/2018HTN (hypertension)09/14/2016 Hyperlipidemia associated with type 2 diabetes owgtmyzx80/20/2016Type II diabetes mellitus with shqrqfmucmcg51/20/2016 Overview (07/12/2017): Diagnosed about age 60 Resolved Problems ProblemNoted DateDiagnosed DateResolved DateHypertensive zpzmmqw4709/05/2023 08/18/2024Impacted cerumen of left ear Encounters DateTypeDepartmentCare FvvxDzwhrwdkfnh09/04/2025Refill [facility] [address] [place] [address] Jelena Ron PA Refill Request (Valsartan, Furosemide, Amlodipine)08/15/2025 2:[address] [facility] [address] [place] [address] Jelena Ron PA Pain (In left side and into back-seems to be feeling better today-has been using ibuprofen at bedtime)08/15/20256879Stspkz72/07/2025Refill [address] [address] Jelena Ron PA Refill Request (Hydroxyzine Hcl)07/30/2025Orders Only [address] [address] Jelena Ron PA <No scans attached>07/29/2025 1:50 PM CSTAncillary Procedure [address] [address] 07/29/2025 1:00 PM CSTAncillary Procedure [address] [address] 07/29/2025 12:30 PM CSTOrders Only [address] [address] [place], [place] [facility]07/29/20259216Gztmne88/26/2025Refill [address] [address] Jelena Ron PA Refill Request (Atorvastatin)07/11/2025Refill [facility] [address] [place] [address] Jelena Ron PA Refill Request (Cholecalciferol)06/26/2025 1:20 PM CDTOffice Visit [facility] [address] [place] [address] Kim Barraza, OD Eye Exam (DM Exam)06/26/20252901Furard84/24/2025Telephone [facility] [address] [place] [address] Jelena Ron PA Resultsfrom Last 3 Months Immunizations ImmunizationAdministration DatesNext DueCOVID-19 vaccine (Pfizer-BioNTech 30mcg/0.3mL) 12YO+ BIVALENT PF, MDV2COVID-19 vaccine (Pfizer-BioNTech 30mcg/0.3mL) PF, MDV12/23/2020,12/02/2020Influenza Virus, Lmagmkuyfmy65/20/2014, 07/10/2010Influenza, High-dose Rpbrxxiwasw82/20/2016,08/01/2015Influenza, IIV3 (Age >=3 years)06/26/2012,10/15/2008,07/17/2007,07/17/2002Influenza, Inactivated AIIV4 (Age 65+ Years) Preserv Free09/07/2023,08/09/2022,10/07/2021,08/14/2020 Influenza, Inactivated IIV3 (Age 65+ Years) Preserv Free08/15/2025,08/16/2024, 09/27/2019,07/12/2017Pneumococcal Poly,23-Valent (Pneumovax)06/01/2018, 04/05/2005,07/17/2002Pneumococcal conj 13-Valent (Prevnar 13)01/20/2015Tdap 08/01/2015,04/05/2015,04/05/2005Zoster (Shingrix-RZV, recombinant)02/06/2024 Family History RelationNameStatusCommentsSonDeceased (Age 51)suicide Social History Tobacco UseTypesPacks/DayYears UsedDateSmoking Tobacco: NeverSmokeless Tobacco: Never Tobacco Cessation:Counseling Given: Yes Alcohol UseStandard Drinks/WeekCommentsNo0 (1 standard drink = 0.6 oz pure alcohol)rarelyPHQ-2AnswerDate RecordedPHQ-2 TOTAL ZYSUS312Social ConnectionsAnswerDate RecordedDo you often feel lonely or isolated from those around you?Financial Resource StrainAnswerDate RecordedDifficulty of Paying Living Ajcylulv835/29/2025Difficulty of Paying Living ExpensesNot on file 10/24/2024Food InsecurityAnswerDate RecordedDo you worry your food will run out before you are able to buy more?Transportation NeedsAnswerDate RecordedDoes lack of transportation keep you from medical appointments?1 10/24/2024Does lack of transportation keep you from work, meetings or getting things that you need?Housing StabilityAnswerDate RecordedWhat is your housing situation today?UtilitiesAnswerDate RecordedDo you have trouble paying for utilities (for example, heat, electricity, water, phone)?1 10/24/2024CommentsNoSex and Gender InformationValueDate RecordedSex Assigned at BirthNot on fileLegal WlqIqmnsh16/14/2013 5:28 AM CSTGender Identity Not on fileSexual OrientationNot on file Last Filed Vital Signs Vital SignReadingTime TakenCommentsBlood Ffrassde711/7708/15/2025 2:50 PM CIRCUS TRAIN SUPERVISOR Zujqz593408/15/2025 2:50 PM UBUNqtsopjxqat64.8 ??C (98.2 ??F)10/24/2024 2:22 PM CSTRespiratory Xruj5779 6:37 PM CDTOxygen Wxjjbkvhxq54%08/15/2025 2:50 PM CSTInhaled Oxygen Concentration--Sxxbmn56.4 kg (120 lb)08/15/2025 2:50 PM CIRCUS TRAIN SUPERVISOR Rkkvwj392 cm (5' 0.25)08/16/2024 1:04 PM CSTBody Mass Index23.24110/16/2023 1:04 PM CIRCUS TRAIN SUPERVISOR Plan of Treatment DateTypeDepartmentCare Team (Latest Contact Info)Otptxuiwgsi48/19/2026 3:45 PM CSTOffice Visit [facility] [address] [place] [address] Migue Keating, DO [address] [place] [address] Health MaintenanceDue DateLast DoneCommentsRSV vaccine for adults or (1 - 1-dose 75+ series)2015Zoster (shingles) series for age 50+ (2 of 2) /OVID-19 vaccine series ( season)2025 06/14/2022, 09/04/2021, 12/23/2020, Additional history existsTetanus booster 5110/01/2014, 04/05/2015, 04/05/2005BMI (ht and wt on same day) for age 18+, 11/14/2023, 08/12/2023, Additional history exists Medicare Wellness for age 65+, 08/12/2023, 08/09/2022, Additional history existsDepression screening for age 12+, 08/16/2024, 08/15/2023, Additional history existsPneumococcal series for age 50+ Ciilgvinr33/06/2018, 01/20/2015, 04/05/2005, Additional history existsDEXA/DXA scan for age 65+Emsalfzim74/27/2021Influenza VituqdhZebogxjml76/20/2025, 08/16/2024, 09/07/2023, Additional history existsHepatitis B series for 19+Aged OutNo longer eligible based on patient's age to complete this topic Procedures Procedure NamePriorityDate/TimeAssociated DiagnosisCommentsCT CHEST WRoutine 07/29/2025 1:35 PM CIRCUS TRAIN SUPERVISOR Mediastinal adenopathy US THYROID/CBNUHWDANYXFdpzwks10/03/2025 1:18 PM CIRCUS TRAIN SUPERVISOR Enlarged thyroid gland CREATININE,VFGQOZzhczgy69/03/2025 12:55 PM CIRCUS TRAIN SUPERVISOR Observation or evaluation for suspected condition XR DXA BONE DENSITY 2 SITES SISEHNcapmsd86/27/2021 3:02 PM CDT Menopause Osteopenia, unspecified location from Last 3 Months or Most Recently Relevant to Health Maintenance Results * CT CHEST W (07/29/2025 1:35 PM CIRCUS TRAIN SUPERVISOR)Anatomical RegionLateralityModalityCHEST, THORAX, HEARTComputed TomographySpecimen (Source)Anatomical Location / LateralityCollection Method / VolumeCollection TimeReceived Time07/29/2025 5:49 PM CIRCUS TRAIN SUPERVISOR Narrative 07/29/2025 5:49 PM CIRCUS TRAIN SUPERVISOR For Patients: As a result of the Cures Act, medical imaging exams and procedure reports are released immediately into your electronic medical record. You may view this report before your referring provider. If you have questions, please contact your health care provider. Indication: Mediastinal adenopathy Follow up study--schedule 6 weeks from now Technique: CT chest was performed following administration of 100 mL of Omnipaque 350 IV contrast. Please note that all CT scans at this facility use dose modulation, iterative reconstruction, and/or weight-based dosing when appropriate to reduce radiation dose to as low as reasonably achievable. Comparison: 06/13/2025, 05/28/2025, 03/04/2011. Findings: Medical devices: None. ?? Thyroid: Redemonstration of multinodular thyroid, better assessed on same day ultrasound. Lymph nodes: Redemonstration of confluent mediastinal and bilateral hilar lymph nodes; for example: 1.6 centimeter right hilar (). 1.3 centimeter subcarinal (). Vasculature: Aorta and main pulmonary artery diameters are within normal range. ?? Ciqg-sg-qbhzfdff aortic calcification. Heart: Fefk-uj-ydjdjuss coronary artery calcification. No pericardial effusion. ?? Other mediastinal structures: No significant abnormality. ?? Lung parenchyma: Mild biapical pleural-parenchymal scarring. Subtle scattered bilateral centrilobular nodularity most prominent in the left lower lobe. 2 millimeter right lower lobe pulmonary nodule () is again seen. Airways: No significant abnormality. ?? Pleura: Normal. Chest wall and spine: Moderate degenerative changes of the visualized spine. Upper abdomen: Normal. Impression: 1. Persistent confluent mediastinal and bilateral hilar lymphadenopathy, which is nonspecific and may be reactive, though malignancy can not be excluded. 2. Subtle scattered bilateral centrilobular nodularity most prominent in the left lower lobe, whichmay represent atypical infection or inflammation. Please note that all CT scans at this facility use dose modulation, iterative reconstruction, and/or weight-based dosing when appropriate to reduce radiation dose to as low as reasonably achievable. Dictated by Walt Solis MD @ 07/29/2025 5:49:54 PM (Electronically Signed) Procedure Note Jose C Solis MD - 07/29/2025 For Patients: As a result of the Cures Act, medical imagingexams and procedure reports are released immediately into your electronicmedical record. You may view this report before your referring provider.If you have questions, please contact your health care provider. Indication: Mediastinal adenopathy Follow up study--schedule 6 weeks from now Technique: CT chest was performed following administration of 100 mL of Omnipaque 350IV contrast. Please note that all CT scans at this facility use dose modulation,iterative reconstruction, and/or weight-based dosing when appropriate toreduce radiation dose to as low as reasonably achievable. Comparison: 06/13/2025, 05/28/2025, 03/04/2011. Findings: Medical devices: None. Thyroid: Redemonstration of multinodular thyroid, better assessed on sameday ultrasound. Lymph nodes: Redemonstration of confluent mediastinal and bilateral hilarlymph nodes; for example: 1.6 centimeter right hilar (). 1.3 centimeter subcarinal (). Vasculature: Aorta and main pulmonary artery diameters are within normalrange. Yzrj-gc-ugquqtoo aortic calcification. Heart: Kwra-kw-brjuhouh coronary artery calcification. No pericardialeffusion. Other mediastinal structures: No significant abnormality. Lung parenchyma: Mild biapical pleural-parenchymal scarring. Subtle scattered bilateral centrilobular nodularity most prominent in theleft lower lobe. 2 millimeter right lower lobe pulmonary nodule () is again seen. Airways: No significant abnormality. Pleura: Normal. Chest wall and spine: Moderate degenerative changes of the visualizedspine. Upper abdomen: Normal. Impression: 1. Persistent confluent mediastinal and bilateral hilar lymphadenopathy,which is nonspecific and may be reactive, though malignancy can not beexcluded. 2. Subtle scattered bilateral centrilobular nodularity most prominent inthe left lower lobe, which may represent atypical infection orinflammation. Please note that all CT scans at this facility use dose modulation,iterative reconstruction, and/or weight-based dosing when appropriate toreduce radiation dose to as low as reasonably achievable. Dictated by Walt Solis MD @ 07/29/2025 5:49:54 PM (Electronically Signed) Authorizing ProviderResult TypeResult StatusJennbryan Cervantes Asaf PACTFinal Result * US THYROID/PARATHYROID (07/29/2025 1:18 PM CIRCUS TRAIN SUPERVISOR)Anatomical RegionLaterality ModalityTHYROIDUltrasoundSpecimen (Source)Anatomical Location / Laterality Collection Method / VolumeCollection TimeReceived Time07/29/2025 3:00 PM CIRCUS TRAIN SUPERVISOR Impressions 07/29/2025 3:00 PM CIRCUS TRAIN SUPERVISOR Bilateral thyroid nodules. One year follow-up could be considered. FNA not indicated. Dictated by Satish Goodman MD @ 07/29/2025 3:00:23 PM (Electronically Signed) Narrative 07/29/2025 3:00 PM CIRCUS TRAIN SUPERVISOR For Patients: As a result of the Century Cures Act, medical imaging exams and procedure reports are released immediately into your electronic medical record. You may view this report before your referring provider. If you have questions, please contact your health care provider. INDICATION: Enlarged thyroid gland COMPARISON: none TECHNIQUE: Dove scale and color Doppler images were acquired of the thyroid gland. FINDINGS: Isthmus measures 2.4 millimeters. Solid and cystic nodule right thyroid lobe measures 10 x 9 x 12 millimeters, TR 3. Solid and cystic nodule left thyroid lobe measures 13 x 10 x 12 millimeters, TR 3.Solid hypoechoic nodule left thyroid lobe measures 15 x 12 x 13 millimeters, TR 3. Solid and cysticnodule right thyroid lobe measures 17 x 8 x 14 millimeters, TR 3. Additional solid and cystic nodule right thyroid lobe measures 12 x 12 x 10 millimeters, TR 3. All solid nodule right thyroid lobe measures 14 x 11 x 13 millimeters, TR 4. The right lobe measures 4.7 x 1.5 x 2.2 cm and the left lobe measures 4.1 x 1.9 x 1.5 cm in size. ??The color Doppler images demonstrate normal vascularity. There is no evidence of cervical lymphadenopathy or parathyroid mass. Procedure Note Satish Goodman MD - 07/29/2025 For Patients: As a result of the Cures Act, medical imagingexams and procedure reports are released immediately into your electronicmedical record. You may view this report before your referring provider.If you have questions, please contact your health care provider. INDICATION: Enlarged thyroid gland COMPARISON: none TECHNIQUE: Dove scale and color Doppler images were acquired of the thyroid gland. FINDINGS: Isthmus measures 2.4 millimeters. Solid and cystic nodule right thyroidlobe measures 10 x 9 x 12 millimeters, TR 3. Solid and cystic nodule leftthyroid lobe measures 13 x 10 x 12 millimeters, TR 3. Solid hypoechoicnodule left thyroid lobe measures 15 x 12 x 13 millimeters, TR 3. Solidand cystic nodule right thyroid lobe measures 17 x 8 x 14 millimeters, TR3. Additional solid and cystic nodule right thyroid lobe measures 12 x 12x 10 millimeters, TR 3. All solid nodule right thyroid lobe measures 14 x11 x 13 millimeters, TR 4. The right lobe measures 4.7 x 1.5 x 2.2 cm andthe left lobe measures 4.1 x 1.9 x 1.5 cm in size. The color Dopplerimages demonstrate normal vascularity. There is no evidence of cervicallymphadenopathy or parathyroid mass. IMPRESSION: Bilateral thyroid nodules. One year follow-up could be considered. FNA not indicated. Dictated by Satish Goodman MD @ 07/29/2025 3:00:23 PM (Electronically Signed) Authorizing ProviderResult TypeResult StatusJennbryan Cervantes Ron PAUSFinal Result * POCT Creatinine (07/29/2025 12:55 PM CIRCUS TRAIN SUPERVISOR)ComponentValueRef RangeTest Method Analysis TimePerformed AtPathologist SignaturePOCT,CREATININE, ISTAT0.90.6 - 1.3 mg/dL07/29/2025 2:01 PM CSTALBUQUERQUE INDIAN DENTAL CLINICpecimen (Source)Anatomical Location / LateralityCollection Method / VolumeCollection TimeReceived TimeBloodBLOOD SPECIMEN / UnknownQuest Collect / Unknown 07/29/2025 12:55 PM CST07/29/2025 1:00 PM CIRCUS TRAIN SUPERVISOR Narrative Authorizing ProviderResult TypeResult StatusJennbryan Ron PACHEMISTRYFinal ResultPerforming OrganizationAddressCity/State/ZIP CodePhone Number [facility] [employer] [facility] [address] [place] [address], [place] [phone] [facility] [address] [place] [address], * (ABNORMAL) XR DXA BONE DENSITY 2 SITES AXIAL [89030.1] (02/19/2021 3:02 PM CDT)Anatomical RegionLateralityModalitySpine, HIPS, HIPL, HIPROtherSpecimen (Source)Anatomical Location / LateralityCollection Method / VolumeCollection TimeReceived Time Impressions 02/24/2021 4:34 PM CDT Osteoporosis. RECOMMENDATIONS: [...] to assess therapeutic efficacy. Halina Arriaga PA-C [facility] 02/24/2021 Narrative 02/24/2021 4:34 PM CDT XR DXA Bone Mineral Density (BMD) EXAM LOCATION: [address] [address] PATIENT NAME: Lynn Martins DATE OF : [...] two scanners are made by the same soil sort worker. PROCEDURE: Dual-energy x-ray absorptiometry performed with routine [...] Osteoporosis: T-score at or below -2.5 SD Authorizing ProviderResult TypeResult StatusAmy Helen Al MDDEXAFinal Result from Last 3 Months or Most Recently Relevant to Health Maintenance Insurance * Guarantor: Lynn Martins TypeRelation to PatientDate of BirthPhone Billing AddressPersonal/Aaud[address]Mw[phone] [place] [address] Advance Directives * Full Code (Latest Code Status on File) Date ActivatedDate QdvasvavfmeYdvppupm55/11/2023 10:42 PM09/09/2023 6:59 PM QuestionAnswerCommentsCode Status Discussion:* Reviewed Preferences Care Teams Team MemberRelationshipSpecialtyStart DateEnd Date Jelena Ron PA [address] [place] [address] PCP - GeneralPhysician Assistant10/20/23 Mona Max NP [address] [place] [address] Diabetes EducatorRegistered Nurse12/16/23
[2025-09-18 16:43] VITALS: BP 197/72; PULSE 62; RESP 18; TEMP 37.1; O2SAT 93; BMI 21.6
[2025-09-18 16:48] LABS: Appearance Urine Clear (Clear)
--- NOTE | 2025-09-18 17:19 | ED.GENADULT ---
HPI - General Adult General Chief complaint: Altered Mental Status Stated complaint: uti- has dementia Time Seen by Provider: 09/18/25 17:07 History of Present Illness HPI narrative: Pt here w/ family for increased confusion, paranoia, and possible UTI. Reports dx of dementia however, pt has never been informed of this. Daughter reports pt has had a significant decline in function in the last two weeks . Pt does reside independently at [facility]. Is unsure why she is in the ED today. 85-year-old woman presenting to the emergency department with family concern of confusion in some paranoia. They are concerned about a possible urinary tract infection. Seems to be worsening more over the last couple of weeks. There is a recent diagnosis of dementia. No fevers. No discoordination or headaches. Lynn does not have any complaints really though noted that her abdomen was puffy, possibly uncomfortable? But no longer so after having urinated some minutes ago. No clear dysuria. Recently was decreased evening dose of gabapentin going from 300 mg in the morning and 400 mg the evening to 300 mg in the morning and 100 mg in the evening. It is really starting since yesterday that has seemed more confused. History of diabetes type 2 Related Data Home Medications ?Medication ?Instructions ?Recorded ?Confirmed insulin glargine 100 unit/mL (3 12 unit subcut HS 05/25/22 05/20/25 mL) subcutaneous pen insulin aspart U-100 100 unit/mL 5 - 7 unit subcut TIDWMEAL 01/29/23 05/20/25 (3 mL) subcutaneous pen metformin 500 mg tablet,extended 2,000 mg PO QPM 01/29/23 09/18/25 release 24 hr acetaminophen 500 mg capsule 500 - 1,000 mg PO Q4H PRN 05/20/25 09/18/25 aspirin 81 mg tablet,delayed 81 mg PO DAILY 05/20/25 09/18/25 release atorvastatin 10 mg tablet 10 mg PO QPM 05/20/25 05/20/25 cholecalciferol (vitamin D3) 25 25 mcg PO DAILY 05/20/25 09/18/25 mcg (1,000 unit) tablet ferrous sulfate 325 mg (65 mg 325 mg PO DAILY 05/20/25 09/18/25 iron) tablet gabapentin 100 mg capsule 100 mg PO Q12H 05/20/25 09/18/25 amlodipine 10 mg tablet 10 mg PO DAILY 09/18/25 09/18/25 gabapentin 300 mg capsule mg PO 09/18/25 hydroxyzine HCl 25 mg tablet 25 mg PO DAILY 09/18/25 09/18/25 valsartan 160 mg tablet 160 mg PO DAILY 09/18/25 09/18/25 Previous Rx's ?Medication ?Instructions ?Recorded melatonin 3 mg tablet 3 mg PO HS PRN Anxiety #30 tabs 05/21/25 metoprolol succinate 25 mg 25 mg PO BID #30 tabs 05/21/25 tablet,extended release 24 hr sacubitril 24 mg-valsartan 26 mg 1 tab PO BID #60 tabs 05/21/25 tablet (Entresto) spironolactone 25 mg tablet 25 mg PO DAILY #30 tabs 05/21/25 Allergies Allergy/AdvReac Type Severity Reaction Status Date / Time No Known Allergies Allergy Verified 09/18/25 16:48 Review of Systems Status of ROS: Reports: unobtainable due to mental status (Cognitive decline limiting recall) [facility] Medical History (Updated 10/03/25 @ 00:01 by Background Daemon) Mitral stenosis ?I05.0 - Rheumatic mitral stenosis (ICD-10) Mitral valve regurgitation ?I34.0 - Nonrheumatic mitral (valve) insufficiency (ICD-10) Iron deficiency anemia ?D50.9 - Iron deficiency anemia, unspecified (ICD-10) Paresthesia and pain of both upper extremities ?R20.2 - Paresthesia of skin (ICD-10) ?M79.601 - Pain in right arm (ICD-10) ?M79.602 - Pain in left arm (ICD-10) Post herpetic neuralgia ?B02.29 - Other postherpetic nervous system involvement (ICD-10) Cranial nerve III palsy, partial, left ?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.02 - Third [oculomotor] nerve palsy, left eye (ICD-10) Basal cell carcinoma of nose ?C44.311 - Basal cell carcinoma of skin of nose (ICD-10) Osteoporosis ?M81.0 - Age-related osteoporosis without current pathological fracture (ICD-10) Chronic kidney disease, stage 3 ?N18.30 - Chronic kidney disease, stage 3 unspecified (ICD-10) Bilateral hearing loss ?H91.93 - Unspecified hearing loss, bilateral (ICD-10) Diabetes mellitus type 2 with complications ?E11.8 - Type 2 diabetes mellitus with unspecified complications (ICD-10) Hyperlipidemia associated with type 2 diabetes mellitus ?E11.69 - Type 2 diabetes mellitus with other specified complication (ICD-10) ?E78.5 - Hyperlipidemia, unspecified (ICD-10) Essential hypertension ?I10 - Essential (primary) hypertension (ICD-10) Surgical History History of tonsillectomy ?Z90.89 - Acquired absence of other organs (ICD-10) Social History What is your current living situation?: I presently have a place to live Problems where you live: no known problems Problems where you live details: No Known problems In the past 12 months, utilities in danger of being shut off: no In past 12 months, lack of transportation kept you from medical appts, meetings, work, or getting things needed for daily living: no In the past 12 mos, have been you worried that your food would run out before you had money to buy more?: never true In the past 12 mos, the food you bought just didn't last and you didn't have money to buy more?: never true Highest level of school completed/degree received: high school graduate Smoking Status: Never smoker Do you use any of these nicotine containing products: None How often do you have a drink containing alcohol: never How often do you have six or more drinks on one occasion: Never AUDIT-C Alcohol total score: 0 Non-prescribed substance use: denies use Caffeine: Yes How often does anyone, including family, friends and others, physically hurt you: never How often does anyone, including family, friends and others, insult or talk down to you: never How often does anyone, including family, friends and others, threaten you with harm: never How often does anyone, including family, friends and others, scream or curse at you: never Do you think of yourself as: straight/heterosexual Gender Identity: female service: No Exam Narrative: Exam Narrative: Pleasant. NAD. Hard of hearing. Skin is warm and dry. Extremities are without edema. Breathing easily. Lungs are clear. Abdomen is soft protuberant nontender. Heart in regular rate and rhythm with 2/6 systolic murmur. Moving all extremities the difficulty, with appropriate strength. Well-perfused Const: Vital Signs, click to edit/add: Vital Signs - 24 hr 09/18/25 16:43 Temperature 98.8 F Pulse Rate [Pulse Oximeter] 62 Respiratory Rate 18 Blood Pressure [Ri ght Upper Arm] 197/72 H Pulse Oximetry 93 Oxygen Delivery Me thod Room Air Documenting provider has reviewed patient's vital signs: yes Course Vital Signs Vital signs: Initial Vital Signs Temperature 98.8 F 09/18/25 16:43 Temperature Source Temporal Artery Scan 09/18/25 16:43 Pulse Rate 62 09/18/25 16:43 Pulse Rhythm Regular 09/18/25 16:43 Pulse Strength 3+ Normal 09/18/25 16:43 Respiratory Rate 18 09/18/25 16:43 Blood Pressure 197/72 H 09/18/25 16:43 Blood Pressure Mean 113 H 09/18/25 16:43 Blood Pressure Position Sitting 09/18/25 16:43 Pulse Oximetry 93 09/18/25 16:43 Oxygen Delivery Method Room Air 09/18/25 16:43 Vital Signs Temperature 98.8 F 09/18/25 16:43 Pulse Rate 62 09/18/25 16:43 Respiratory Rate 18 09/18/25 16:43 Blood Pressure 197/72 H 09/18/25 16:43 Pulse Oximetry 93 09/18/25 16:43 Oxygen Delivery Method Room Air 09/18/25 16:43 Temperature 98.8 F 09/18/25 16:43 Pulse Rate 62 09/18/25 16:43 Respiratory Rate 18 09/18/25 16:43 Blood Pressure 197/72 H 09/18/25 16:43 Pulse Oximetry 93 09/18/25 16:43 Oxygen Delivery Method Room Air 09/18/25 16:43 Medical Decision Making MDM Narrative Medical decision making narrative: Certainly could represent advancing dementia, medication effect/side effects, urinary tract infection/cystitis, uncontrolled blood sugars. Electrolyte abnormalities perhaps hyponatremia? Will do basic laboratory investigation and pending findings or lack there of, contemplate further evaluation. Labs are generally reassuring. Is otherwise well during time of monitoring here in the emergency department. Urinalysis with some findings that might suggest cystitis but not entirely abnormal perhaps in this age group. She does seem to have some physical symptoms described however. Does not have degree of abdominal discomfort to suggest need for further evaluation at this time. Would offer antibiotic treatment. Sounds like as outpatient will need to review ability to live independently with regard to medications, diabetic management. See patient discharge plan for further discussion Stay well hydrated with water. I might be helpful to have your daughter or other children also have access to your real time blood sugar readings. Prescribing cephalexin from [facility] for what looks like possible urinary tract infection. We will call you if any changes need to be made to treatment plan. Regarding this increasing confusion over the last couple of weeks; I would follow-up with your primary care provider/care team to discuss further your medications and needs in your current living situation. Medical Records Medical records reviewed: Yes I reviewed the patient's medical records Lab Data Lab results reviewed: Yes I reviewed the patient's lab results Labs: Lab Results 09/18/25 09/18/25 09/18/25 Range/Units 16:30 17:55 18:04 WBC 9.05 (4.50-11.00) K/uL RBC 4.20 (4.00-5.20) m/uL Hgb 12.6 (12.0-16.0) gm/dL Hct 37.9 (33.0-51.0) % MCV 90 (80-100) fL MCH 30 (26-34) pg MCHC 33 (32-36) gm/dL RDW Coeff of Funmilayo 12.4 (11.5-15.5) % Plt Count 254 (140-440) K/uL Neut % (Auto) 74.5 H (42.0-72.0) % Lymph % (Auto) 14.8 L (20-44) % Collier % (Auto) 7.4 (0.0-11.0) % Eos % (Auto) 2.2 (0.0-7.0) % Baso % (Auto) 0.4 (0.0-3.0) % Neut # (Auto) 6.70 (1.7-7.0) K/uL Lymph # (Auto) 1.30 (0.90-2.90) K/uL Collier # (Auto) 0.70 (0.00-0.90) K/UL Eos # (Auto) 0.20 (0.00-0.50) K/uL Baso # (Auto) 0.04 (0.00-0.30) K/uL Abs Immat Gran (auto) 0.06 (0.00-0.30) K/uL Imm/Tot Granulo (auto) 0.7 % Sodium 136 (135-149) mmol/L Potassium 4.2 (3.6-5.1) mmol/L Chloride 102 (96-114) mmol/L Carbon Dioxide 29 (20-32) mmol/L Anion Gap 5 L (7-15) mEq/L BUN 21 (7-30) mg/dL Creatinine 0.8 (0.5-1.5) mg/dL Estimated Creat Clear 32.53 Estimated GFR 72 ml/min Glucose 186 H (60-115) mg/dL Calcium 10.9 H (8.4-10.6) mg/dL C-Reactive Protein 0.8 (0.5-1.0) mg/dL Urine Color Yellow (Yellow) Urine Appearance Clear (Clear) Urine pH 5.5 (5.0-8.5) Ur Specific [place] >= 1.030 (1.000-1.030) Urine Protein 2+ A (Negative) Urine Glucose (UA) Negative (Negative) Urine Ketones Negative (Negative) Urine Blood 1+ A (Negative) Urine Nitrite Negative (Negative) Urine Bilirubin Negative (Negative) Urine Urobilinogen 0.2 (0.2-1.0) Ur Leukocyte Esterase 1+ A (Negative) Urine RBC 2-5 A (0-2) Urine WBC 5-10 A (0-5) Ur Squamous Epith Cells Few (None-Few) Urine Bacteria None (None) SARS-CoV-2 (PCR) Negative SARS-CoV-2 (Negative) Influenza Type A (PCR) Negative PCR FLU A (Negative) Influenza Type B (PCR) Negative PCR FLU B (Negative) RSV (PCR) Negative PCR RSV (Negative) Discharge Plan Discharge Clinical Impression: Confusion, Cystitis Patient Disposition: Home w/ Parent or Adult Condition: Stable Instructions: Urinary Tract Infection in Older Adults (ED) Additional Instructions: Stay well hydrated with water. I might be helpful to have your daughter or other children also have access to your real time blood sugar readings. Prescribing cephalexin from [facility] for what looks like possible urinary tract infection. We will call you if any changes need to be made to treatment plan. Regarding this increasing confusion over the last couple of weeks; I would follow-up with your primary care provider/care team to discuss further your medications and needs in your current living situation. Prescriptions: No Action insulin glargine 100 unit/mL (3 mL) insulin pen 12 unit subcut HS metformin 500 mg tablet extended release 24 hr 2,000 mg PO QPM insulin aspart U-100 100 unit/mL (3 mL) insulin pen 5 - 7 unit subcut TIDWMEAL Rx Instructions: TAKES 5 UNITS WITH BREAKFAST 6-7 UNITS WITH LUNCH AND SUPPER atorvastatin 10 mg tablet 10 mg PO QPM aspirin 81 mg tablet,delayed release (DR/EC) 81 mg PO DAILY ferrous sulfate 325 mg (65 mg iron) tablet 325 mg PO DAILY cholecalciferol (vitamin D3) 25 mcg (1,000 unit) tablet 25 mcg PO DAILY gabapentin 100 mg capsule 100 mg PO Q12H Rx Instructions: Start with 1 pill once a day, increase to 1 pill twice daily after 3 days, then 1 pill 3 times a day after that. Barring side effects such as sedation. acetaminophen 500 mg capsule 500 - 1,000 mg PO Q4H PRN melatonin 3 mg Tablet 3 mg PO HS PRN (Reason: Anxiety) Qty: 30 0RF spironolactone 25 mg Tablet 25 mg PO DAILY Qty: 30 0RF metoprolol succinate 25 mg Tablet Extended Release 24 Hr 25 mg PO BID Qty: 30 0RF sacubitril-valsartan [Entresto] 24-26 mg Tablet 1 tab PO BID Qty: 60 0RF amlodipine 10 mg tablet 10 mg PO DAILY gabapentin 300 mg capsule PO hydroxyzine HCl 25 mg tablet 25 mg PO DAILY valsartan 160 mg tablet 160 mg PO DAILY Follow Up/Referrals: Jelena Ron PA-C [Primary Care Provider, Family Practice] Stand Alone Forms: MyHealth Info Instructions
[2025-09-18 18:13] LABS: Hematocrit* 37.9 % (33.0-51.0); Hemoglobin* 12.6 gm/dL (12.0-16.0); Immature Granulocytes Abs Auto 0.06 K/uL (0.00-0.30); Immature Granulocytes Pct Auto 0.7 %; Mean Corpuscular HGB Conc 33 gm/dL (32-36); Mean Corpuscular Hemoglobin 30 pg (26-34); Mean Corpuscular Volume 90 fL (80-100); RDW Coefficient of Variation % 12.4 % (11.5-15.5); Red Blood Count* 4.20 m/uL (4.00-5.20); White Blood Count* 9.05 K/uL (4.50-11.00)
[2025-09-18 18:14] LABS: Lymphocytes Absolute Auto 1.30 K/uL (0.90-2.90); Slide Review Reflex No
[2025-09-18 18:18] LABS: Chloride* 102 mmol/L (96-114); Potassium* 4.2 mmol/L (3.6-5.1); Sodium* 136 mmol/L (135-149)
[2025-09-18 18:22] LABS: Anion Gap 5 mEq/L (7-15); Blood Urea Nitrogen* 21 mg/dL (7-30); Calcium* 10.9 mg/dL (8.4-10.6); Carbon Dioxide* 29 mmol/L (20-32); Creatinine* 0.8 mg/dL (0.5-1.5); Est. Creatinine Clearance* 32.53; Estimated Glomerular Filt Rate 72 ml/min; Glucose* 186 mg/dL (60-115)
[2025-09-18 19:00] LABS: PCR FLU A Negative PCR FLU A (Negative); PCR FLU B Negative PCR FLU B (Negative); PCR RSV Negative PCR RSV (Negative); SARS PCR* Negative SARS-CoV-2 (Negative)
== END 2025-09-18 19:32 | disposition home or self-care (01) ==
PROVIDERS: Emergency Provider Family Medicine; PCP Physician Assistant
DX: N30.91 Cystitis, unspecified with hematuria (principal); F03.90 Unspecified dementia, unspecified severity, without behavioral disturbance, psychotic disturbance, mood disturbance, and anxiety; E11.9 Type 2 diabetes mellitus without complications; Z79.4 Long term (current) use of insulin
CPT/HCPCS: 36415; 80048; 81001; 85025; 86140; 87086; 87631; 99284